=== PATIENT | male | born 1955 | race Caucasian/White ===

== ENCOUNTER 2020-02-15 19:22 | Observation (INO) | payer MEDICARE, SELFPAY ==
--- NOTE | ~2020-02-15 | XR_ITS ---
EXAMINATION: XR hand RT 2V INDICATION: Right hand pain TECHNIQUE: Three views of the right hand are obtained. COMPARISON: None available FINDINGS: There is no acute fracture. There are old fractures of the fifth metacarpal and ulnar stylo id. Ziee-ea-ffbkssbo polyarticular osteoarthritis is present. The soft tissues are unremarkable. IMPRESSION: 1. No acute osseous abnormality. Reviewed, dictated and finalized at location A.
--- NOTE | ~2020-02-15 | CT_ITS ---
EXAMINATION: CT cervical spine wo con DATE: 02/15/2020 20:25 INDICATION: Head injury TECHNIQUE: Computed tomography (CT) of the cervical spine was performed without intravenous contrast. The dose-length product (DLP) was 565.80 mGy-cm. Automated exposure control and iterative reconstruc tion technique were employed. COMPARISON: None FINDINGS: There are 2 mm of anterolisthesis of C2 on C3 and C3 on C4. There is fusion of the C5-C7 ve rtebral bodies. No fracture is identified. There is moderate to severe facet and uncovertebral joint osteoarthritis. The odontoid is intact. The prevertebral soft tissues are normal. IMPRESSION: 1. Severe cervical spondylosis without acute findings. Reviewed, dictated and finalized at location A.
--- NOTE | ~2020-02-15 | XR_ITS ---
EXAMINATION: XR hand LT 2V INDICATION: Left hand pain TECHNIQUE: Three views of the left hand are obtained. COMPARISON: None available FINDINGS: There appear to be prior fractures of the ulnar styloid and lunate. No definite acute osseo us abnormality is identified. There is gahg-pt-orevwnto polyarticular osteoarthritis. The soft tissue s are unremarkable. IMPRESSION: 1. No acute osseous abnormality. Reviewed, dictated and finalized at location A.
--- NOTE | ~2020-02-15 | CT_ITS ---
EXAMINATION: CT brain wo con INDICATION: Head injury COMPARISON: None TECHNIQUE: Standard unenhanced head CT. The dose-length product (DLP) was 605.33 mGy-cm. The mA was a djusted according to patient size. Iterative reconstruction technique was employed. FINDINGS: There is a left frontal scalp hematoma. There is no acute intraparenchymal hemorrhage. No e vidence of mass lesion. No evidence of acute infarction. There is moderate periventricular and subcor tical hypodensity probably related to small vessel ischemic disease. There is moderate prominence of the sulci and ventricles related to cerebral atrophy. Intracranial calcified cerebral atherosclerosis is noted. There are no extra-axial collections. There is no mass effect or midline shift. The orbits are unremarkable. Comminuted bilateral nasal bone fractures are noted. There is mild mucosal thicke nida of the paranasal sinuses. IMPRESSION: 1. Left frontal scalp hematoma without acute intracranial abnormality. 2. Age related findings. 3. Comminuted bilateral nasal bone fractures. Reviewed, dictated and finalized at location A.
--- NOTE | ~2020-02-15 | CT_ITS ---
EXAMINATION: CT facial bones wo con DATE: 02/15/2020 20:26 INDICATION: Head injury, facial pain TECHNIQUE: Computed tomography (CT) of the facial bones and maxillofacial region was performed withou t intravenous contrast. The dose-length product (DLP) was 661.63 mGy-cm. Automated exposure control a nd iterative reconstruction technique were employed. COMPARISON: None. FINDINGS: There are comminuted bilateral nasal bone fractures. A left frontal scalp hematoma is noted . There is partial opacification of the paranasal sinuses. No additional acute abnormality of the fac ial bones is identified. IMPRESSION: 1. Comminuted bilateral nasal bone fractures. Reviewed, dictated and finalized at location A.
[2020-02-15 19:22] VITALS: BP 135/77; PULSE 86; RESP 20; TEMP 36.7; O2SAT 95
[2020-02-15 19:52] LABS: Hematocrit 47.7 % (37.0-46.0); Hemoglobin 16.2 g/dL (12.4-15.3); Mean Corpuscular Hemoglobin 31.4 pg (27.0-31.0); Mean Corpuscular Volume 92.4 fL (78.0-102.0); Mean Platelet Volume 9.4 fl (8.7-11.0); Platelet Count Result 204 K/mm3 (150-420); Red Blood Count 5.16 M/mm3 (4.70-6.10); Red Cell Distribution Width 12.1 % (11.6-14.4); White Blood Count 7.9 K/mm3 (4.8-10.8)
[2020-02-15 20:07] LABS: Alanine Aminotransferase 22 U/L (16-63); Albumin Level 3.8 g/dL (3.4-5.0); Alkaline Phosphatase 95 U/L (46-116); Anion Gap 10 mmol/L (8-16); Aspartate Amino Transferase 16 U/L (15-37); Bilirubin,Total 0.6 mg/dL (0.00-1.00); Blood Urea Nitrogen 14 mg/dL (7-18); Calcium 8.3 mg/dL (8.5-10.1); Carbon Dioxide 26 mmol/L (21-32); Chloride 93 mmol/L (98-108); Estimated Glomerular Filt Rate > 60; Ethanol 129 mg/dL (0-6); Glucose 98 mg/dL (70-99); Osmolality Calculated 268 mOsm/kg (285-295); Partial Thromboplastin Time 27.3 SEC (22.3-31.6); Potassium 4.1 mmol/L (3.5-5.1); Prothrombin Time 10.4 Seconds (9.64-11.0); Sodium 129 mmol/L (136-145); Total Protein 7.2 g/dL (6.4-8.2)
[2020-02-15 20:20] LABS: Creatine Kinase 145 U/L (39-308)
[2020-02-15] MEDS: KETOROLAC 30 MG/ML VIAL (*BKC) IV PUSH (20:22)
[2020-02-15] MEDS: SODIUM CHLORIDE 0.9% IV 1,000 ML 999 ML IV CONT (20:22)
[2020-02-15] MEDS: TETANUS,DIPHTHERIA,AC PERTUSSIS ADULT 0.5 ML (ADACEL) IM (20:23)
[2020-02-15 20:44] LABS: Add Urine Microscopic? YES; Appearance Urine Clear (Clear); Bilirubin Urine Negative (Negative); Blood Urine Negative (Negative); Color Urine Yellow (Yellow); Glucose Urine UA Negative (Negative); Ketones Urine Trace (Negative); Leukocyte Esterase Ur Negative (Negative); Nitrate Urine Negative (Negative); Protein Urine Negative (Negative); Urobilinogen Urine 0.2 mg/dL (0.2-1.0); pH Urine 5.5 (5.0-8.0)
--- NOTE | 2020-02-15 20:48 | PC.NURSE ---
PT SLEEPING, EASILY AROUSED WHEN SPOKEN TO.
[2020-02-15 20:49] LABS: RBC Urine None seen /hpf (0-2)
[2020-02-15 20:50] LABS: Bacteria Urine None seen /hpf; Mucus Urine None seen /lpf; Squamous Epithelial Cell Urine None seen /hpf (Few); WBC Urine None seen /hpf (0-3)
--- NOTE | 2020-02-15 20:57 | PC.NURSE ---
CALL TO [facility] FOR CONSULT WITH ENT/FACIAL. SPOKE WITH
--- NOTE | 2020-02-15 21:30 | ED.FALL ---
HPI - Fall General Chief Complaint: Fall Stated Complaint: ambulance History of Present Illness HPI Narrative: This is a 64-year-old gentleman presents via EMS after he was drinking earlier today and [place] the [address] [place] he was going to [place] he tripped and fell and caused the are nasal epistaxis and of pain nasal bones, was having some neck discomfort unsure of loss of consciousness, and fell on his outstretched hands causing some pain and inflammation. Unsure of loss of consciousness but currently there is no headache no blurry vision no shortness of breath although he did present with epistaxis and deviated septum. There is no chest pain no abdominal pain no fever chills no cough, no nausea or vomiting no abdominal pain. Does have an abrasion to the left frontal scalp above the left eyebrow area small puncture wound to the bridge of his nose. Patient has been drinking alcohol, and took a fall injuring his facial bones with some abrasions and nasal deviation with epistaxis. complaint: fall Onset (ago): hour(s) Fall from: standing Fall witnessed: yes, by bystander Place fall occurred: street Loss of consciousness: unsure Prolonged down time: no Symptoms prior to fall: none Context: tripped/slipped Location of injury: head Related Data Home Medications Medication Instructions Recorded Confirmed albuterol sulfate 2 puff INHALATION PRN 02/15/20 02/15/20 albuterol sulfate [ProAir HFA] 2 puff INHALATION DAILY 02/15/20 02/15/20 amlodipine 5 mg PO DAILY 02/15/20 02/15/20 enalapril maleate 20 mg PO DAILY 02/15/20 02/15/20 gabapentin 600 mg PO DAILY 02/15/20 02/15/20 montelukast 10 mg PO DAILY 02/15/20 02/15/20 sertraline 100 mg PO DAILY 02/15/20 02/15/20 Allergies Allergy/AdvReac Type Severity Reaction Status Date / Time No Known Allergies Allergy Verified 02/15/20 19:56 Review of Systems Review of Systems: All systems reviewed & are unremarkable except as noted in HPI and below PMFSH Past Medical History Medical History COPD (chronic obstructive pulmonary disease) Parkinsons Exam Const: General: no acute distress Orientation/consciousness: patient oriented x3 HENMT: Head: normal to inspection, contusion and hematoma Head images: 1. puncture wound bridge of his nose approximately 0.5cm, and abrasion above his left eyebrow Eyes: Conjunctivae: conjunctivae normal Pupils: Equal, round and reactive pupils present EOM: EOMs intact bilaterally Direct Ophthalmoscopy: no photophobia Neck: Neck: normal visual inspection, no lymphadenopathy and no meningeal signs Chest: Chest palpation & inspection: normal inspection of the chest Resp: Effort & Inspection: normal respiratory effort Auscultation: clear to auscultation bilaterally Cardio: Rate: regular rate Rhythm: regular rhythm GI: Auscultation: normal bowel sounds Urinary Catheter: Urinary Catheter: patent and draining Back/Spine/Pelvis: Back: no CVA tenderness Skin: Wounds: wounds noted Other: avulsion injury to his right hand, puncture wound to the bridge of his nose and abrasion to the left eyebrow area Neuro: General: patient oriented x3, moves all extremities and no meningeal signs Extrem: General: normal to inspection and no pedal edema Psych: Appearance: disheveled Mental Status: mental status grossly normal Affect: normal affect Thought content: Yes Normal thought content present Course Course Emergency Course: reassessment of patient, appears comfortable pain level is adequately controlled after IV Toradol. Informed patient of talking to facial surgeon at [place] in [facility] Dr. Caraballo and informed patient of having a follow-up an 1 to 2 weeks. Vital Signs Vital signs: Vital Signs Temperature 36.7 C 02/15/20 19:22 Pulse Rate 86 02/15/20 19:22 Respiratory Rate 20 02/15/20 19:22 Blood Pressure 135/77 02/15/20 19:22 Puls
[2020-02-15 21:37] VITALS: BP 120/76; PULSE 81; RESP 20; TEMP 37.1; O2SAT 98
[2020-02-15 22:00] VITALS: BP 153/84; PULSE 88; RESP 20; TEMP 37.1; O2SAT 93
--- NOTE | 2020-02-15 22:30 | ADMGEN ---
This patient, Andrez Owens, was admitted to 2nd Floor Room 207-1. Patient oriented to hospital policies and general routines including ID bracelet, bed and alarms, visiting hours, pain management, procedures, bathroom and other care routines, personal items, smoking policy, room service/diet, and visiting hours. Valuables list includes clothing, keys and shoes. Information on how to activate the Rapid Response Team has been discussed. Patient are encouraged to report perceived risks to care and to ask questions if they do not understand what they are told or what they should do.
--- NOTE | 2020-02-15 22:35 | PC.NURSE ---
Patient has steri strips to left hand and has a dressing over bridge of nose with bright red blood on it.
[2020-02-15] MEDS: SODIUM CHLORIDE 0.9% IV 1,000 ML 100 ML IV CONT (22:41)
--- NOTE | 2020-02-15 23:06 | PC.NURSE ---
[facility] pharmacy called questioning patient's albuterol Hfa x2 orders. Spoke with Dr Mina with new orders received and noted.
[2020-02-16] VITALS (9 sets, daily range): BP systolic 93–162; BP diastolic 32–108; PULSE 76–110; RESP 20–24; TEMP 36.7–37.1; O2SAT 93–94; BMI 36.3
[2020-02-16] MEDS: IPRATROPIUM 0.5 MG/ALBUTEROL SULFATE 2.5 MG AMPUL.NEB 3 ML INHALATION ×3 (00:15→12:20)
--- NOTE | 2020-02-16 02:00 | PC.NURSE ---
Dressing to bridge of nose still has same amount of blood as when he was first admitted. Left eyelid beginning to bruise.
--- NOTE | 2020-02-16 06:00 | PC.NURSE ---
Dressing to bridge of nose has more bright blood on it than earlier. Dressing removed and area cleansed with NS. No active bleeding noted. New dressing applied. Left eyelid continues to get more bruised. Patient tolerated well.
[2020-02-16 07:33] LABS: Basophils Absolute Auto 0.02 K/mm3 (0.00-0.10); Basophils Percent Auto 0.4 % (0.0-1.0); Eosinophils Absolute Auto 0.05 K/mm3 (0.02-0.50); Eosinophils Percent Auto 0.9 % (1.0-6.0); Hematocrit 47.5 % (37.0-46.0); Hemoglobin 16.1 g/dL (12.4-15.3); Immature Granulocyte Absolute 0.02 K/mm3 (0.00-0.00); Immature Granulocyte Percent A 0.4 % (0.0-0.0); Lymphocytes Absolute Auto 1.71 K/mm3 (1.10-4.50); Lymphocytes Percent Auto 30.5 % (18.0-42.0); Mean Corpuscular HGB Conc 33.9 g/dL (32.0-36.0); Mean Corpuscular Hemoglobin 30.9 pg (27.0-31.0); Mean Corpuscular Volume 91.2 fL (78.0-102.0); Mean Platelet Volume 9.4 fl (8.7-11.0); Monocytes Absolute Auto 0.55 K/mm3 (0.10-0.90); Monocytes Percent Auto 9.8 % (2.0-11.0); Neutrophils Absolute Auto 3.3 K/mm3 (1.7-7.2); Platelet Count Result 179 K/mm3 (150-420); Red Blood Count 5.21 M/mm3 (4.70-6.10); Red Cell Distribution Width 12.1 % (11.6-14.4); White Blood Count 5.6 K/mm3 (4.8-10.8)
[2020-02-16 08:10] LABS: Alanine Aminotransferase 28 U/L (16-63); Albumin Level 3.4 g/dL (3.4-5.0); Alkaline Phosphatase 88 U/L (46-116); Anion Gap 6 mmol/L (8-16); Aspartate Amino Transferase 15 U/L (15-37); Bilirubin,Total 0.7 mg/dL (0.00-1.00); Blood Urea Nitrogen 10 mg/dL (7-18); Calcium 8.3 mg/dL (8.5-10.1); Carbon Dioxide 29 mmol/L (21-32); Chloride 103 mmol/L (98-108); Estimated CRCL calculation 107 ml/min; Estimated Glomerular Filt Rate > 60; Glucose 116 mg/dL (70-99); Magnesium 2.2 mg/dL (1.8-2.4); Osmolality Calculated 286 mOsm/kg (285-295); Potassium 4.2 mmol/L (3.5-5.1); Sodium 138 mmol/L (136-145); Total Protein 6.7 g/dL (6.4-8.2)
[2020-02-16] MEDS: ALBUTEROL SULFATE (*SP) INHALER 2 PUFF INHALATION (08:23)
[2020-02-16] MEDS: SODIUM CHLORIDE 0.9% IV 1,000 ML 100 ML IV CONT (08:23)
[2020-02-16] MEDS: ACETAMINOPHEN 325 MG TABLET 650 MG PO (08:24)
[2020-02-16] MEDS: ENALAPRIL MALEATE 5 MG TABLET 20 MG PO (08:24)
[2020-02-16] MEDS: GABAPENTIN 300 MG CAPSULE 600 MG PO (08:24)
[2020-02-16] MEDS: MONTELUKAST SODIUM 10 MG TABLET PO (08:24)
[2020-02-16] MEDS: amLODIPine BESYLATE 5 MG TABLET PO (08:25)
[2020-02-16] MEDS: SERTRALINE HCL 50 MG TABLET 100 MG PO (08:25)
--- NOTE | 2020-02-16 14:11 | PM.SD ---
Same Day Admit/Disch: HPI History of Present Illness Chief complaint: ALCOHOL INTOXICATION Narrative: Andrez Owens is a 64 year old male who admits to having a few alcoholic beverages yesterday before walking across the street falling forward injuring his face. Patient states that he only drank 2-3 drinks and he does this only twice a week. EtOH level in the ER was 129. patient does not complain too much about his nasal fracture and did not request any additional pain medication from me. Patient was placed in observation while alcohol levels decreased and to monitor for any mental status changes due to the head injury which there were no changes. [facility] Past Medical History Medical History COPD (chronic obstructive pulmonary disease) Parkinsons Social History Social History Smoking packs per day: 1 Smoking cigarettes per day: 20.0 Years smoked: 47 Smoking pack-years: 47.00 Smoking status: Current every day smoker Tobacco type: cigarettes Second hand tobacco smoke exposure: Yes Alcohol intake: current Drinks per week: 1 Substance use: never Gender identity (if verbalized by the patient): Male Sexual Orientation (if Verbalized by the Patient): Straight or Heterosexual Spiritual care concerns: No Same Day Admit/Disch: Med Pre-admit Medications Home Medications Medication Instructions Recorded Confirmed Type albuterol sulfate 2 puff INHALATION PRN 02/15/20 02/15/20 History albuterol sulfate [ProAir HFA] 2 puff INHALATION DAILY 02/15/20 02/15/20 History amlodipine 5 mg PO DAILY 02/15/20 02/15/20 History enalapril maleate 20 mg PO DAILY 02/15/20 02/15/20 History gabapentin 600 mg PO DAILY 02/15/20 02/15/20 History montelukast 10 mg PO DAILY 02/15/20 02/15/20 History sertraline 100 mg PO DAILY 02/15/20 02/15/20 History Exam Const: General: cooperative and comfortable Nutritional Appearance: obese Orientation/consciousness: oriented to person, oriented to place and oriented to time ( and events) HENMT: Face images: 1. obvious deformity bridge of the nose, swelling, small abrasions Eyes: Alignment and Position: alignment normal Pupils: Equal, round and reactive pupils present Resp: Effort & Inspection: normal respiratory effort Auscultation: clear to auscultation bilaterally Cardio: Rate: regular rate Rhythm: regular rhythm Heart sounds: S1 normal heart sound present and S2 normal heart sound present Neuro: General: oriented to person, oriented to place and oriented to time ( and events) Cranial nerves: Yes CN's II-XII intact bilaterally ( grossly intact) Extrem: Right upper extremity: normal to inspection Left upper extremity: normal to inspection Right lower extremity: no edema Left lower extremity: no edema DS: Data Data Completed and Pending Labs on day of discharge: Labs from last 24 hours 02/16/20 02/16/20 02/15/20 07:27 07:27 20:39 WBC 5.6 RBC 5.21 Hgb 16.1 H Hct 47.5 H MCV 91.2 MCH 30.9 MCHC 33.9 RDW 12.1 Plt Count 179 MPV 9.4 Immature Gran % (Auto) 0.4 H Neut % (Auto) 58.0 Lymph % (Auto) 30.5 Sampson % (Auto) 9.8 Eos % (Auto) 0.9 L Baso % (Auto) 0.4 Lymph # (Auto) 1.71 Sampson # (Auto) 0.55 Eos # (Auto) 0.05 Baso # (Auto) 0.02 Abs Immat Gran (auto) 0.02 H Absolute Neuts (auto) 3.3 Absolute Nucleated RBC 0.00 Nucleated RBC % 0.0 PT INR APTT Sodium 138 Potassium 4.2 Chloride 103 Carbon Dioxide 29 Anion Gap 6 L BUN 10 Creatinine 0.63 L Estim Creat Clear Calc 107 Estimated GFR > 60 Glucose 116 H Calculated Osmolality 286 Calcium 8.3 L Magnesium 2.2 Total Bilirubin 0.7 AST 15 ALT 28 Alkaline Phosphatase 88 Total Creatine Kinase Total Protein 6.7 Albumin 3.4 Urine Color Yellow Urine Appearance
== END 2020-02-16 19:00 | disposition home or self-care (01) ==
LOC: CHSED 21:38 → CHS2ND 02-16 07:52
PROVIDERS: Admitting Provider Emergency Medicine; Emergency Provider Emergency Medicine; Visit Provider Emergency Medicine
DX: S02.2XXA Fracture of nasal bones, initial encounter for closed fracture (principal); S01.23XA Puncture wound without foreign body of nose, initial encounter; W01.0XXA Fall on same level from slipping, tripping and stumbling without subsequent striking against object, initial encounter; E87.1 Hypo-osmolality and hyponatremia; J44.9 Chronic obstructive pulmonary disease, unspecified; G20 Parkinson's disease; R04.0 Epistaxis; F10.920 Alcohol use, unspecified with intoxication, uncomplicated; F17.210 Nicotine dependence, cigarettes, uncomplicated; Z79.899 Other long term (current) drug therapy
CPT/HCPCS: 36415; 70450; 70486; 72125; 73120; 80053; 80307; 81001; 82550; 83735; 85025; 85027; 85610; 85730; 90471; 90715; 94640; 96360; 96361; 96374; 99284; 99285; A9270; G0378; G0379; J1885; J7030

== ENCOUNTER 2020-07-12 12:27 | Emergency (ER) | payer MEDICARE, SELFPAY ==
--- NOTE | ~2020-07-12 | XR_ITS ---
EXAMINATION: XR chest 2V EXAM DATE: 07/12/2020 13:15 INDICATION: Cough and SOB, COPD, . TECHNIQUE: Frontal and lateral projections of the chest obtained and reviewed. Comparison is made to prior examination from 06/12/2006. FINDINGS: Interval development of left lower lobe masslike density measuring about 3 cm. Appearance is suspicious for primary lung cancer. The lungs are otherwise clear. There are no pleural effusions . The cardiomediastinal silhouette is within normal limits. There is no pneumothorax suspected. Mi ld to moderate thoracic spondylosis and mid thoracic compression fractures which appear chronic. IMPRESSION: Left lower lobe masslike opacity suspicious for primary lung cancer. Chest CT with contra st recommended. Reviewed, dictated and finalized at location B. SETTER IMPRESSION: Left lower lobe masslike opacity suspicious for primary lung cancer . Chest CT with contrast recommended.
[2020-07-12 12:54] VITALS: BP 150/88; PULSE 84; RESP 20; TEMP 37.1; O2SAT 95
--- NOTE | 2020-07-12 13:00 | ED.DIZZY ---
HPI - Dizziness General Chief Complaint: Dizziness Stated Complaint: sick /arm and hand pain/ cough Time Seen by Provider: 07/12/20 12:29 Source: patient and RN notes reviewed Mode of arrival: ambulatory Limitations: no limitations History of Present Illness HPI Narrative: patient states that he has had dizziness intermittently for the past 2 months. He was here back in January when he fell while he was inebriated. He spent the night. He says he continues to drink off and on. He says he has been having this dizziness and thinks that his jlspxs-of-lsh is spraying bug spray around the house and through an air-conditioning vent. He also states he has a cough that is worse in the last week. He continues to smoke and says he has a chronic cough from that. He denies any productive sputum. Denies any fever chills. He denies any loss of sense of taste or smell. He does have Parkinson's disease. MD elicited complaint: dizziness Onset (ago): month(s) (about 2 months) Timing: gradual onset and intermittent Severity: moderate Description: lightheadedness and off-balance Exacerbating factors: movement/ambulation Associated symptoms: denies other symptoms Related Data Home Medications Medication Instructions Recorded Confirmed albuterol sulfate 2 puff INHALATION PRN 02/15/20 07/12/20 albuterol sulfate [ProAir HFA] 2 puff INHALATION DAILY 02/15/20 07/12/20 amlodipine 5 mg PO DAILY 02/15/20 07/12/20 enalapril maleate 20 mg PO DAILY 02/15/20 07/12/20 gabapentin 600 mg PO DAILY 02/15/20 07/12/20 montelukast 10 mg PO DAILY 02/15/20 07/12/20 sertraline 100 mg PO DAILY 02/15/20 07/12/20 Allergies Allergy/AdvReac Type Severity Reaction Status Date / Time No Known Allergies Allergy Verified 07/12/20 12:53 Review of Systems Constitutional: Constitutional: Denies chills and Denies fever(s) Cardiovascular: Cardiovascular: Denies chest pain Respiratory: Respiratory: Denies chest congestion and Reports cough ( Not new just seems to be worse in the last few days.) Gastrointestinal: Gastrointestinal: Reports no additional gastrointestinal complaints Genitourinary: Genitourinary: Reports no additional male genitourinary complaints Musculoskeletal: Musculoskeletal: Reports no additional musculoskeletal complaints Neurologic: Reports system reviewed and no additional complaints, except as documented PMFSH Past Medical History Medical History (Updated 07/12/20 @ 14:00 by Singh Neumann MD) COPD (chronic obstructive pulmonary disease) Parkinsons Social History Social History Smoking packs per day: 1 Smoking cigarettes per day: 20.0 Years smoked: 47 Smoking pack-years: 47.00 Smoking status: Current every day smoker Tobacco type: cigarettes Second hand tobacco smoke exposure: Yes Alcohol intake: current Drinks per week: 1 Substance use: never Gender identity (if verbalized by the patient): Male Spiritual care concerns: No Exam Const: General: healthy appearing and no acute distress Nutritional Appearance: well nourished Orientation/consciousness: patient oriented x3 HENMT: Head: normal to inspection Face and sinus: normal facial exam Eyes: Conjunctivae: conjunctivae normal Pupils: Equal, round and reactive pupils present EOM: EOMs intact bilaterally Resp: Effort & Inspection: normal respiratory effort Auscultation: clear to auscultation bilaterally, no rales, no rhonchi and no wheezes Cardio: Rate: regular rate Rhythm: regular rhythm Back/Spine/Pelvis: Cervical Spine: cervical ROM normal Thoracic/Lumbar Spine: thoraco-lumbar ROM normal Skin: General skin exam: normal color Rashes: no rashes Neuro: General: patient oriented x3, moves all extremities and no focal motor deficits Speech: normal speech Other: Has a tremor from his Parkinson's Extrem: General: normal to inspection, no clubbing, cyanosis or edema and no edema Psych:
[2020-07-12 13:30] LABS: Basophils Absolute Auto 0.04 K/mm3 (0.00-0.10); Basophils Percent Auto 0.5 % (0.0-1.0); Eosinophils Absolute Auto 0.12 K/mm3 (0.02-0.50); Eosinophils Percent Auto 1.6 % (1.0-6.0); Hematocrit 47.4 % (37.0-46.0); Hemoglobin 15.9 g/dL (12.4-15.3); Immature Granulocyte Absolute 0.02 K/mm3 (0.00-0.00); Immature Granulocyte Percent A 0.3 % (0.0-0.0); Lymphocytes Absolute Auto 2.31 K/mm3 (1.10-4.50); Lymphocytes Percent Auto 30.7 % (18.0-42.0); Mean Corpuscular HGB Conc 33.5 g/dL (32.0-36.0); Mean Corpuscular Hemoglobin 31.2 pg (27.0-31.0); Mean Corpuscular Volume 93.1 fL (78.0-102.0); Mean Platelet Volume 9.4 fl (8.7-11.0); Monocytes Absolute Auto 0.56 K/mm3 (0.10-0.90); Monocytes Percent Auto 7.4 % (2.0-11.0); Neutrophils Absolute Auto 4.5 K/mm3 (1.7-7.2); Neutrophils Percent Auto 59.5 % (50.0-70.0); Platelet Count Result 193 K/mm3 (150-420); Red Blood Count 5.09 M/mm3 (4.70-6.10); Red Cell Distribution Width 12.3 % (11.6-14.4); White Blood Count 7.5 K/mm3 (4.8-10.8)
[2020-07-12 13:44] LABS: Alanine Aminotransferase 22 U/L (16-63); Albumin Level 3.7 g/dL (3.4-5.0); Alkaline Phosphatase 70 U/L (46-116); Aspartate Amino Transferase 10 U/L (15-37); Bilirubin,Total 0.5 mg/dL (0.00-1.00); Blood Urea Nitrogen 22 mg/dL (7-18); Calcium 9.1 mg/dL (8.5-10.1); Carbon Dioxide 32 mmol/L (21-32); Estimated CRCL calculation 98 ml/min; Estimated Glomerular Filt Rate > 60; Glucose 106 mg/dL (70-99); Magnesium 2.2 mg/dL (1.8-2.4); Total Protein 6.8 g/dL (6.4-8.2)
[2020-07-12 13:45] LABS: Ethanol < 3 mg/dL (0-6)
[2020-07-12 13:46] LABS: CRP 0.2 mg/dL (0.0-0.9)
[2020-07-12 13:53] LABS: Anion Gap 5 mmol/L (8-16); Chloride 102 mmol/L (98-108); Osmolality Calculated 291 mOsm/kg (285-295); Potassium 4.5 mmol/L (3.5-5.1); Sodium 139 mmol/L (136-145)
== END 2020-07-12 13:40 | disposition left against medical advice (07) ==
LOC: CHSED 12:31
PROVIDERS: Emergency Provider Emergency Medicine; PCP Physician Assistant
DX: R42 Dizziness and giddiness (principal); R91.8 Other nonspecific abnormal finding of lung field; J44.9 Chronic obstructive pulmonary disease, unspecified; G20 Parkinson's disease; F17.210 Nicotine dependence, cigarettes, uncomplicated; Z79.899 Other long term (current) drug therapy
CPT/HCPCS: 36415; 71046; 80053; 80307; 83735; 85025; 86140; 99282; 99283

== ENCOUNTER 2020-07-22 12:42 | Outpatient (CLI) | payer MEDICARE, SELFPAY ==
--- NOTE | ~2020-07-22 | CT_ITS ---
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 Abnormal chest x-ray. TECHNIQUE: Spiral CT of the chest following intravenous injection of 75 mL Omnipaque 350. Axial, cor onal and sagittal images were reviewed. Coronal maximum intensity pixel images of chest reviewed. T kaci dose-length product (DLP) for this examination was 503.86 mGy-cm. The exposure was tailored accor ding to patient size (auto mA exposure control), and iterative reconstruction (ASIR) was used as roxi tional dose reduction technique. Correlation is made to chest x-ray 07/12/2019. FINDINGS: There is spiculated right suprahilar nodule measuring 1.4 cm greatest axial dimension, but with soft tissue density filling the right upper lobe apical segmental bronchi. There is lobular left lower lobe nodule measuring 2.4 cm, also likely malignancy. There is a round prevascular lymph node measuring 1.5 cm most likely metastatic. There are no pleural or pericardial effusions. Tracheobro nchial tree is patent. There is no pneumothorax. Heart normal in size. There is moderate roberta nary arterial calcification, arterial sclerosis. Upper abdomen is unremarkable. There is moderate thoracic spondylosis without osteoblastic or osteolytic lesions identified. Sizable bridging endplate osteophytes. IMPRESSION: 1. Right suprahilar and left lower lobe malignancies. Larger left lower lobe nodule would be amenabl e to percutaneous biopsy. 2. Metastatic prevascular lymphadenopathy. 3. Mild emphysema. Reviewed, dictated and finalized at location A. R [employer] SPECIALIST IMPRESSION: 1. Right suprahilar and left lower lobe malignancies. Larger left lower lobe n odule would be amenable to percutaneous biopsy. 2. Metastatic prevascular lymphadenopathy. 3. Mild emphysema.
== END 2020-07-22 12:43 | disposition home or self-care (01) ==
PROVIDERS: PCP Physician Assistant; Visit Provider Physician Assistant
DX: R91.8 Other nonspecific abnormal finding of lung field (principal); C34.32 Malignant neoplasm of lower lobe, left bronchus or lung
CPT/HCPCS: 71260; Q9967

== ENCOUNTER 2020-10-20 12:39 | Outpatient (CLI) | payer MEDICARE, SELFPAY ==
[2020-10-20 13:59] LABS: SARS-CoV-2 Ag Negative (Negative)
== END 2020-10-20 12:40 | disposition home or self-care (01) ==
LOC: CHSLAB 12:41
PROVIDERS: PCP Physician Assistant; Visit Provider Physician Assistant
DX: Z20.822 Contact with and (suspected) exposure to COVID-19 (principal)
CPT/HCPCS: 87426; C9803

== ENCOUNTER 2020-12-09 10:21 | Emergency (ER) | payer MEDICARE, SELFPAY ==
[2020-12-09 11:00] VITALS: BP 120/84; PULSE 80; RESP 22; TEMP 36.5; O2SAT 94
[2020-12-09] MEDS: methylPREDNISolone SOD SUCC 125 MG VIAL IM (12:06)
--- NOTE | 2020-12-09 12:10 | PC.NURSE ---
Pt refusing xrays and lab test because he says he is in a hurry and would like to get out of here. pt agrees to administration of steroid injection. risks and benefits of signing refusal explained to pt by dr sarabia, pt verbalizes understanding.
--- NOTE | 2020-12-09 12:31 | ED.SOB ---
HPI - SOB/Dyspnea General Chief Complaint: Shortness of Breath/Dyspnea Stated Complaint: sick to stomach, just feels ill Time Seen by Provider: 12/09/20 11:02 Source: patient and RN notes reviewed Mode of arrival: ambulatory Limitations: no limitations History of Present Illness MD elicited complaint: shortness of breath Pertinent past history: COPD and asthma Onset (ago): hour(s) (4) Context: smoke/fume exposure (something was sprayed under his apartment door?) Timing: improved Severity: mild Exacerbating factors: nothing Relieving factors: rest Known history of: COPD and asthma Associated symptoms: denies other symptoms Treatment prior to arrival: none Related Data Home Medications Medication Instructions Recorded Confirmed albuterol sulfate 2 puff INHALATION PRN 02/15/20 12/09/20 amlodipine 5 mg PO DAILY 02/15/20 12/09/20 enalapril maleate 20 mg PO DAILY 02/15/20 12/09/20 gabapentin 600 mg PO DAILY 02/15/20 12/09/20 montelukast 10 mg PO DAILY 02/15/20 12/09/20 sertraline 100 mg PO DAILY 02/15/20 12/09/20 Allergies Allergy/AdvReac Type Severity Reaction Status Date / Time No Known Allergies Allergy Verified 12/09/20 10:45 Review of Systems Review of Systems: All systems reviewed & are unremarkable except as noted in HPI and below Constitutional: Constitutional: Reports as per HPI and Reports no additional constitutional complaints Eyes: Eyes: Reports as per HPI and Reports no additional eye complaints ENT: Reports system reviewed and no additional complaints, except as documented and Reports as per HPI Cardiovascular: Cardiovascular: Reports as per HPI and Reports no additional cardiovascular complaints Respiratory: Respiratory: Reports as per HPI, Reports no additional respiratory complaints, Reports dyspnea and Reports wheezing Comments: Pt symptoms were significantly less in the ED. Gastrointestinal: Gastrointestinal: Reports as per HPI and Reports no additional gastrointestinal complaints Genitourinary: Genitourinary: Reports no additional male genitourinary complaints and Reports as per HPI Musculoskeletal: Musculoskeletal: Reports no additional musculoskeletal complaints and Reports as per HPI Integumentary/Breasts: Skin/Breast: Reports system reviewed and no additional complaints, except as docu and Reports as per HPI Neurologic: Reports system reviewed and no additional complaints, except as documented and Reports as per HPI Psychiatric: Psychiatric: Reports no additional psychiatric complaints and Reports as per HPI Endocrine: Endocrine: Reports no additional endocrine complaints and Reports as per HPI Hematologic/Lymphatic: Hematologic/Lymphatic: Reports no additional hematologic/lymphatic complaints and Reports as per HPI Allergic/Immunologic: Allergic/Immunologic: Reports no additional allergic/immunologic complaints and Reports as per HPI PMFSH Past Medical History Medical History COPD (chronic obstructive pulmonary disease) Parkinsons Social History Social History Smoking packs per day: 1 Smoking cigarettes per day: 20.0 Years smoked: 47 Smoking pack-years: 47.00 Smoking status: Current every day smoker Tobacco type: cigarettes Second hand tobacco smoke exposure: Yes Alcohol intake: current Drinks per week: 1 Substance use: never Gender identity (if verbalized by the patient): Male Spiritual care concerns: No Exam Const: General: no acute distress and alert Nutritional Appearance: well nourished Orientation/consciousness: patient oriented x3 HENMT: Head: normal to inspection Ears: external ears normal and TM's normal bilaterally General nose exam: Normal external nose present and Normal nares present Face and sinus: normal facial exam Mouth: Yes moist mucous membranes Throat: posterior oropharynx normal Eyes: Conjunctivae: conjunc
[2020-12-09] MEDS: ALBUTEROL SULFATE (*SP) INHALER 2 PUFF INHALATION (12:32)
[2020-12-09 12:36] VITALS: PULSE 74; RESP 20; O2SAT 94
== END 2020-12-09 12:45 | disposition home or self-care (01) ==
PROVIDERS: Emergency Provider Emergency Medicine; PCP Physician Assistant
DX: J44.9 Chronic obstructive pulmonary disease, unspecified (principal)
CPT/HCPCS: 94640; 96372; 99283; A9270; J2930

== ENCOUNTER 2021-01-19 06:34 | Emergency (ER) | payer MEDICARE, MEDICAID, SELFPAY ==
--- NOTE | ~2021-01-19 | XR_ITS ---
EXAMINATION: XR chest 2V DATE: 01/19/2021 07:00 INDICATION: Shortness of breath, history of lung cancer TECHNIQUE: PA and lateral views of the chest are obtained. COMPARISON: 07/12/[address] dated 07/22/2020 FINDINGS: The lungs are free of acute opacities. A mass of the left lower lobe is not significantly c hanged. There is no pleural effusion or pneumothorax. The heart size is normal. Calcified mediastinal lymph nodes are consistent with old granulomatous disease. There is moderate thoracic spondylosis. IMPRESSION: 1. No acute cardiopulmonary abnormality. 2. Left lower lobe mass without significant change, consistent with primary bronchial carcinoma.. Reviewed, dictated and finalized at location A. IMPRESSION: 1. No acute cardiopulmonary abnormality. 2. Left lower lobe mass without significant change, consistent with primary bro nchial carcinoma..
[2021-01-19 06:34] VITALS: BP 156/104; PULSE 92; PULSE 95; RESP 24; TEMP 36.1; O2SAT 96
[2021-01-19] MEDS: methylPREDNISolone SOD SUCC 125 MG VIAL IV PUSH (06:45)
--- NOTE | 2021-01-19 06:47 | ED.SOB ---
HPI - SOB/Dyspnea General Chief Complaint: Shortness of Breath/Dyspnea Stated Complaint: Ambulance Time Seen by Provider: 01/19/21 07:15 Source: patient and RN notes reviewed Mode of arrival: EMS Limitations: no limitations History of Present Illness HPI Narrative: Patient states that he began getting short of breath yesterday. He has run out of his medicine for his COPD. He denies chest pain, fever chills. He has been vaccinated for the COVID. MD elicited complaint: shortness of breath Pertinent past history: COPD Onset (ago): day(s) (1) Timing: constant and progressively worsening Severity: similar to previous episodes Exacerbating factors: lying flat and exertion Relieving factors: nothing Associated symptoms: denies other symptoms Treatment prior to arrival: oxygen (2L) Related Data Home Medications Medication Instructions Recorded Confirmed albuterol sulfate 2 puff INHALATION PRN 02/15/20 01/19/21 amlodipine 5 mg PO DAILY 02/15/20 01/19/21 enalapril maleate 20 mg PO DAILY 02/15/20 01/19/21 gabapentin 600 mg PO DAILY 02/15/20 01/19/21 montelukast 10 mg PO DAILY 02/15/20 01/19/21 sertraline 100 mg PO DAILY 02/15/20 01/19/21 albuterol sulfate [ProAir HFA] 2 puff INHALATION Q4-5H PRN 01/19/21 01/19/21 budesonide-formoterol [Symbicort] 2 puff INHALATION BID 01/19/21 01/19/21 [id number] 1 ea INHALATION DAILY 01/19/21 01/19/21 [Trelegy Ellipta] Allergies Allergy/AdvReac Type Severity Reaction Status Date / Time No Known Allergies Allergy Verified 12/09/20 10:45 Review of Systems Review of Systems: All systems reviewed & are unremarkable except as noted in HPI and below Constitutional: Constitutional: Denies chills and Denies fever(s) Cardiovascular: Cardiovascular: Denies chest pain and Denies rapid heart rate Gastrointestinal: Gastrointestinal: Denies nausea PMFSH Past Medical History Medical History COPD (chronic obstructive pulmonary disease) Parkinsons Social History Social History Smoking packs per day: 1 Smoking cigarettes per day: 20.0 Years smoked: 47 Smoking pack-years: 47.00 Smoking status: Current every day smoker Tobacco type: cigarettes Second hand tobacco smoke exposure: Yes Alcohol intake: current Drinks per week: 1 Substance use: never Gender identity (if verbalized by the patient): Male Sexual Orientation (if Verbalized by the Patient): Straight or Heterosexual Spiritual care concerns: No Exam Const: General: no acute distress, alert and ill appearing chronically Nutritional Appearance: well nourished Orientation/consciousness: patient oriented x3 HENMT: Head: normal to inspection Ears: external ears normal Face and sinus: normal facial exam Mouth: Yes moist mucous membranes Eyes: Conjunctivae: conjunctivae normal Pupils: Equal, round and reactive pupils present EOM: EOMs intact bilaterally Neck: Neck: normal visual inspection Resp: Effort & Inspection: normal respiratory effort Auscultation: rhonchi throughout and wheezes expiratory wheezes and throughout Cardio: Rate: regular rate Rhythm: regular rhythm GI: GI Palp: Yes Soft to palpation and No Tenderness to palpation present (GI) Auscultation: normal bowel sounds Back/Spine/Pelvis: Cervical Spine: cervical ROM normal Thoracic/Lumbar Spine: thoraco-lumbar ROM normal Skin: General skin exam: normal color Rashes: no rashes Neuro: General: patient oriented x3, moves all extremities, no meningeal signs and no focal motor deficits Speech: normal speech Gait exam (Neuro): Normal gait present Extrem: General: normal to inspection and no pedal edema Psych: Mental Status: mental status grossly normal Affect: normal affect Attitude: cooperative Thought content: Yes Normal thought content present Course Vital Signs Vital signs: Vital Signs Temperature 36.1
[2021-01-19] MEDS: IPRATROPIUM 0.5 MG/ALBUTEROL SULFATE 2.5 MG AMPUL.NEB 3 ML INHALATION ×2 (06:54→11:57)
[2021-01-19 06:58] VITALS: PULSE 76; RESP 24; O2SAT 96
[2021-01-19 07:08] LABS: Basophils Absolute Auto 0.02 K/mm3 (0.00-0.10); Basophils Percent Auto 0.2 % (0.0-1.0); Eosinophils Absolute Auto 0.07 K/mm3 (0.02-0.50); Eosinophils Percent Auto 0.8 % (1.0-6.0); Hematocrit 49.9 % (37.0-46.0); Hemoglobin 17.2 g/dL (12.4-15.3); Immature Granulocyte Absolute 0.03 K/mm3 (0.00-0.00); Immature Granulocyte Percent A 0.4 % (0.0-0.0); Lymphocytes Absolute Auto 1.82 K/mm3 (1.10-4.50); Lymphocytes Percent Auto 21.9 % (18.0-42.0); Mean Corpuscular HGB Conc 34.5 g/dL (32.0-36.0); Mean Corpuscular Hemoglobin 30.8 pg (27.0-31.0); Mean Corpuscular Volume 89.4 fL (78.0-102.0); Mean Platelet Volume 9.1 fl (8.7-11.0); Monocytes Absolute Auto 0.78 K/mm3 (0.10-0.90); Monocytes Percent Auto 9.4 % (2.0-11.0); Neutrophils Absolute Auto 5.6 K/mm3 (1.7-7.2); Neutrophils Percent Auto 67.3 % (50.0-70.0); Platelet Count Result 152 K/mm3 (150-420); Red Blood Count 5.58 M/mm3 (4.70-6.10); Red Cell Distribution Width 12.1 % (11.6-14.4); White Blood Count 8.3 K/mm3 (4.8-10.8)
[2021-01-19 07:10] VITALS: PULSE 86; RESP 22; O2SAT 100
--- NOTE | 2021-01-19 07:15 | ECG_ITS ---
Measurements Intervals [place] Rate: 87 P: 47 AR: 174 QRS: 41 QRSD: 86 T: 44 QT: 360 QTc: 435 Interpretive Statements SINUS RHYTHM BORDERLINE R WAVE PROGRESSION, ANTERIOR LEADS BORDERLINE ST ABNORMALITY- LATERAL LEADS BASELINE ARTIFACT- II, III, AVR, AVL, AVF BORDERLINE ECG Electronically Signed On 01-19-2021 7:29:17 CDT by Cordell Graham D.O.
--- NOTE | 2021-01-19 07:17 | ED.GENADULT ---
HPI - General Adult General Chief complaint: Shortness of Breath/Dyspnea Stated complaint: Ambulance Time Seen by Provider: 01/19/21 07:15 Source: patient and RN notes reviewed Mode of arrival: EMS Limitations: no limitations History of Present Illness HPI narrative: Andrez presented to the ED with shortness of breath. Care was assumed at 0700. Please see Dr. Singh notes for further details. Related Data Home Medications Medication Instructions Recorded Confirmed albuterol sulfate 2 puff INHALATION PRN 02/15/20 01/19/21 amlodipine 5 mg PO DAILY 02/15/20 01/19/21 enalapril maleate 20 mg PO DAILY 02/15/20 01/19/21 gabapentin 600 mg PO DAILY 02/15/20 01/19/21 montelukast 10 mg PO DAILY 02/15/20 01/19/21 sertraline 100 mg PO DAILY 02/15/20 01/19/21 albuterol sulfate [ProAir HFA] 2 puff INHALATION Q4-5H PRN 01/19/21 01/19/21 budesonide-formoterol [Symbicort] 2 puff INHALATION BID 01/19/21 01/19/21 [id number] 1 ea INHALATION DAILY 01/19/21 01/19/21 [Trelegy Ellipta] Allergies Allergy/AdvReac Type Severity Reaction Status Date / Time No Known Allergies Allergy Verified 12/09/20 10:45 Review of Systems Constitutional: Constitutional: Denies chills and Denies fever(s) Eyes: Eyes: Reports no additional eye complaints ENT: Reports system reviewed and no additional complaints, except as documented Cardiovascular: Cardiovascular: Denies chest pain, Denies rapid heart rate and Denies radiating jaw, neck or arm pain Respiratory: Respiratory: Reports as per HPI Gastrointestinal: Gastrointestinal: Reports no additional gastrointestinal complaints Genitourinary: Genitourinary: Reports no additional male genitourinary complaints Musculoskeletal: Musculoskeletal: Reports no additional musculoskeletal complaints Integumentary/Breasts: Skin/Breast: Reports system reviewed and no additional complaints, except as docu Neurologic: Reports system reviewed and no additional complaints, except as documented Psychiatric: Psychiatric: Reports no additional psychiatric complaints Endocrine: Endocrine: Reports no additional endocrine complaints Hematologic/Lymphatic: Hematologic/Lymphatic: Reports no additional hematologic/lymphatic complaints Allergic/Immunologic: Allergic/Immunologic: Reports no additional allergic/immunologic complaints [facility] Past Medical History Medical History (Updated 01/19/21 @ 09:01 by Florian Lino DO) COPD (chronic obstructive pulmonary disease) Parkinsons Social History Social History Smoking packs per day: 1 Smoking cigarettes per day: 20.0 Years smoked: 47 Smoking pack-years: 47.00 Smoking status: Current every day smoker Tobacco type: cigarettes Second hand tobacco smoke exposure: Yes Alcohol intake: current Drinks per week: 1 Substance use: never Gender identity (if verbalized by the patient): Male Sexual Orientation (if Verbalized by the Patient): Straight or Heterosexual Spiritual care concerns: No Exam Const: General: no acute distress and alert Orientation/consciousness: patient oriented x3 Limitations: No altered mental status HENMT: Head: normal to inspection Other: atraumatic Eyes: Pupils: Equal, round and reactive pupils present Chest: Chest palpation & inspection: normal inspection of the chest Resp: Other: Slightly labored respirations. Prolonged expiratory phase. Diffuse wheezing. Productive cough on exam. Can still speak in complete sentences. Cardio: Rate: regular rate Rhythm: regular rhythm GI: Inspection: non-distended GI Palp: Yes Soft to palpation, No Tenderness to palpation present (GI) and No Guarding due to palpation present (GI) Skin: General skin exam: normal color Rashes: no rashes Neuro: General: patient oriented x3, moves all extremities, no focal motor deficits and CN's II-XI intact bilaterally Extrem: General: normal to inspection
--- NOTE | 2021-01-19 07:20 | PC.NURSE ---
report to SCOUT [facility]
[2021-01-19 07:30] LABS: Alanine Aminotransferase 28 U/L (16-63); Albumin Level 3.5 g/dL (3.4-5.0); Alkaline Phosphatase 99 U/L (46-116); Anion Gap 2 mmol/L (8-16); Aspartate Amino Transferase 14 U/L (15-37); Bilirubin,Total 0.5 mg/dL (0.00-1.00); Blood Urea Nitrogen 10 mg/dL (7-18); Calcium 8.8 mg/dL (8.5-10.1); Carbon Dioxide 35 mmol/L (21-32); Chloride 99 mmol/L (98-108); Estimated CRCL calculation 91 ml/min; Estimated Glomerular Filt Rate > 60; Glucose 138 mg/dL (70-99); Magnesium 1.9 mg/dL (1.8-2.4); NT Pro B Type Natriuretic Pept 180 pg/mL (0-125); Osmolality Calculated 283 mOsm/kg (285-295); Potassium 4.5 mmol/L (3.5-5.1); Sodium 136 mmol/L (136-145); Total Protein 6.7 g/dL (6.4-8.2)
[2021-01-19] MEDS: AZITHROMYCIN 250 MG TABLET 500 MG PO (09:05)
[2021-01-19 11:58] VITALS: PULSE 105; RESP 22; O2SAT 95
[2021-01-19 12:08] VITALS: PULSE 85; RESP 22; O2SAT 97
[2021-01-19 12:36] VITALS: BP 154/99; PULSE 92; RESP 20; TEMP 36.8; O2SAT 91
== END 2021-01-19 12:37 | disposition home or self-care (01) ==
PROVIDERS: Emergency Medicine; Emergency Provider Family Medicine; PCP Physician Assistant
DX: J44.1 Chronic obstructive pulmonary disease with (acute) exacerbation (principal); R91.8 Other nonspecific abnormal finding of lung field; F17.200 Nicotine dependence, unspecified, uncomplicated
CPT/HCPCS: 36415; 71046; 80053; 83735; 83880; 85025; 93005; 94640; 96374; 99283; 99284; A9270; J2930

== ENCOUNTER 2021-02-25 19:20 | Emergency (ER) | payer MEDICARE, MEDICAID, SELFPAY ==
--- NOTE | ~2021-02-25 | CT_ITS ---
EXAMINATION:CT diagnostic chest wo con DATE: 02/25/2021 21:53 INDICATION: Left-sided pleurisy. TECHNIQUE: Computed tomography (CT) of the chest was performed without intravenous contrast. Automate d exposure control and iterative reconstruction technique were employed. The dose-length product (DLP ) was 326.41 mGy-cm. COMPARISON: Chest CT 07/22/2020 FINDINGS: There is mild emphysema. A calcified right lung nodule and calcified right hilar and medias tinal lymph nodes are consistent with old granulomatous disease. There is a 1.5 cm nodule in right lo wer lobe. There is a 1.6 cm nodule in right upper lobe. There is a 3.4 x 2.9 cm mass in left lower lo be, worsened from 2.6 x 2.3 cm on 07/22/2020. There is mucous plugging in left lower lobe and lingula. There is mild atelectasis in left lower lobe and lingula. No pleural effusion. There is a 1.9 x 1.6 c m node in the aorticopulmonary window. The heart size is normal. There are coronary artery calcificat ions. No pericardial effusion. There is bilateral gynecomastia. There are old healed bilateral rib fr actures. There is mild chronic height loss of multiple vertebral bodies. There is severe thoracic spo ndylosis. IMPRESSION: 1. Worsened left lung mass, right lung nodules, and mediastinal lymphadenopathy, consistent with meta static lung cancer. 2. Mucous plugging in left lower lobe and lingula with mild atelectasis. 3. Mild emphysema. Reviewed, dictated and finalized at location A. IMPRESSION: 1. Worsened left lung mass, right lung nodules, and mediastinal lymphadenopathy , consistent with metastatic lung cancer. 2. Mucous plugging in left lower lobe and lingula with mild atelectasis. 3. Mild emphysema.
[2021-02-25 19:20] VITALS: BP 138/94; PULSE 58; RESP 16; TEMP 37; O2SAT 94
--- NOTE | 2021-02-25 19:32 | ECG_ITS ---
Measurements Intervals [place] Rate: 81 P: 51 AR: 168 QRS: 20 QRSD: 82 T: 59 QT: 356 QTc: 414 Interpretive Statements SINUS RHYTHM BORDERLINE R WAVE PROGRESSION, ANTERIOR LEADS BASELINE ARTIFACT- I, II, III, AVR, AVL, AVF BORDERLINE ECG Electronically Signed On 02-28-2021 8:16:33 CDT by Cordell Graham D.O.
[2021-02-25 19:48] LABS: Basophils Absolute Auto 0.03 K/mm3 (0.00-0.10); Basophils Percent Auto 0.4 % (0.0-1.0); Eosinophils Absolute Auto 0.06 K/mm3 (0.02-0.50); Eosinophils Percent Auto 0.9 % (1.0-6.0); Hematocrit 45.3 % (37.0-46.0); Hemoglobin 15.7 g/dL (12.4-15.3); Immature Granulocyte Absolute 0.01 K/mm3 (0.00-0.00); Immature Granulocyte Percent A 0.1 % (0.0-0.0); Lymphocytes Percent Auto 30.7 % (18.0-42.0); Mean Corpuscular HGB Conc 34.7 g/dL (32.0-36.0); Mean Corpuscular Hemoglobin 31.3 pg (27.0-31.0); Mean Corpuscular Volume 90.2 fL (78.0-102.0); Mean Platelet Volume 8.8 fl (8.7-11.0); Monocytes Absolute Auto 0.53 K/mm3 (0.10-0.90); Monocytes Percent Auto 7.7 % (2.0-11.0); Neutrophils Absolute Auto 4.1 K/mm3 (1.7-7.2); Neutrophils Percent Auto 60.2 % (50.0-70.0); Platelet Count Result 225 K/mm3 (150-420); Red Blood Count 5.02 M/mm3 (4.70-6.10); Red Cell Distribution Width 12.6 % (11.6-14.4); White Blood Count 6.8 K/mm3 (4.8-10.8)
[2021-02-25] MEDS: KETOROLAC 30 MG/ML VIAL (*BKC) IM (20:03)
[2021-02-25 20:05] VITALS: BP 153/88; PULSE 63; RESP 16; O2SAT 93
[2021-02-25 20:05] LABS: SARS-CoV-2 Ag Negative (Negative)
[2021-02-25 20:10] LABS: Alanine Aminotransferase 25 U/L (16-63); Albumin Level 3.2 g/dL (3.4-5.0); Alkaline Phosphatase 108 U/L (46-116); Anion Gap 9 mmol/L (8-16); Aspartate Amino Transferase 13 U/L (15-37); Bilirubin,Total 0.4 mg/dL (0.00-1.00); Blood Urea Nitrogen 13 mg/dL (7-18); Calcium 8.4 mg/dL (8.5-10.1); Carbon Dioxide 29 mmol/L (21-32); Chloride 97 mmol/L (98-108); Estimated CRCL calculation 93 ml/min; Estimated Glomerular Filt Rate > 60; Glucose 128 mg/dL (70-99); NT Pro B Type Natriuretic Pept 238 pg/mL (0-125); Osmolality Calculated 282 mOsm/kg (285-295); Potassium 4.3 mmol/L (3.5-5.1); Sodium 135 mmol/L (136-145); Total Protein 6.2 g/dL (6.4-8.2); Troponin I 8.7 ng/L (0.00-60.4)
--- NOTE | 2021-02-25 20:16 | ED.CHESTPAIN ---
HPI - Chest Pain General Chief Complaint: Chest Pain Stated Complaint: amb Time Seen by Provider: 02/25/21 19:22 Source: patient, EMS and RN notes reviewed Mode of arrival: EMS Limitations: no limitations History of Present Illness complaint: chest pain (left lower don-lateral chest wall pain x worse this pm. mild chronic SOB ) Pertinent past history: other (lung Ca, COPD on home Tx.) Onset (ago): day(s) (2) Timing of current episode: constant Prior episodes: Yes Onset: during rest Pain location: left chest Pain radiation: none Severity: mild Pain scale (0-10): 4 Quality: aching and tearing Relieving factors: nothing Exacerbating factors: exertion and inspiration Treatment prior to arrival: oxygen Risk Factors Coronary artery disease risk factors: smoking history Related Data Home Medications Medication Instructions Recorded Confirmed albuterol sulfate 2 puff INHALATION PRN 02/15/20 02/25/21 amlodipine 5 mg PO DAILY 02/15/20 02/25/21 enalapril maleate 20 mg PO DAILY 02/15/20 02/25/21 gabapentin 600 mg PO DAILY 02/15/20 02/25/21 montelukast 10 mg PO DAILY 02/15/20 02/25/21 sertraline 100 mg PO DAILY 02/15/20 02/25/21 albuterol sulfate [ProAir HFA] 2 puff INHALATION Q4-5H PRN 01/19/21 02/25/21 budesonide-formoterol [Symbicort] 2 puff INHALATION BID 01/19/21 02/25/21 [id number] 1 ea INHALATION DAILY 01/19/21 02/25/21 [Trelegy Ellipta] Allergies Allergy/AdvReac Type Severity Reaction Status Date / Time No Known Allergies Allergy Verified 12/09/20 10:45 Review of Systems Review of Systems: All systems reviewed & are unremarkable except as noted in HPI and below Respiratory: Respiratory: Reports cough PMFSH Past Medical History Medical History (Updated 02/25/21 @ 21:07 by Shanell Guerrier MD) COPD (chronic obstructive pulmonary disease) Lung cancer Parkinsons Pleurisy without effusion Social History Social History Smoking packs per day: 1 Smoking cigarettes per day: 20.0 Years smoked: 47 Smoking pack-years: 47.00 Smoking status: Current every day smoker Tobacco type: cigarettes Second hand tobacco smoke exposure: Yes Alcohol intake: current Drinks per week: 1 Substance use: never Gender identity (if verbalized by the patient): Male Sexual Orientation (if Verbalized by the Patient): Straight or Heterosexual Spiritual care concerns: No Exam Const: General: no acute distress Nutritional Appearance: well nourished Orientation/consciousness: patient oriented x3 HENMT: Head: normal to inspection Ears: external ears normal and TM's normal bilaterally General nose exam: Normal external nose present and Normal nares present Mouth: Yes moist mucous membranes Eyes: Conjunctivae: conjunctivae normal Pupils: Equal, round and reactive pupils present EOM: EOMs intact bilaterally Neck: Neck: normal visual inspection and no lymphadenopathy Chest: Chest palpation & inspection: normal inspection of the chest Other: tender left don-lateral ribs with no acute redness, swelling or deformity. Resp: Effort & Inspection: normal respiratory effort Auscultation: rhonchi and wheezes Cardio: Rate: regular rate Rhythm: regular rhythm GI: GI Palp: Yes Soft to palpation and No Tenderness to palpation present (GI) Percussion: Yes normal to percussion : General: Yes no CVA tenderness Male General Exam: Yes normal external exam Testes: Testes normal Back/Spine/Pelvis: Back: no CVA tenderness Skin: General skin exam: normal color Rashes: no rashes Neuro: General: patient oriented x3, moves all extremities, no meningeal signs, no focal motor deficits and CN's II-XI intact bilaterally Extrem: General: normal to inspection and no pedal edema Other: Parkinsonism Psych: Appearance: grossly normal and well kempt Mental Status: mental status grossly normal Affect: normal affect Thought content: Yes
[2021-02-25] MEDS: methylPREDNISolone SOD SUCC 125 MG VIAL IV PUSH (20:25)
[2021-02-25] MEDS: ALBUTEROL SULFATE (*SP) INHALER 2 PUFF INHALATION (20:25)
[2021-02-25] MEDS: SODIUM CHLORIDE 0.9% IV 500 ML 999 ML IV CONT (20:25)
[2021-02-25 20:29] LABS: Base Excess ABG -1.5 mmol/L (0-2); HCO3 ABG 22.9 mmol/L (23-29); Oxygen Content ABG 19.7 %vol (16.0-22.0); Oxygen Saturation ABG 93.7 % (95-97); Oxyhemoglobin 87.6 % (94-100); PCO2 ABG 37.8 mmHg (35-45); PO2 ABG 68.6 mmHg (75-85)
[2021-02-25 20:30] LABS: Device ROOM AIR; Modified Allen's Test Pass; Site Drawn LEFT RADIAL
[2021-02-25 22:14] VITALS: BP 140/88; PULSE 81; RESP 18; O2SAT 98
[2021-02-25 23:14] VITALS: BP 138/88; PULSE 80; RESP 18; O2SAT 98
--- NOTE | 2021-02-26 00:40 | PC.NURSE ---
called cab again, still unable to get patient
[2021-02-26 00:41] VITALS: BP 158/70; PULSE 88; RESP 18; O2SAT 95
[2021-02-26 01:00] VITALS: BP 137/78; PULSE 87; RESP 17; TEMP 36.1; O2SAT 97
--- NOTE | 2021-02-26 01:35 | PC.NURSE ---
sitting in lobby waiting for taxi
--- NOTE | 2021-02-26 01:39 | PC.NURSE ---
lila, here patient escorted out
== END 2021-02-26 01:40 | disposition home or self-care (01) ==
PROVIDERS: Emergency Provider Emergency Medicine; PCP Physician Assistant
DX: J44.9 Chronic obstructive pulmonary disease, unspecified (principal); C34.90 Malignant neoplasm of unspecified part of unspecified bronchus or lung; R06.02 Shortness of breath; Z20.822 Contact with and (suspected) exposure to COVID-19
CPT/HCPCS: 36415; 36600; 71250; 80053; 82805; 83880; 84484; 85025; 87426; 93005; 96361; 96372; 96374; 99283; 99284; A9270; C9803; J1885; J2930; J7040

== ENCOUNTER 2021-03-11 14:43 | Observation (INO) | payer MEDICARE, MEDICAID, SELFPAY ==
[2021-03-11] VITALS (7 sets, daily range): BP systolic 142–143; BP diastolic 94–100; PULSE 90–128; RESP 16–20; TEMP 36.8–37; O2SAT 94–97; BMI 26.7
--- NOTE | ~2021-03-11 | CT_ITS ---
EXAMINATION: CT brain wo con DATE: 03/11/2021 16:37 INDICATION: Confusion TECHNIQUE: Computed tomography (CT) of the head was performed without intravenous contrast. The dose- length product was 681.00 mGy-cm. Automated exposure control and iterative reconstruction technique w ere employed. COMPARISON: CT dated 02/15/2020 FINDINGS: Generalized atrophy. There are scattered mild-moderate periventricular and subcortical whit e matter changes, most likely related to small vessel ischemic disease (microangiopathy). No acute in tracranial hemorrhage, infarction, mass or mass effect. No ventriculomegaly or midline shift. Paranas al sinuses and mastoids are pneumatized. No depressed skull fractures. IMPRESSION: 1. No acute intracranial abnormality. 2: Chronic age-related findings. Reviewed, dictated and finalized at location B.
--- NOTE | ~2021-03-11 | MR_ITS ---
EXAMINATION: MR brain/brain stem wo/w con DATE: 03/12/2021 09:12 INDICATION: Confusion, history of lung cancer TECHNIQUE: Magnetic resonance imaging (MRI) of the brain and brainstem was performed without and with intravenous contrast. Sequences included sagittal and axial T1-weighted SE, axial diffusion-weighted FS EPI ASSET, axial T2*-weighted GRE, axial T2-weighted FLAIR Propeller, and axial T2-weighted Prope ller. Postcontrast axial and coronal T1-weighted SE was obtained. Apparent diffusion coefficient (ADC ) maps were created. COMPARISON: None. CONTRAST: Multihance, 15 cc FINDINGS: Motion artifact limits several sequences. There are no areas of restricted diffusion to sug gest acute infarction. There is no acute hemorrhage seen on the T2*, a hemosiderin sensitive sequence . The ventricles are normal in size. There are no extra-axial collections. Flow voids are seen in th e cerebral arteries on the T2-weighted sequences consistent with their expected patency. There are sc attered areas of nonspecific increased T2-weighted signal intensity in the cerebral white matter. Vi sualized orbits and soft tissues are unremarkable. There are no areas of abnormal enhancement on the post contrast images. IMPRESSION: 1. No acute findings. 2. Age related changes. Reviewed, dictated and finalized at location A.
--- NOTE | ~2021-03-11 | CT_ITS ---
EXAMINATION: CTA chest PE protocol DATE: 03/11/2021 16:37 INDICATION: Shortness of breath and elevated d-dimer TECHNIQUE: Computed tomography angiography (CTA) of the chest was performed with 100 mL Omnipaque-350 intravenous contrast timed to evaluate the pulmonary arteries. Coronal maximum intensity projection 3D-reconstructions were created by the technologist. The dose-length product (DLP) was 681.00 mGy-cm. Automated exposure control and iterative reconstruction technique were employed. COMPARISON: 02/25/2021 FINDINGS: The pulmonary arteries are well-opacified. No pulmonary embolism is identified. There is a 3.2 x 3.1 cm mass of the left lower lobe which is not definitely changed since the recent comparison examination. Also seen are stable nodules measuring 1.6 cm in the right upper lobe and 1.5 cm in the right lower lobe. The heart size is normal. Aorticopulmonary window lymphadenopathy is unchanged. Tucker cified pulmonary nodules and calcified right paratracheal lymph nodes are consistent with old granulo matous disease. There is mild emphysema. Calcified coronary artery atherosclerosis is noted. There is bilateral gynecomastia. There is severe thoracic spondylosis with chronic height loss again noted in multiple vertebral bodies. IMPRESSION: 1. No pulmonary embolism. 2. Left lung mass, right lung nodules, and mediastinal lymphadenopathy, consistent with metastatic barb ng cancer. Reviewed, dictated and finalized at location A. IMPRESSION: 1. No pulmonary embolism. 2. Left lung mass, right lung nodules, and mediastinal lymphadenopathy, consist ent with metastatic lung cancer.
--- NOTE | ~2021-03-11 | XR_ITS ---
EXAMINATION: XR chest 1V portable 03/11/2021 15:13 INDICATION: Cough and shortness of breath. PROCEDURE: AP portable chest COMPARISON: Comparison to multiple prior studies sequentially, with oldest reviewed study dated 07/12. FINDINGS: There is a persistent left lower lobe mass measuring approximately 3.6 x 3.2 cm. No focal p neumonia, edema, pleural effusion. The cardiomediastinal silhouette is within normal limits. There are no pleural effusions. There is no pneumothorax suspected. IMPRESSION: 1: Enlarging left lower lobe mass, compatible with bronchogenic carcinoma. Reviewed, dictated and finalized at location B.
--- NOTE | 2021-03-11 15:00 | ECG_ITS ---
Measurements Intervals [place] Rate: 99 P: 56 DE: 165 QRS: 41 QRSD: 90 T: 70 QT: 330 QTc: 423 Interpretive Statements SINUS RHYTHM BORDERLINE R WAVE PROGRESSION, ANTERIOR LEADS BASELINE ARTIFACT- II, III BORDERLINE ECG Electronically Signed On 03-11-2021 15:18:30 CDT by Cordell Graham D.O.
--- NOTE | 2021-03-11 15:09 | ED.GENADULT ---
HPI - General Adult General Chief complaint: Shortness of Breath/Dyspnea Stated complaint: AMB Source: patient and EMS Mode of arrival: ambulatory Limitations: no limitations History of Present Illness HPI narrative: Andrez is a 66M with a PMH of parkinsons, COPD (on 4L at home), and lung cancer that presented to the ED via EMS with SOB and cough. He has had worsening cough and SOB for a few days as well as more sputum production. Per EMS he was 88% on RA but came up to 94% with supplemental O2. He also had an episode where his HR increased to the mid 100's. He denies CP, N/V and lightheadedness. Related Data Home Medications Medication Instructions Recorded Confirmed amlodipine 5 mg PO DAILY 02/15/20 03/11/21 enalapril maleate 20 mg PO DAILY 02/15/20 03/11/21 gabapentin 600 mg PO DAILY 02/15/20 03/11/21 montelukast 10 mg PO DAILY 02/15/20 03/11/21 albuterol sulfate [ProAir HFA] 2 puff INHALATION Q4-5H PRN 01/19/21 03/11/21 budesonide-formoterol [Symbicort] 2 puff INHALATION BID 01/19/21 03/11/21 Allergies Allergy/AdvReac Type Severity Reaction Status Date / Time No Known Allergies Allergy Verified 03/11/21 15:41 Review of Systems Constitutional: Constitutional: Reports no additional constitutional complaints Eyes: Eyes: Reports no additional eye complaints ENT: Reports system reviewed and no additional complaints, except as documented Cardiovascular: Cardiovascular: Reports no additional cardiovascular complaints Respiratory: Respiratory: Reports as per HPI Gastrointestinal: Gastrointestinal: Reports no additional gastrointestinal complaints Genitourinary: Genitourinary: Reports no additional male genitourinary complaints Musculoskeletal: Musculoskeletal: Reports no additional musculoskeletal complaints Integumentary/Breasts: Skin/Breast: Reports system reviewed and no additional complaints, except as docu Neurologic: Reports system reviewed and no additional complaints, except as documented Psychiatric: Psychiatric: Reports no additional psychiatric complaints Endocrine: Endocrine: Reports no additional endocrine complaints Hematologic/Lymphatic: Hematologic/Lymphatic: Reports no additional hematologic/lymphatic complaints Allergic/Immunologic: Allergic/Immunologic: Reports no additional allergic/immunologic complaints [facility] Past Medical History Medical History COPD (chronic obstructive pulmonary disease) Lung cancer Parkinsons Pleurisy without effusion Family History Family History (Updated 03/11/21 @ 18:36 by Charlie Henriquez RN) Mother Chronic obstructive pulmonary disease Father Chronic obstructive pulmonary disease Social History Social History Smoking packs per day: 1 Smoking cigarettes per day: 20.0 Years smoked: 48 Smoking pack-years: 48.00 Smoking status: Current some day smoker Tobacco type: cigarettes Second hand tobacco smoke exposure: Yes Alcohol intake: never Drinks per week: 1 Substance use: never Gender identity (if verbalized by the patient): Male Sexual Orientation (if Verbalized by the Patient): Straight or Heterosexual Spiritual care concerns: No Exam Const: General: no acute distress and alert Orientation/consciousness: patient oriented x3 Limitations: No altered mental status Other: Oriented to person and place. He knew it was February but not what day or part of the month HENMT: Head: normal to inspection Other: normocephalic, atraumatic Eyes: Conjunctivae: conjunctivae normal Pupils: Equal, round and reactive pupils present Neck: Neck: normal visual inspection Chest: Chest palpation & inspection: normal inspection of the chest Resp: Effort & Inspection: normal respiratory effort, not labored and not tachypneic Auscultation: clear to auscultation bilaterally Cardio: Rate: tachycardic Rhythm: regular rhythm GI:
[2021-03-11] MEDS: ALBUTEROL SULFATE (*SP) INHALER 2 PUFF INHALATION ×2 (15:35→18:44)
[2021-03-11 15:40] LABS: HCO3 ABG 24.4 mmol/L (23-29); Oxygen Content ABG 22.2 %vol (16.0-22.0); Oxygen Saturation ABG 94.6 % (95-97); Oxyhemoglobin 90.7 % (94-100); PCO2 ABG 35.6 mmHg (35-45); PO2 ABG 68.2 mmHg (75-85); Total Hemoglobin 17.4 g/dL (12.0-18.0); pH ABG 7.45 (7.35-7.45)
[2021-03-11 15:42] LABS: Basophils Absolute Auto 0.03 K/mm3 (0.00-0.10); Basophils Percent Auto 0.3 % (0.0-1.0); Eosinophils Absolute Auto 0.04 K/mm3 (0.02-0.50); Eosinophils Percent Auto 0.5 % (1.0-6.0); Hematocrit 49.6 % (37.0-46.0); Immature Granulocyte Absolute 0.03 K/mm3 (0.00-0.00); Immature Granulocyte Percent A 0.3 % (0.0-0.0); Lymphocytes Absolute Auto 1.83 K/mm3 (1.10-4.50); Mean Corpuscular HGB Conc 34.3 g/dL (32.0-36.0); Mean Corpuscular Hemoglobin 30.6 pg (27.0-31.0); Mean Corpuscular Volume 89.2 fL (78.0-102.0); Mean Platelet Volume 8.7 fl (8.7-11.0); Monocytes Absolute Auto 0.56 K/mm3 (0.10-0.90); Monocytes Percent Auto 6.4 % (2.0-11.0); Neutrophils Absolute Auto 6.2 K/mm3 (1.7-7.2); Neutrophils Percent Auto 71.5 % (50.0-70.0); Platelet Count Result 233 K/mm3 (150-420); Red Blood Count 5.56 M/mm3 (4.70-6.10); Red Cell Distribution Width 12.4 % (11.6-14.4); White Blood Count 8.7 K/mm3 (4.8-10.8)
[2021-03-11 15:45] LABS: Device ROOM AIR; Modified Allen's Test Pass; Site Drawn RIGHT RADIAL
--- NOTE | 2021-03-11 15:48 | PC.NURSE ---
pt asking for his wallet. [facility] states that the pt informed them that his wallet was in his coat pocket. this staff member gave the pt his coat to check for his wallet. pt did not find a wallet in his coat pockets. pt has a set of keys and cell phone at the bedside. this staff member contacted [facility] and they rechecked the ambulance and did not find a wallet.
--- NOTE | 2021-03-11 15:54 | PC.NURSE ---
pt is alert and oriented to self, month, location. pt did not know the date and is slow to respond to questions. pt is unable to confirmhis past medication history. pt stated, why do i seem to forget things. MD Lino updated.
[2021-03-11 15:58] LABS: Lactic Acid Reflex 1.2 mmol/L (0.4-2.0)
[2021-03-11 16:06] LABS: Alanine Aminotransferase 20 U/L (16-63); Albumin Level 3.5 g/dL (3.4-5.0); Alkaline Phosphatase 105 U/L (46-116); Anion Gap 9 mmol/L (8-16); Aspartate Amino Transferase < 10 U/L (15-37); Bilirubin,Total 0.7 mg/dL (0.00-1.00); Blood Urea Nitrogen 9 mg/dL (7-18); Calcium 8.9 mg/dL (8.5-10.1); Carbon Dioxide 28 mmol/L (21-32); Chloride 96 mmol/L (98-108); Estimated CRCL calculation 81 ml/min; Estimated Glomerular Filt Rate > 60; Glucose 103 mg/dL (70-99); Osmolality Calculated 274 mOsm/kg (285-295); Potassium 4.4 mmol/L (3.5-5.1); Sodium 133 mmol/L (136-145); Total Protein 6.8 g/dL (6.4-8.2)
[2021-03-11 16:07] LABS: Ethanol < 3 mg/dL (0-6)
[2021-03-11 16:08] LABS: Troponin I 24.1 ng/L (0.00-60.4)
[2021-03-11 16:12] LABS: Prothrombin Time 10.3 Seconds (9.64-11.0)
[2021-03-11 16:19] LABS: Influenza A QL RT-PCR Negative (Negative); Influenza B QL RT-PCR Negative (Negative)
[2021-03-11 16:20] LABS: Appearance Urine Clear (Clear); Bilirubin Urine Negative (Negative); Blood Urine Negative (Negative); Color Urine Yellow (Yellow); Glucose Urine UA Negative (Negative); Ketones Urine 1+ (Negative); Leukocyte Esterase Ur Negative (Negative); Nitrate Urine Negative (Negative); Protein Urine Negative (Negative); pH Urine 6.5 (5.0-8.0)
[2021-03-11 16:21] LABS: Add Urine Microscopic? YES
[2021-03-11 16:25] LABS: NT Pro B Type Natriuretic Pept 439 pg/mL (0-125); SARS-CoV-2 RNA PCR Negative (Negative)
[2021-03-11 16:26] LABS: RBC Urine None seen /hpf (0-2); Squamous Epithelial Cell Urine Rare /hpf (Few); WBC Urine None seen /hpf (0-3)
[2021-03-11 16:27] LABS: Bacteria Urine None seen /hpf; Mucus Urine Moderate /lpf
[2021-03-11 16:29] LABS: Amphetamine Screen Urine Negative (Negative); Barbiturate Screen Urine Negative (Negative); Benzodiazepines Screen Urine Negative (Negative); Cannabinoid Screen Urine Negative (Negative); Cocaine Screen Urine Negative (Negative); Methadone Screen Urine Negative (Negative); Opiate Screen Urine Negative (Negative); Phencyclidine Screen Urine Negative (Negative)
[2021-03-11] MEDS: AZITHROMYCIN 250 MG TABLET 500 MG PO (17:23)
[2021-03-11] MEDS: predniSONE 40 MG, predniSONE 10 MG 50 MG PO (17:26)
--- NOTE | 2021-03-11 17:43 | PC.NURSE ---
called charge nurse for 23 hour observation bed for the pt.
--- NOTE | 2021-03-11 17:54 | PC.NURSE ---
reported called to SCOUT [facility], pt going to room 207
[2021-03-12 01:41] VITALS: BP 129/85; PULSE 96; RESP 18; TEMP 36.8; O2SAT 96
[2021-03-12 04:00] VITALS: BP 137/93; PULSE 78; RESP 16; TEMP 36.4; O2SAT 96
[2021-03-12 08:00] VITALS: BP 144/91; PULSE 100; RESP 24; TEMP 36.2; O2SAT 96
[2021-03-12] MEDS: ENOXAPARIN 40 MG/0.4 ML SYRINGE SUB-Q (09:10)
[2021-03-12] MEDS: GABAPENTIN 300 MG CAPSULE 600 MG PO (09:10)
[2021-03-12] MEDS: MONTELUKAST SODIUM 10 MG TABLET PO (09:10)
[2021-03-12] MEDS: ENALAPRIL MALEATE 5 MG TABLET 20 MG PO (09:10)
[2021-03-12] MEDS: AZITHROMYCIN 250 MG TABLET 500 MG PO (09:11)
[2021-03-12] MEDS: amLODIPine BESYLATE 5 MG TABLET PO (09:12)
[2021-03-12] MEDS: BUDESONIDE/FORMOTEROL (*SP) 160-4.5 MCG 6 GM INH 2 PUFF INHALATION (09:13)
--- NOTE | 2021-03-12 10:19 | PM.SD2 ---
Same Day Admit/Disch: HPI History of Present Illness Chief complaint: AMB Narrative: Andrez Owens is a 66 year old male that presented to emergency department with complaints of shortness of breath. Patient has past medical history of COPD, lung cancer, and Parkinson's. According to patient this is not the first time that he has had a COPD exacerbation. According to patient for the last couple of days his shortness of breath has increased, he does use inhalers but did not increase the use of his inhalers nor did he increase the use of his supplementary oxygen. Patient also notes that he has had a COPD exacerbation before he also notes that he has a chronic productive cough with clear sputum .vital signs 144/91, 100, 24, 97.2, 96% on room air, WBCs 8.7, hemoglobin 17, hematocrit 49.6, platelets 233, D-dimer 10.50, sodium 133, potassium 4.4, BUN 9, creatinine 0.73, glucose 103, lactic acid 1.2, troponin 24.1, BNP 439, chest x-ray indicates left lower lobe mass CT of the head with without abnormalities CTA does not indicate pulmonary embolism. Patient condition has improved and he agrees that he is ready for discharge. The patient denies SOB, CP, palpitation, extremity numbness, lightheadedness, dizziness, constipation, diarrhea, chills, or fever. [facility] Past Medical History Medical History COPD (chronic obstructive pulmonary disease) Lung cancer Parkinsons Pleurisy without effusion Family History Family History (Updated 03/11/21 @ 18:36 by Charlei Henriquez RN) Mother Chronic obstructive pulmonary disease Father Chronic obstructive pulmonary disease Social History Social History Smoking packs per day: 1 Smoking cigarettes per day: 20.0 Years smoked: 48 Smoking pack-years: 48.00 Smoking status: Current some day smoker Tobacco type: cigarettes Second hand tobacco smoke exposure: Yes Alcohol intake: never Drinks per week: 1 Substance use: never Gender identity (if verbalized by the patient): Male Sexual Orientation (if Verbalized by the Patient): Straight or Heterosexual Spiritual care concerns: No Same Day Admit/Disch: Med Pre-admit Medications Home Medications Medication Instructions Recorded Confirmed Type amlodipine 5 mg PO DAILY 02/15/20 03/11/21 History enalapril maleate 20 mg PO DAILY 02/15/20 03/11/21 History gabapentin 600 mg PO DAILY 02/15/20 03/11/21 History montelukast 10 mg PO DAILY 02/15/20 03/11/21 History Spiriva with HandiHaler 1 cap INHALATION DAILY #10 inh 01/19/21 03/11/21 Rx albuterol sulfate [ProAir HFA] 2 puff INHALATION Q4-5H PRN 01/19/21 03/11/21 History budesonide-formoterol [Symbicort] 2 puff INHALATION BID 01/19/21 03/11/21 History ibuprofen 800 mg PO TID PRN #20 tablet 02/25/21 03/11/21 Rx omeprazole magnesium [Prilosec OTC] 20 mg PO BID #20 tablet 02/25/21 03/11/21 Rx azithromycin [Zithromax] 500 mg PO DAILY 7 Days #14 tablet 03/12/21 Rx benzonatate [Tessalon Perles] 100 mg PO BID 10 Days #20 cap 03/12/21 Rx guaifenesin 400 mg PO QID 10 Days #40 tablet 03/12/21 Rx prednisone 40 mg PO DAILY@0800 #21 tablet 03/12/21 Rx Exam Narrative: GENERAL: This is a well-nourished, well-developed patient, in no apparent distress. HEAD: normocephalic, atraumatic. EYES: PERRL. Sclera clear/white. Vision is grossly intact. EARS: External ears normal, auditory canals clear and without drainage, TMs normal without perforation. Hearing grossly intact. NOSE: External nose normal with no obvious nasal discharge, nares without redness, no rhinorrhea. THROAT: Mucous membranes moist, posterior pharynx clear. NECK: Neck supple, non-tender without lymphadenopathy, masses or thyromegaly. CARDIOVASCULAR: Regular rate and rhythm without murmurs, gallops, or rubs. RESPIRATORY: Diminished GASTROINTESTINAL: Abdomen soft, non-tender, nondistended. Bowel sounds are active. No hepato-splenomega
[2021-03-12 12:00] VITALS: BP 150/90; PULSE 100; RESP 20; TEMP 36.6; O2SAT 97
--- NOTE | 2021-03-12 13:39 | PC.NURSE ---
Pt given discharge instructions. Medication instructions , follow up appointment instruction. Pt verbalized understanding of instructions. RN transported pt to family car via and assisted him into the car.
--- NOTE | 2021-03-15 11:58 | PC.NURSE ---
Unable to contact for discharge call back.
--- NOTE | 2021-03-15 12:55 | PC.NURSE ---
Pt returned discharge call back phone call. States he received and understood his discharge instructions. Has no other comments.
== END 2021-03-12 13:00 | disposition home or self-care (01) ==
LOC: CHSED 14:49 → CHS2ND 17:48
PROVIDERS: Admitting Provider Family Medicine; Emergency Provider Family Medicine; PCP Physician Assistant; Visit Provider Family Medicine
DX: J44.1 Chronic obstructive pulmonary disease with (acute) exacerbation (principal); J96.01 Acute respiratory failure with hypoxia; C34.32 Malignant neoplasm of lower lobe, left bronchus or lung; E87.1 Hypo-osmolality and hyponatremia; G20 Parkinson's disease; R79.89 Other specified abnormal findings of blood chemistry; F17.210 Nicotine dependence, cigarettes, uncomplicated; Z20.822 Contact with and (suspected) exposure to COVID-19; Z79.899 Other long term (current) drug therapy
CPT/HCPCS: 36415; 36600; 70450; 70553; 71045; 71275; 80053; 80307; 81001; 82805; 83605; 83880; 84484; 85025; 85380; 85610; 87502; 93005; 96372; 99283; 99285; A9270; A9577; C9803; G0378; J1650; J7512; Q9967; U0003; U0005

== ENCOUNTER 2021-04-23 20:42 | Observation (INO) | payer MEDICARE, MEDICAID, SELFPAY ==
--- NOTE | ~2021-04-23 | XR_ITS ---
EXAMINATION: XR chest 2V DATE: 04/23/2021 21:15 INDICATION: Dyspnea. TECHNIQUE: Frontal and lateral views of the chest were obtained. COMPARISON: Chest single view 03/11/2021, chest CT 03/11/2021 FINDINGS: There is a mass in left lung lower lobe. There is a nodule in right lower lobe. No pleural effusion or pneumothorax. The heart size is normal. Calcified mediastinal lymph nodes are consistent with old granulomatous disease. There is chronic height loss of multiple vertebral bodies. IMPRESSION: 1. Mass in left lung lower lobe and nodule in right lung lower lobe, consistent with primary bronchog enic carcinoma and metastatic disease. Reviewed, dictated and finalized at location A. IT UNION MANAGER IMPRESSION: 1. Mass in left lung lower lobe and nodule in right lung lower lobe, consistent with primary bronchogenic carcinoma and metastatic disease.
--- NOTE | 2021-04-23 20:58 | ECG_ITS ---
Measurements Intervals [place] Rate: 81 P: 40 ME: 176 QRS: 9 QRSD: 82 T: 56 QT: 365 QTc: 424 Interpretive Statements SINUS RHYTHM BORDERLINE R WAVE PROGRESSION, ANTERIOR LEADS BASELINE ARTIFACT- I, II, III, AVR, AVL, AVF, V1-V2 BORDERLINE ECG Electronically Signed On 04-24-2021 7:13:58 BAND SAW OPERATOR by Cordell Graham D.O.
[2021-04-23 21:00] VITALS: PULSE 82; O2SAT 98
[2021-04-23 21:02] VITALS: BP 148/96; PULSE 85; RESP 24; TEMP 37.1; O2SAT 98
[2021-04-23 21:35] VITALS: PULSE 88; RESP 22; O2SAT 97
[2021-04-23] MEDS: IPRATROPIUM 0.5 MG/ALBUTEROL SULFATE 2.5 MG AMPUL.NEB 3 ML INHALATION (21:35)
[2021-04-23] MEDS: methylPREDNISolone SOD SUCC 125 MG VIAL IV PUSH (21:35)
[2021-04-23 22:00] VITALS: PULSE 78; RESP 22; O2SAT 99
--- NOTE | 2021-04-23 22:24 | ED.SOB ---
HPI - SOB/Dyspnea General Chief Complaint: Shortness of Breath/Dyspnea Stated Complaint: amb Source: patient and EMS Mode of arrival: EMS Limitations: no limitations History of Present Illness HPI Narrative: this is a 66-year-old gentleman with history of COPD with a history of lung cancer with metastases, presents via EMS with increased shortness of breath nonproductive cough with no chest pain no abdominal pain no fever chills no diarrhea constipation no nausea vomiting. MD elicited complaint: shortness of breath Pertinent past history: COPD Onset (ago): month(s) Severity: moderate Exacerbating factors: nothing Relieving factors: nothing Related Data Home Medications Medication Instructions Recorded Confirmed amlodipine 5 mg PO DAILY 02/15/20 04/23/21 enalapril maleate 20 mg PO DAILY 02/15/20 04/23/21 montelukast 10 mg PO DAILY 02/15/20 04/23/21 albuterol sulfate [ProAir HFA] 2 puff INHALATION Q4-5H PRN 01/19/21 04/23/21 budesonide-formoterol [Symbicort] 2 puff INHALATION BID 01/19/21 04/23/21 gabapentin 800 mg PO TID 04/23/21 04/23/21 Allergies Allergy/AdvReac Type Severity Reaction Status Date / Time No Known Allergies Allergy Verified 03/11/21 15:41 Review of Systems Review of Systems: All systems reviewed & are unremarkable except as noted in HPI and below PMFSH Past Medical History Medical History COPD (chronic obstructive pulmonary disease) Lung cancer Parkinsons Pleurisy without effusion Family History Family History Mother Chronic obstructive pulmonary disease Father Chronic obstructive pulmonary disease Social History Social History Smoking packs per day: 1 Smoking cigarettes per day: 20.0 Years smoked: 48 Smoking pack-years: 48.00 Smoking status: Current some day smoker Tobacco type: cigarettes Second hand tobacco smoke exposure: Yes Alcohol intake: never Drinks per week: 1 Substance use: never Gender identity (if verbalized by the patient): Male Sexual Orientation (if Verbalized by the Patient): Straight or Heterosexual Spiritual care concerns: No Exam Const: General: no acute distress Orientation/consciousness: patient oriented x3 HENMT: Head: normal to inspection Eyes: Conjunctivae: conjunctivae normal Pupils: Equal, round and reactive pupils present Neck: Neck: normal visual inspection, no lymphadenopathy and no meningeal signs Chest: Chest palpation & inspection: normal inspection of the chest Resp: Effort & Inspection: normal respiratory effort Auscultation: diminished lung sounds Cardio: Rate: regular rate Rhythm: regular rhythm GI: GI Palp: Yes Soft to palpation Percussion: Yes normal to percussion Urinary Catheter: Urinary Catheter: patent and draining Back/Spine/Pelvis: Back: no CVA tenderness Skin: General skin exam: normal color Rashes: no rashes Neuro: General: patient oriented x3, moves all extremities, no meningeal signs and no focal motor deficits Extrem: General: normal to inspection and no pedal edema Psych: Mental Status: mental status grossly normal Affect: normal affect Course Course Emergency Course: X-rays and labs were reviewed with patient Vital Signs Vital signs: Vital Signs Pulse Rate 82 04/23/21 21:00 Temperature 37.1 C 04/23/21 21:02 Pulse Rate 85 04/23/21 21:02 Respiratory Rate 24 H 04/23/21 21:02 Blood Pressure 148/96 H 04/23/21 21:02 Pulse Oximetry 98 04/23/21 21:02 Critical Care Time Critical Care Time Critical Care Time: No Discharge Plan Discharge Clinical Impression: COPD (chronic obstructive pulmonary disease) Patient Disposition: Acute Care Hospital Condition: Guarded Prognosis Additional Instructions: Impression COPD exacerbation disposition admission to acute hospital Condi
[2021-04-23 22:26] LABS: Base Excess ABG -0.6 mmol/L (0-2); HCO3 ABG 23.7 mmol/L (23-29); Oxygen Content ABG 20.4 %vol (16.0-22.0); Oxygen Saturation ABG 97.5 % (95-97); Oxyhemoglobin 93.7 % (94-100); PO2 ABG 102.1 mmHg (75-85); Total Hemoglobin 15.4 g/dL (12.0-18.0); pH ABG 7.41 (7.35-7.45)
[2021-04-23 22:29] LABS: Device NASAL CANNULA; Modified Allen's Test Pass; Site Drawn RIGHT RADIAL
[2021-04-23 22:39] LABS: Basophils Absolute Auto 0.03 K/mm3 (0.00-0.10); Basophils Percent Auto 0.4 % (0.0-1.0); Eosinophils Absolute Auto 0.09 K/mm3 (0.02-0.50); Eosinophils Percent Auto 1.1 % (1.0-6.0); Hematocrit 44.1 % (37.0-46.0); Hemoglobin 15.2 g/dL (12.4-15.3); Immature Granulocyte Absolute 0.02 K/mm3 (0.00-0.00); Immature Granulocyte Percent A 0.2 % (0.0-0.0); Lymphocytes Absolute Auto 2.62 K/mm3 (1.10-4.50); Lymphocytes Percent Auto 32.6 % (18.0-42.0); Mean Corpuscular HGB Conc 34.5 g/dL (32.0-36.0); Mean Corpuscular Hemoglobin 31.2 pg (27.0-31.0); Mean Corpuscular Volume 90.6 fL (78.0-102.0); Mean Platelet Volume 9.1 fl (8.7-11.0); Monocytes Percent Auto 7.5 % (2.0-11.0); Neutrophils Absolute Auto 4.7 K/mm3 (1.7-7.2); Neutrophils Percent Auto 58.2 % (50.0-70.0); Platelet Count Result 194 K/mm3 (150-420); Red Blood Count 4.87 M/mm3 (4.70-6.10); Red Cell Distribution Width 12.4 % (11.6-14.4)
[2021-04-23 22:49] LABS: Partial Thromboplastin Time 27.2 SEC (23.90-30.70); Prothrombin Time 10.5 Seconds (9.50-12.10)
[2021-04-23 23:09] LABS: Alanine Aminotransferase 16 U/L (16-63); Albumin Level 3.5 g/dL (3.4-5.0); Alkaline Phosphatase 82 U/L (46-116); Anion Gap 9 mmol/L (8-16); Aspartate Amino Transferase 12 U/L (15-37); Bilirubin,Total 0.7 mg/dL (0.00-1.00); Blood Urea Nitrogen 8 mg/dL (7-18); Calcium 8.6 mg/dL (8.5-10.1); Carbon Dioxide 27 mmol/L (21-32); Chloride 94 mmol/L (98-108); Estimated CRCL calculation 92 ml/min; Estimated Glomerular Filt Rate > 60; Glucose 104 mg/dL (70-99); Osmolality Calculated 268 mOsm/kg (285-295); Potassium 4.2 mmol/L (3.5-5.1); Sodium 130 mmol/L (136-145); Total Protein 6.4 g/dL (6.4-8.2)
[2021-04-23 23:11] LABS: NT Pro B Type Natriuretic Pept 187 pg/mL (0-125); Troponin I 7.9 ng/L (0.00-60.4)
[2021-04-23 23:31] LABS: SARS-CoV-2 RNA PCR Negative (Negative)
--- NOTE | 2021-04-23 23:50 | PC.NURSE ---
POC for 23 hr obs discussed c pt. Pt agreeable to plan. Monitor shows NSR, VSS. Call placed to [facility], 2nd floor for bed assignment, pt to go to Rm [id number].
[2021-04-24] VITALS (14 sets, daily range): BP systolic 123–152; BP diastolic 81–96; PULSE 82–103; RESP 18–22; TEMP 36.2–36.6; O2SAT 90–98; BMI 26.3
[2021-04-24] MEDS: SODIUM CHLORIDE 0.9% IV 1,000 ML 100 ML IV CONT (00:54)
--- NOTE | 2021-04-24 01:15 | ADMGEN ---
This patient, Andrez Owens, was admitted to 2nd Floor Room 226-1. Patient oriented to hospital policies and general routines including ID bracelet, bed and alarms, visiting hours, pain management, procedures, bathroom and other care routines, personal items, smoking policy, room service/diet, and visiting hours. Information on how to activate the Rapid Response Team has been discussed. Patient/Family are encouraged to report perceived risks to care and to ask questions if they do not understand what they are told or what they should do.
[2021-04-24] MEDS: IPRATROPIUM 0.5 MG/ALBUTEROL SULFATE 2.5 MG AMPUL.NEB 3 ML INHALATION ×3 (01:22→13:27)
--- NOTE | 2021-04-24 03:10 | PC.NURSE ---
increase SOB with exertion and getting up frequently to pee, ortiz placed for accurate I/O and improvement of breathing
[2021-04-24] MEDS: methylPREDNISolone SOD SUCC 40 MG VIAL IV PUSH ×2 (05:58→13:26)
--- NOTE | 2021-04-24 06:03 | PC.NURSE ---
Occassional wheezing noted, no acute distress, fluids infusing, ortiz patent and draining
[2021-04-24 06:18] LABS: Hematocrit 45.4 % (37.0-46.0); Hemoglobin 15.6 g/dL (12.4-15.3); Mean Corpuscular HGB Conc 34.4 g/dL (32.0-36.0); Mean Corpuscular Hemoglobin 30.9 pg (27.0-31.0); Mean Corpuscular Volume 89.9 fL (78.0-102.0); Mean Platelet Volume 9.1 fl (8.7-11.0); Platelet Count Result 190 K/mm3 (150-420); Red Blood Count 5.05 M/mm3 (4.70-6.10); Red Cell Distribution Width 12.3 % (11.6-14.4); White Blood Count 2.2 K/mm3 (4.8-10.8)
[2021-04-24 06:49] LABS: Alanine Aminotransferase 15 U/L (16-63); Albumin Level 3.3 g/dL (3.4-5.0); Alkaline Phosphatase 85 U/L (46-116); Anion Gap 9 mmol/L (8-16); Aspartate Amino Transferase < 10 U/L (15-37); Bilirubin,Total 0.7 mg/dL (0.00-1.00); Blood Urea Nitrogen 7 mg/dL (7-18); Calcium 8.7 mg/dL (8.5-10.1); Carbon Dioxide 26 mmol/L (21-32); Chloride 98 mmol/L (98-108); Estimated CRCL calculation 86 ml/min; Estimated Glomerular Filt Rate > 60; Glucose 195 mg/dL (70-99); Osmolality Calculated 279 mOsm/kg (285-295); Potassium 4.8 mmol/L (3.5-5.1); Sodium 133 mmol/L (136-145); Total Protein 6.5 g/dL (6.4-8.2)
[2021-04-24 07:21] LABS: Band Neutrophils Percent 0 % (0-6); Basophils Percent Manual 0 % (0-1); Eosinophils Percent Manual 0 % (1-6); Lymphocytes Absolute Manual 0.41 K/mm3 (1.1-4.5); Lymphocytes Percent Manual 19 % (18-44); Monocytes Absolute Manual 0.11 K/mm3 (0.1-0.90); Monocytes Percent Manual 5 % (3-9); Neutrophils Absolute Manual 1.67 K/mm3 (1.3-6.7); Neutrophils Percent Manual 76 % (46-73); Platelet Estimate Adequate (Adequate)
[2021-04-24] MEDS: BUDESONIDE/FORMOTEROL (*SP) 160-4.5 MCG 6 GM INH 2 PUFF INHALATION (10:12)
[2021-04-24] MEDS: ENOXAPARIN 40 MG/0.4 ML SYRINGE SUB-Q (10:13)
[2021-04-24] MEDS: amLODIPine BESYLATE 5 MG TABLET PO (10:13)
[2021-04-24] MEDS: ENALAPRIL MALEATE 5 MG TABLET 20 MG PO (10:14)
[2021-04-24] MEDS: MONTELUKAST SODIUM 10 MG TABLET PO (10:14)
[2021-04-24] MEDS: GABAPENTIN 400 MG CAPSULE 800 MG PO ×2 (10:14→13:27)
--- NOTE | 2021-04-24 11:48 | PM.SD2 ---
Same Day Admit/Disch: HPI History of Present Illness Chief complaint: COPD/chronic obstruct <PUSHPA Bowers - Last Filed: 04/24/21 15:44> Narrative: Andrez Owens is a 66 year old male that presented to emergency department with complaints of shortness of breath. Patient has a past medical history of COPD, lung cancer, and Parkinson's according to patient approximately 1 month he has been feeling more short of breath than usual. Patient does use continuous oxygen that he has not been using he did note that he had increased use of his nebulizer at home . Patient notes that he has not been using his inhalers because he does not have a prescription for them and have ran out. Patient notes that he has not made an appointment with oncology in a year because they never called him back he will be given a number to our oncologist here at [facility] so that he can make an appointment in discuss his lung cancer with our oncologist. Vital signs 97.3, 90, 20,94% on 2 L nasal cannula, WBCs 2.2, hemoglobin 15.6, hematocrit 45.4, platelets 190, pH 141, 238, O2 102.1 bicarb 23.7, sodium 130, potassium 4.2, BUN 8, creatinine 0.72, glucose 104, magnesium 2.0, liver function test within normal limit, BUN 187, chest x-ray indicates left and right lower lobe mass, EKG sinus rhythm with a heart rate of 81. The patient denies , CP, palpitation, extremity numbness, lightheadedness, dizziness, constipation, diarrhea, chills, or fever. Patient has no complaints this day of discharge notes that his situation has improved he still continues to experience shortness of breath but this is chronic for him. Observation 60 minutes <PUSHPA Bowers - Last Filed: 04/24/21 15:44> [facility] Past Medical History Medical History: Medical History COPD (chronic obstructive pulmonary disease) Lung cancer Parkinsons Pleurisy without effusion <PUSHPA Bowers - Last Filed: 04/24/21 15:44> Family History Family History: Family History Mother Chronic obstructive pulmonary disease Father Chronic obstructive pulmonary disease <PUSHPA Bowers - Last Filed: 04/24/21 15:44> Social History Social History: Social History Smoking packs per day: 1 Smoking cigarettes per day: 20.0 Years smoked: 48 Smoking pack-years: 48.00 Smoking status: Current every day smoker Tobacco type: cigarettes Second hand tobacco smoke exposure: Yes Alcohol intake: former Drinks per week: 1 Substance use: never Gender identity (if verbalized by the patient): Male Sexual Orientation (if Verbalized by the Patient): Straight or Heterosexual Spiritual care concerns: No <PUSHPA Bowers - Last Filed: 04/24/21 15:44> Same Day Admit/Disch: Med Pre-admit Medications Home Medications: Home Medications Medication Instructions Recorded Confirmed Type amlodipine 5 mg PO DAILY 02/15/20 04/23/21 History enalapril maleate 20 mg PO DAILY 02/15/20 04/23/21 History gabapentin 800 mg PO TID 04/23/21 04/23/21 History Spiriva with HandiHaler 1 cap INHALATION DAILY #10 inh 04/24/21 Rx albuterol sulfate [ProAir HFA] 2 puff INHALATION Q4-5H PRN #1 g 04/24/21 Rx azithromycin 500 mg PO DAILY 10 Days #10 tablet 04/24/21 Rx benzonatate 200 mg PO TID PRN #60 cap 04/24/21 Rx budesonide-formoterol [Symbicort] 2 puff INHALATION BID #10.2 g 04/24/21 Rx guaifenesin 400 mg PO QID #30 tablet 04/24/21 Rx montelukast 10 mg PO DAILY #60 tablet 04/24/21 Rx prednisone See Taper PO DAILY 12 Days #42 04/24/21 Rx tablet <PUSHPA Bowers - Last Filed: 04/24/21 15:44> Exam Narrative: GENERAL: This is a well-nourished, well-developed patient, in no apparent distress. HEAD: normocephalic, atraumatic. EYES: PERRL. Sclera clear/white. Vision is grossly
--- NOTE | 2021-04-24 13:45 | PC.NURSE ---
[facility] cab contacted to transport patient home, patient agreed to parks of transport. Cab will be here to pick patient up around 1430.
--- NOTE | 2021-04-24 14:20 | PC.NURSE ---
Addendum entered by Sejal Sharp RN 04/24/21 20:14: Home medications returned to patient, patient had wallet at discharge. Original Note: All discharge instructions and education reviewed with patient. Patient states understanding. All belongings gathered and sent home with patient. IV site removed, tip intact. Dressing applied to site. Patient accompanied to front door, patient ambulatory. Patient left via taxi cab. Denies any questions at discharge.
--- NOTE | 2021-04-25 13:57 | PC.NURSE ---
Invalid phone number.
== END 2021-04-24 14:20 | disposition home or self-care (01) ==
LOC: CHSED 23:47 → CHS2ND 04-24 11:46
PROVIDERS: Admitting Provider Emergency Medicine; Emergency Provider Emergency Medicine; PCP Physician Assistant; Visit Provider Emergency Medicine
DX: J44.9 Chronic obstructive pulmonary disease, unspecified (principal); E87.1 Hypo-osmolality and hyponatremia; C34.90 Malignant neoplasm of unspecified part of unspecified bronchus or lung; C79.9 Secondary malignant neoplasm of unspecified site; R09.1 Pleurisy; G20 Parkinson's disease; F17.210 Nicotine dependence, cigarettes, uncomplicated; Z20.822 Contact with and (suspected) exposure to COVID-19; Z99.81 Dependence on supplemental oxygen
CPT/HCPCS: 36415; 36600; 71046; 80053; 82805; 83735; 83880; 84484; 85025; 85610; 85730; 93005; 94640; 96361; 96372; 96374; 96376; 99285; A9270; C9803; G0378; J1650; J2920; J2930; J7030; U0003; U0005

== ENCOUNTER 2021-06-03 17:33 | Emergency (ER) | payer MEDICARE, MEDICAID, SELFPAY ==
--- NOTE | ~2021-06-03 | CT_ITS ---
EXAMINATION: CT diagnostic chest wo con DATE: 06/03/2021 20:12 INDICATION: Shortness of breath and wheezing TECHNIQUE: Computed tomography (CT) of the chest was performed without intravenous contrast. The dose -length product (DLP) was 378.34 mGy-cm. Automated exposure control and iterative reconstruction tech [employer] were employed. COMPARISON: 03/11/2021 FINDINGS: The previously described left lower lobe nodule is similar in size measuring 3.3 x 3.3 cm. A nodule down demonstrates central cavitation with an irregular thick wall. Again seen are stable nod ules measuring 1.6 and 1.5 cm in the right upper lobe and right lower lobe, respectively. There is no pleural effusion or pneumothorax. The lungs are free of acute opacities. Aorticopulmonary window lym phadenopathy is stable. Calcified pulmonary nodules and calcified right paratracheal lymph nodes are consistent with old granulomatous disease. The heart size is normal. Gynecomastia is noted. There is calcified coronary artery atherosclerosis. There is severe thoracic spondylosis. Chronic vertebral lam dy height loss is again noted at multiple levels. IMPRESSION: 1. Left lower lobe mass, similar in size but now with central cavitation, consistent with lung cancer and possible treatment response. 2. Stable right lung nodules and mediastinal lymphadenopathy, consistent with metastatic disease. Reviewed, dictated and finalized at location F. TEGIC ACCOUNT EXECUTIVE IMPRESSION: 1. Left lower lobe mass, similar in size but now with central cavitation, consi stent with lung cancer and possible treatment response. 2. Stable right lung nodules and mediastinal lymphadenopathy, consistent with m etastatic disease.
--- NOTE | 2021-06-03 17:50 | ECG_ITS ---
Measurements Intervals [place] Rate: 90 P: 45 CA: 167 QRS: 30 QRSD: 93 T: 71 QT: 354 QTc: 435 Interpretive Statements SINUS RHYTHM BORDERLINE R WAVE PROGRESSION, ANTERIOR LEADS BASELINE ARTIFACT- I, III, AVL, AVF BORDERLINE ECG Electronically Signed On 06-03-2021 20:28:06 CEO AND PRESIDENT by Cordell Graham D.O.
[2021-06-03 17:54] VITALS: BP 145/103; PULSE 97; RESP 20; TEMP 36.2; O2SAT 95
[2021-06-03] MEDS: methylPREDNISolone SOD SUCC 125 MG VIAL IV PUSH (18:16)
[2021-06-03 18:27] VITALS: O2SAT 96
[2021-06-03 18:42] LABS: Basophils Absolute Auto 0.01 K/mm3 (0.00-0.10); Basophils Percent Auto 0.1 % (0.0-1.0); Eosinophils Absolute Auto 0.01 K/mm3 (0.02-0.50); Eosinophils Percent Auto 0.1 % (1.0-6.0); Hematocrit 44.5 % (37.0-46.0); Hemoglobin 14.6 g/dL (12.4-15.3); Immature Granulocyte Absolute 0.02 K/mm3 (0.00-0.00); Immature Granulocyte Percent A 0.3 % (0.0-0.0); Lymphocytes Absolute Auto 0.91 K/mm3 (1.10-4.50); Lymphocytes Percent Auto 12.8 % (18.0-42.0); Mean Corpuscular HGB Conc 32.8 g/dL (32.0-36.0); Mean Corpuscular Hemoglobin 30.3 pg (27.0-31.0); Mean Corpuscular Volume 92.3 fL (78.0-102.0); Mean Platelet Volume 9.1 fl (8.7-11.0); Monocytes Absolute Auto 0.19 K/mm3 (0.10-0.90); Monocytes Percent Auto 2.7 % (2.0-11.0); Platelet Count Result 214 K/mm3 (150-420); Red Blood Count 4.82 M/mm3 (4.70-6.10); White Blood Count 7.1 K/mm3 (4.8-10.8)
[2021-06-03 19:07] LABS: Alanine Aminotransferase 16 U/L (16-63); Albumin Level 3.4 g/dL (3.4-5.0); Alkaline Phosphatase 81 U/L (46-116); Anion Gap 8 mmol/L (8-16); Aspartate Amino Transferase 12 U/L (15-37); Bilirubin,Total 0.3 mg/dL (0.00-1.00); Blood Urea Nitrogen 8 mg/dL (7-18); Calcium 8.7 mg/dL (8.5-10.1); Carbon Dioxide 29 mmol/L (21-32); Chloride 99 mmol/L (98-108); Estimated CRCL calculation 76 ml/min; Estimated Glomerular Filt Rate > 60; Glucose 146 mg/dL (70-99); Osmolality Calculated 283 mOsm/kg (285-295); Potassium 4.6 mmol/L (3.5-5.1); Sodium 136 mmol/L (136-145); Total Protein 6.7 g/dL (6.4-8.2)
[2021-06-03 19:32] LABS: NT Pro B Type Natriuretic Pept 252 pg/mL (0-125); Troponin I 9.4 ng/L (0.00-60.4)
[2021-06-03 19:37] VITALS: PULSE 90; RESP 20; O2SAT 97
[2021-06-03] MEDS: ALBUTEROL SULFATE (*SP) INHALER 4 PUFF INHALATION (19:37)
[2021-06-03 19:39] VITALS: PULSE 96; RESP 20; O2SAT 96
[2021-06-03 19:42] LABS: Add Urine Microscopic? NO; Appearance Urine Clear (Clear); Bilirubin Urine Negative (Negative); Blood Urine Negative (Negative); Color Urine Light Yellow (Yellow); Glucose Urine UA Negative (Negative); Ketones Urine Negative (Negative); Leukocyte Esterase Ur Negative (Negative); Nitrate Urine Negative (Negative); Protein Urine Negative (Negative); Specific Grav Ur 1.015 (1.010-1.020); Urobilinogen Urine 0.2 mg/dL (0.2-1.0)
[2021-06-03 19:52] LABS: SARS-CoV-2 Ag Negative (Negative)
--- NOTE | 2021-06-03 20:44 | ED.SOB ---
HPI - SOB/Dyspnea General Chief Complaint: Shortness of Breath/Dyspnea Stated Complaint: AMB Time Seen by Provider: 06/03/21 17:36 Source: patient and RN notes reviewed Mode of arrival: ambulatory Limitations: no limitations History of Present Illness MD elicited complaint: shortness of breath and cough Pertinent past history: COPD and other (lung Ca) Onset (ago): day(s) (1) Context: medication noncompliance Timing: constant Severity: mild Exacerbating factors: nothing Relieving factors: nothing Known history of: COPD Associated symptoms: cough Treatment prior to arrival: none Related Data Home Medications Medication Instructions Recorded Confirmed amlodipine 5 mg PO DAILY 02/15/20 06/03/21 enalapril maleate 20 mg PO DAILY 02/15/20 06/03/21 gabapentin 800 mg PO TID 04/23/21 06/03/21 Allergies Allergy/AdvReac Type Severity Reaction Status Date / Time No Known Allergies Allergy Verified 03/11/21 15:41 Review of Systems Review of Systems: All systems reviewed & are unremarkable except as noted in HPI and below Respiratory: Respiratory: Reports cough, Reports dyspnea and Reports wheezing PMFSH Past Medical History Medical History COPD (chronic obstructive pulmonary disease) Lung cancer Parkinsons Pleurisy without effusion Family History Family History Mother Chronic obstructive pulmonary disease Father Chronic obstructive pulmonary disease Social History Social History Smoking packs per day: 1 Smoking cigarettes per day: 20.0 Years smoked: 48 Smoking pack-years: 48.00 Smoking status: Current every day smoker Tobacco type: cigarettes Second hand tobacco smoke exposure: Yes Alcohol intake: former Drinks per week: 1 Substance use: never Gender identity (if verbalized by the patient): Male Sexual Orientation (if Verbalized by the Patient): Straight or Heterosexual Spiritual care concerns: No Exam Const: General: no acute distress Nutritional Appearance: well nourished Orientation/consciousness: patient oriented x3 Limitations: no limitations HENMT: Head: normal to inspection Ears: external ears normal and TM's normal bilaterally General nose exam: Normal external nose present and Normal nares present Mouth: Yes moist mucous membranes Neck: Neck: normal visual inspection and no lymphadenopathy Chest: Chest palpation & inspection: normal inspection of the chest Resp: Effort & Inspection: labored and uses accessory muscles Auscultation: rhonchi and wheezes Cardio: Rate: regular rate Rhythm: regular rhythm GI: GI Palp: Yes Soft to palpation and No Tenderness to palpation present (GI) Auscultation: normal bowel sounds : Male General Exam: Yes normal external exam Back/Spine/Pelvis: Back: no CVA tenderness Skin: General skin exam: normal color Rashes: no rashes Neuro: General: patient oriented x3, moves all extremities, no meningeal signs, no focal motor deficits and CN's II-XI intact bilaterally Extrem: General: normal to inspection Psych: Mental Status: mental status grossly normal Affect: normal affect Attitude: cooperative Thought content: Yes Normal thought content present Course Course Emergency Course: Pt was less SOB in the ED. Reevaluation(s) Reevaluation #1: VSS. pt was slightly more comfortable. Date: 06/03/21 Time: 18:34 Vital Signs Vital signs: Vital Signs Temperature 36.2 C L 06/03/21 17:54 Pulse Rate 97 06/03/21 17:54 Respiratory Rate 20 06/03/21 17:54 Blood Pressure 145/103 H 06/03/21 17:54 Pulse Oximetry 95 06/03/21 17:54 Temperature 36.8 C 06/03/21 21:03 Pulse Rate 97 06/03/21 21:03 Respiratory Rate 16 06/03/21 21:03 Blood Pressure 145/94 H 06/03/21 21:03 Pulse Oximetry 96 06/03/21 21:03 MDM - SOB/Dyspnea Differential D
[2021-06-03 21:03] VITALS: BP 145/94; PULSE 97; RESP 16; TEMP 36.8; O2SAT 96
== END 2021-06-03 21:25 | disposition home or self-care (01) ==
PROVIDERS: Emergency Provider Emergency Medicine; PCP Physician Assistant
DX: G20 Parkinson's disease (principal); C34.32 Malignant neoplasm of lower lobe, left bronchus or lung; J44.1 Chronic obstructive pulmonary disease with (acute) exacerbation; Z20.822 Contact with and (suspected) exposure to COVID-19; J44.9 Chronic obstructive pulmonary disease, unspecified; F17.200 Nicotine dependence, unspecified, uncomplicated
CPT/HCPCS: 36415; 71250; 80053; 81003; 83880; 84484; 85025; 87426; 93005; 94640; 96374; 99283; 99284; A9270; C9803; J2930

== ENCOUNTER 2021-06-19 17:57 | Emergency (ER) | payer MEDICARE, MEDICAID, SELFPAY ==
--- NOTE | ~2021-06-19 | CT_ITS ---
EXAMINATION: CT diagnostic chest wo con DATE: 06/19/2021 19:55 INDICATION: Shortness of breath, dyspnea for 3 days, worse today. History of asthma, COPD. Smoker. TECHNIQUE: Computed tomography (CT) of the chest was performed without intravenous contrast. Automate d exposure control and iterative reconstruction technique were employed. Exam dose: 233.68 mGy-cm to gurpreet exam DLP. COMPARISON: 06/03/2021 CTA chest 04/23/2021 2 view chest FINDINGS: There is a stable cavitating irregular thick-walled 3.2 cm left lower lobe mass. There is irregular narrowing of the proximal left lower lobe bronchus. There is a stable 1.5 cm solid right lower lobe pulmonary mass. There is a stable 1.6 cm right suprahilar mass or adenopathy. Mildly enlarged 13 x 17 mm aortopulmonary window lymph node, which measured approximately 11.8 x 14.4 mm on 06/03/2021. No pulmonary infiltrate or consolidation. Emphysematous changes are noted. Normal heart size. There is coronary artery calcification. No thoracic aortic aneurysm. No pericardial or pleural effusion. The adrenal glands are unremarkable. Multiple subacute or old bilateral rib fractures. Diffuse idiopathic skeletal hyperostosis of the tho racic spine. Moderate anterior wedge compression fracture deformity of T6 and T12. Severe degenerative disease of the included upper lumbar spine. IMPRESSION: Little interval change since 04/2021/ Reviewed, dictated and finalized at [facility]. Reviewed, dictated and finalized at [facility]. S INCENTIVE ANALYST
[2021-06-19 18:00] VITALS: BP 120/97; PULSE 110; RESP 20; TEMP 36.8; O2SAT 90
--- NOTE | 2021-06-19 18:39 | ECG_ITS ---
Measurements Intervals [place] Rate: 94 P: CT: 0 QRS: 62 QRSD: 82 T: 66 QT: 340 QTc: 426 Interpretive Statements SINUS RHYTHM INCOMPLETE RIGHT BUNDLE BRANCH BLOCK BASELINE ARTIFACT- I, II, AVR, AVL, AVF, V1-V2, V4-V6 BORDERLINE ECG Electronically Signed On 06-19-2021 20:32:28 SCHOOL OPERATIONS MANAGER by Cordell Graham D.O.
[2021-06-19 19:09] LABS: SARS-CoV-2 RNA PCR Negative (Negative)
[2021-06-19 19:15] LABS: Base Excess ABG 0.8 mmol/L (0-2); Oxygen Saturation ABG 93.2 % (95-97); Oxyhemoglobin 90.7 % (94-100); PCO2 ABG 43.2 mmHg (35-45); Total Hemoglobin 15.7 g/dL (12.0-18.0)
[2021-06-19 19:16] LABS: Device NASAL CANNULA; Modified Allen's Test Pass; Site Drawn LEFT RADIAL
[2021-06-19 19:17] LABS: Influenza Control Valid (Valid)
[2021-06-19 19:21] LABS: Basophils Absolute Auto 0.01 K/mm3 (0.00-0.10); Basophils Percent Auto 0.2 % (0.0-1.0); Eosinophils Absolute Auto 0.02 K/mm3 (0.02-0.50); Eosinophils Percent Auto 0.3 % (1.0-6.0); Hematocrit 46.8 % (37.0-46.0); Hemoglobin 15.6 g/dL (12.4-15.3); Immature Granulocyte Absolute 0.02 K/mm3 (0.00-0.00); Immature Granulocyte Percent A 0.3 % (0.0-0.0); Lymphocytes Absolute Auto 1.56 K/mm3 (1.10-4.50); Lymphocytes Percent Auto 26.3 % (18.0-42.0); Mean Corpuscular HGB Conc 33.3 g/dL (32.0-36.0); Mean Corpuscular Hemoglobin 30.5 pg (27.0-31.0); Mean Corpuscular Volume 91.6 fL (78.0-102.0); Monocytes Absolute Auto 0.57 K/mm3 (0.10-0.90); Monocytes Percent Auto 9.6 % (2.0-11.0); Neutrophils Absolute Auto 3.8 K/mm3 (1.7-7.2); Neutrophils Percent Auto 63.3 % (50.0-70.0); Platelet Count Result 163 K/mm3 (150-420); Red Blood Count 5.11 M/mm3 (4.70-6.10); White Blood Count 5.9 K/mm3 (4.8-10.8)
[2021-06-19 19:41] LABS: Alanine Aminotransferase 19 U/L (16-63); Albumin Level 3.3 g/dL (3.4-5.0); Alkaline Phosphatase 81 U/L (46-116); Anion Gap 8 mmol/L (8-16); Aspartate Amino Transferase 13 U/L (15-37); Bilirubin,Total 0.5 mg/dL (0.00-1.00); Blood Urea Nitrogen 14 mg/dL (7-18); Calcium 8.1 mg/dL (8.5-10.1); Carbon Dioxide 29 mmol/L (21-32); Chloride 94 mmol/L (98-108); Estimated CRCL calculation 95 ml/min; Estimated Glomerular Filt Rate > 60; Glucose 105 mg/dL (70-99); Osmolality Calculated 272 mOsm/kg (285-295); Potassium 4.2 mmol/L (3.5-5.1); Sodium 131 mmol/L (136-145); Total Protein 6.5 g/dL (6.4-8.2); Troponin I 16.2 ng/L (0.00-60.4)
[2021-06-19] MEDS: ALBUTEROL SULFATE (*SP) INHALER 4 PUFF INHALATION ×2 (19:44→21:25)
[2021-06-19] MEDS: UMECLIDINIUM BROMIDE 62.5 MCG ELLIPTA 1 PUFF INHALATION (19:44)
[2021-06-19] MEDS: methylPREDNISolone SOD SUCC 125 MG VIAL IV PUSH (19:44)
--- NOTE | 2021-06-19 19:47 | PC.NURSE ---
report to clare bermeo
[2021-06-19 20:07] VITALS: BP 143/94; PULSE 96; RESP 22; TEMP 36.8; O2SAT 90
[2021-06-19 20:18] LABS: Add Urine Microscopic? NO; Appearance Urine Clear (Clear); Bilirubin Urine Negative (Negative); Blood Urine Negative (Negative); Color Urine Light Yellow (Yellow); Glucose Urine UA Negative (Negative); Ketones Urine Negative (Negative); Leukocyte Esterase Ur Negative (Negative); Nitrate Urine Negative (Negative); Protein Urine Negative (Negative); Urobilinogen Urine 0.2 mg/dL (0.2-1.0)
--- NOTE | 2021-06-19 21:11 | ED.SOB ---
HPI - SOB/Dyspnea General Chief Complaint: Shortness of Breath/Dyspnea Stated Complaint: SOB Time Seen by Provider: 06/19/21 17:59 Source: patient, EMS, RN notes reviewed and old records reviewed Mode of arrival: EMS Limitations: no limitations History of Present Illness MD elicited complaint: shortness of breath Pertinent past history: COPD Onset (ago): day(s) (1) Context: recent illness and medication noncompliance Timing: constant Severity: moderate Exacerbating factors: nothing Relieving factors: bronchodilators Known history of: COPD and other (lung Ca) Associated symptoms: denies other symptoms Treatment prior to arrival: oxygen and bronchodilator Related Data Home Medications Medication Instructions Recorded Confirmed amlodipine 5 mg PO DAILY 02/15/20 06/19/21 enalapril maleate 20 mg PO DAILY 02/15/20 06/19/21 gabapentin 800 mg PO TID 04/23/21 06/19/21 Allergies Allergy/AdvReac Type Severity Reaction Status Date / Time No Known Allergies Allergy Verified 03/11/21 15:41 Review of Systems Review of Systems: All systems reviewed & are unremarkable except as noted in HPI and below Respiratory: Respiratory: Reports cough, Reports dyspnea and Reports wheezing PMFSH Past Medical History Medical History COPD (chronic obstructive pulmonary disease) Lung cancer Parkinsons Pleurisy without effusion Family History Family History Mother Chronic obstructive pulmonary disease Father Chronic obstructive pulmonary disease Social History Social History Smoking packs per day: 1 Smoking cigarettes per day: 20.0 Years smoked: 48 Smoking pack-years: 48.00 Smoking status: Current every day smoker Tobacco type: cigarettes Second hand tobacco smoke exposure: Yes Alcohol intake: former Drinks per week: 1 Substance use: never Gender identity (if verbalized by the patient): Male Sexual Orientation (if Verbalized by the Patient): Straight or Heterosexual Spiritual care concerns: No Exam Const: General: no acute distress and alert Orientation/consciousness: patient oriented x3 Limitations: no limitations HENMT: Head: normal to inspection Ears: external ears normal and TM's normal bilaterally General nose exam: Normal external nose present and Normal nares present Mouth: Yes lip normal and Yes moist mucous membranes Teeth and gingiva: dentition normal Throat: posterior oropharynx normal Eyes: Conjunctivae: conjunctivae normal Pupils: Equal, round and reactive pupils present Neck: Neck: normal visual inspection Chest: Chest palpation & inspection: normal inspection of the chest Resp: Effort & Inspection: labored and uses accessory muscles Auscultation: crackles, rhonchi and wheezes Cardio: Rate: regular rate Rhythm: regular rhythm GI: GI Palp: Yes Soft to palpation and No Tenderness to palpation present (GI) Auscultation: normal bowel sounds : General: Yes bladder normal to palpation and Yes no CVA tenderness Male General Exam: Yes normal external exam Testes: Testes normal Back/Spine/Pelvis: Back: no CVA tenderness Skin: General skin exam: normal color Rashes: no rashes Neuro: General: patient oriented x3, moves all extremities, no meningeal signs, no focal motor deficits and CN's II-XI intact bilaterally Extrem: General: normal to inspection and no pedal edema Psych: Mental Status: mental status grossly normal Affect: normal affect Attitude: cooperative Thought content: Yes Normal thought content present Course Course Emergency Course: Pt was significantly improved and ambulated in the ED. Reevaluation(s) Date: 06/19/21 Time: 18:56 Vital Signs Vital signs: Vital Signs Temperature 36.8 C 06/19/21 18:00 Pulse Rate 110 H 06/19/21 18:00 Respiratory Rate 20 06/19/21 18:00 Blood Press
[2021-06-19 21:37] VITALS: BP 118/96; PULSE 98; RESP 22; TEMP 37.1; O2SAT 90
--- NOTE | 2021-06-19 21:50 | PC.NURSE ---
[facility] EMS service called for transfer back to home residence because patient is requiring oxygen
== END 2021-06-19 22:01 | disposition home or self-care (01) ==
PROVIDERS: Emergency Provider Emergency Medicine; PCP Physician Assistant
DX: J44.9 Chronic obstructive pulmonary disease, unspecified (principal); C34.80 Malignant neoplasm of overlapping sites of unspecified bronchus and lung; Z20.822 Contact with and (suspected) exposure to COVID-19; F17.200 Nicotine dependence, unspecified, uncomplicated
CPT/HCPCS: 36415; 36600; 71250; 80053; 81003; 82805; 84484; 85025; 87804; 93005; 96374; 99283; 99284; A9270; C9803; J2930; U0003; U0005

== ENCOUNTER 2021-06-25 11:28 | Observation (INO) | payer MEDICARE, MEDICAID, SELFPAY ==
[2021-06-25] VITALS (16 sets, daily range): BP systolic 147–167; BP diastolic 82–105; PULSE 83–104; RESP 20–22; TEMP 36.2–36.7; O2SAT 91–98; BMI 25.0
--- NOTE | ~2021-06-25 | CT_ITS ---
EXAMINATION: CTA chest PE protocol DATE: 06/25/2021 13:28 COUNTER SALES REPRESENTATIVE INDICATION: Shortness of breath. Elevated d-dimer. TECHNIQUE: Computed tomographic angiography (CTA) of the chest was performed with 100 mL Omnipaque-35 0 intravenous contrast. The dose-length product was 339.66 mGy-cm. Maximum intensity projection 3D-re constructions of the aorta and other arteries were constructed by the technologist on a separate work station. Automated exposure control and iterative reconstruction technique were employed. COMPARISON: CT dated 06/19/2021. FINDINGS: There is gynecomastia. Heart size is normal. No significant pleural or pericardial effusion . Study is technically limited for evaluation of pulmonary embolism due to timing of contrast bolus. Cannot exclude pulmonary embolism. There is mediastinal lymphadenopathy. In the prevascular space the re is a 1.5 cm lymph node. There is a right upper lobe nodule measuring 1.7 x 1.3 cm, image 44. There is a 1.5 cm right lower lobe nodule, image 95. There is a 3.8 x 3.4 cm cavitary mass of the left low er lobe, image 81. The upper abdomen is grossly unremarkable. There is severe thoracic spondylosis. N o focal lytic or blastic lesions. IMPRESSION: 1. Study technically limited for evaluation of pulmonary embolism. 2: Multiple bilateral pulmonary nodules/masses, largest in the left lower lobe measuring up to 3.8 c m. These nodules/masses are slightly enlarged from prior examination. 3: Mediastinal lymphadenopathy, consistent with metastatic disease. Reviewed, dictated and finalized at location [facility]. TER SALES REPRESENTATIVE IMPRESSION: 1. Study technically limited for evaluation of pulmonary embolism. 2: Multiple bilateral pulmonary nodules/masses, largest in the left lower lobe measuring up to 3.8 cm. These nodules/masses are slightly enlarged from prior examination. 3: Mediastinal lymphadenopathy, consistent with metastatic disease.
--- NOTE | 2021-06-25 11:50 | ECG_ITS ---
Measurements Intervals [place] Rate: 83 P: 99 NC: 161 QRS: 18 QRSD: 78 T: 64 QT: 350 QTc: 413 Interpretive Statements SINUS RHYTHM CANNOT RULE OUT SEPTAL INFARCT, AGE INDETERMINATE BASELINE ARTIFACT- I, II, III, AVR, AVL, AVF, V1-V6 ABNORMAL ECG Electronically Signed On 06-25-2021 18:16:24 [employer] by Cordell Graham D.O.
--- NOTE | 2021-06-25 11:52 | ED.SOB ---
HPI - SOB/Dyspnea General Chief Complaint: Shortness of Breath/Dyspnea Stated Complaint: ambulance Time Seen by Provider: 06/25/21 11:52 Source: patient and EMS Mode of arrival: EMS Limitations: no limitations History of Present Illness HPI Narrative: this is 66-year-old gentleman with a known history of COPD/ asthma history of lung cancer has been out of his albuterol inhaler, and has been short of breath since yesterday increasing short of breath and called EMS. Currently the patient has been vaccinated for COVID and has had his booster. Patient denies any chest pain no fever chills does have a nonproductive cough with audible wheezing with no abdominal pain no flank pain no dysuria. MD elicited complaint: shortness of breath and cough Pertinent past history: COPD, asthma and other ( history of lung cancer) Onset (ago): day(s) Context: other ( out of his medication) Timing: constant Severity: moderate Exacerbating factors: exertion Relieving factors: oxygen and bronchodilators Known history of: COPD and asthma Associated symptoms: cough and wheezing Treatment prior to arrival: oxygen and bronchodilator Related Data Home Medications Medication Instructions Recorded Confirmed enalapril maleate 20 mg PO DAILY 02/15/20 06/25/21 gabapentin 800 mg PO TID 04/23/21 06/25/21 Allergies Allergy/AdvReac Type Severity Reaction Status Date / Time No Known Allergies Allergy Verified 06/25/21 12:20 Review of Systems Review of Systems: All systems reviewed & are unremarkable except as noted in HPI and below PMFSH Past Medical History Medical History COPD (chronic obstructive pulmonary disease) Lung cancer Parkinsons Pleurisy without effusion Family History Family History Mother Chronic obstructive pulmonary disease Father Chronic obstructive pulmonary disease Social History Social History Smoking packs per day: 1 Smoking cigarettes per day: 20.0 Years smoked: 48 Smoking pack-years: 48.00 Smoking status: Current every day smoker Tobacco type: cigarettes Second hand tobacco smoke exposure: Yes Alcohol intake: former Drinks per week: 1 Substance use: never Gender identity (if verbalized by the patient): Male Sexual Orientation (if Verbalized by the Patient): Straight or Heterosexual Spiritual care concerns: No Exam Const: General: no acute distress and alert Orientation/consciousness: patient oriented x3 HENMT: Head: normal to inspection Eyes: Conjunctivae: conjunctivae normal Pupils: Equal, round and reactive pupils present Neck: Neck: normal visual inspection, no lymphadenopathy and no meningeal signs Chest: Chest palpation & inspection: normal inspection of the chest Resp: Effort & Inspection: normal respiratory effort Auscultation: wheezes and diminished lung sounds Cardio: Rate: regular rate Rhythm: regular rhythm GI: GI Palp: Yes Soft to palpation Percussion: Yes normal to percussion : Testes: Testes normal Urinary Catheter: Urinary Catheter: patent and draining, urine clear and urine cloudy Back/Spine/Pelvis: Back: no CVA tenderness and CVA tenderness Skin: General skin exam: normal color Rashes: no rashes Neuro: General: patient oriented x3, moves all extremities, no meningeal signs and no focal motor deficits Extrem: General: normal to inspection and no pedal edema Psych: Mental Status: mental status grossly normal Affect: normal affect and Anxious affect present Attitude: cooperative Course Course Emergency Course: Labs reviewed with patient initially upon presentation his O2 saturations were 87 % patient does have history of COPD and/asthma, has known history of lung cancer, patient received DuoNebs and a dose of IV Solu-Medrol, patient had an elevated D-dimer, and CTA was performed
[2021-06-25] MEDS: IPRATROPIUM 0.5 MG/ALBUTEROL SULFATE 2.5 MG AMPUL.NEB 3 ML INHALATION ×2 (12:10→19:01)
[2021-06-25 12:20] LABS: Base Excess ABG 5.4 mmol/L (0-2); Basophils Absolute Auto 0.02 K/mm3 (0.00-0.10); Basophils Percent Auto 0.3 % (0.0-1.0); Eosinophils Absolute Auto 0.02 K/mm3 (0.02-0.50); Eosinophils Percent Auto 0.3 % (1.0-6.0); HCO3 ABG 31.9 mmol/L (23-29); Hemoglobin 15.9 g/dL (12.4-15.3); Immature Granulocyte Absolute 0.03 K/mm3 (0.00-0.00); Immature Granulocyte Percent A 0.4 % (0.0-0.0); Lymphocytes Percent Auto 20.3 % (18.0-42.0); Mean Corpuscular HGB Conc 33.8 g/dL (32.0-36.0); Mean Corpuscular Hemoglobin 30.9 pg (27.0-31.0); Mean Corpuscular Volume 91.4 fL (78.0-102.0); Mean Platelet Volume 9.1 fl (8.7-11.0); Modified Allen's Test Pass; Monocytes Absolute Auto 0.45 K/mm3 (0.10-0.90); Monocytes Percent Auto 6.5 % (2.0-11.0); Neutrophils Percent Auto 72.2 % (50.0-70.0); Oxygen Saturation ABG 99.1 % (95-97); Oxyhemoglobin 96.7 % (94-100); PCO2 ABG 53.7 mmHg (35-45); PO2 ABG 233.6 mmHg (75-85); Platelet Count Result 180 K/mm3 (150-420); Red Blood Count 5.14 M/mm3 (4.70-6.10); Red Cell Distribution Width 12.8 % (11.6-14.4); Site Drawn RIGHT RADIAL; Total Hemoglobin 15.8 g/dL (12.0-18.0); White Blood Count 6.9 K/mm3 (4.8-10.8); pH ABG 7.39 (7.35-7.45)
[2021-06-25 12:21] LABS: Device NASAL CANNULA
[2021-06-25 12:35] LABS: Partial Thromboplastin Time 24.5 SEC (23.90-30.70); Prothrombin Time 10.3 Seconds (9.50-12.10)
[2021-06-25 12:37] LABS: D Dimer 0.66 mg/L (0.19-0.50)
[2021-06-25 12:40] LABS: Alanine Aminotransferase 22 U/L (16-63); Albumin Level 3.4 g/dL (3.4-5.0); Alkaline Phosphatase 82 U/L (46-116); Anion Gap 5 mmol/L (8-16); Aspartate Amino Transferase 12 U/L (15-37); Bilirubin,Total 1.5 mg/dL (0.00-1.00); Blood Urea Nitrogen 11 mg/dL (7-18); Calcium 8.8 mg/dL (8.5-10.1); Carbon Dioxide 33 mmol/L (21-32); Chloride 98 mmol/L (98-108); Estimated CRCL calculation 94 ml/min; Estimated Glomerular Filt Rate > 60; Glucose 136 mg/dL (70-99); Magnesium 2.1 mg/dL (1.8-2.4); NT Pro B Type Natriuretic Pept 408 pg/mL (0-125); Osmolality Calculated 283 mOsm/kg (285-295); Potassium 4.6 mmol/L (3.5-5.1); Sodium 136 mmol/L (136-145); Total Protein 6.7 g/dL (6.4-8.2); Troponin I 12.6 ng/L (0.00-60.4)
[2021-06-25 13:30] LABS: Add Urine Microscopic? NO; Appearance Urine Clear (Clear); Bilirubin Urine Negative (Negative); Blood Urine Negative (Negative); Color Urine Light Yellow (Yellow); Glucose Urine UA Negative (Negative); Ketones Urine Negative (Negative); Leukocyte Esterase Ur Negative (Negative); Nitrate Urine Negative (Negative); Protein Urine Negative (Negative); pH Urine 7.5 (5.0-8.0)
--- NOTE | 2021-06-25 15:47 | PC.NURSE ---
pt up in doorway of room asking for help, pt reminded he needs to use the call light when getting out of bed and that he needs to keep his oxygen on, pt walks back to bed without assist, 02 put back on, call light in reach
--- NOTE | 2021-06-25 15:48 | ADMGEN ---
This patient, Andrez Owens, was admitted to 2nd Floor Room 202-2. Patient/family oriented to hospital policies and general routines including ID bracelet, bed and alarms, visiting hours, pain management, procedures, bathroom and other care routines, personal items, smoking policy, room service/diet, and visiting hours. Pt asks same question repeatedly. Reoriented. Belongings in bag on chair, wallet in pocket of his jacket Information on how to activate the Rapid Response Team has been discussed. Patient/Family are encouraged to report perceived risks to care and to ask questions if they do not understand what they are told or what they should do.
--- NOTE | 2021-06-25 16:19 | PC.NURSE ---
pt has called multiple times coronary clinical specialist light, pt does not want to stay sitting in bed, will not leave oxygen on, pt reoriented, call light on lap, rails up, alarm on
--- NOTE | 2021-06-25 17:29 | PC.NURSE ---
pt found attempting to pee into trash can at bedside, moved to room 206 for safety, pt resting in bed, pt has extreme hand tremors due to parkinsons, dietary is going to bring him some utensils to assist, given ensure in cup with lid, call light in reach
--- NOTE | 2021-06-25 18:43 | PC.NURSE ---
pt has had multiple anxious complaints, is fixated on when the fnp will be in to see him and if she is going to kick him out tomorrow , he is also worried about how he is going to get home as he has no car and no family who could pick him up, reassured they will help him figure it all out in the morning, call light in reach, rails up x3
--- NOTE | 2021-06-25 18:57 | PC.NURSE ---
RT is in with pt now
[2021-06-25] MEDS: GABAPENTIN 400 MG CAPSULE 800 MG PO (20:20)
[2021-06-25] MEDS: methylPREDNISolone SOD SUCC 40 MG VIAL IV PUSH (20:21)
[2021-06-25] MEDS: ENOXAPARIN 40 MG/0.4 ML SYRINGE SUB-Q (20:21)
--- NOTE | 2021-06-25 20:43 | PC.NURSE ---
pt has multiple anxious complaints, pt repeatedly ask i just need someone to sit in here with me , pt reminded of lack of staff, alarms on, call light in reach
[2021-06-25] MEDS: ENALAPRIL MALEATE 5 MG TABLET 20 MG PO (21:09)
[2021-06-25] MEDS: traZODone HCL 50 MG TABLET PO (21:10)
--- NOTE | 2021-06-25 21:16 | PC.NURSE ---
pt given bp med per cath lab technologist order, pt expresses he is not leaving tomorrow, when asked why pt replies because i dont like it there, i'm not going , rails up, call light in reach, alarm on
--- NOTE | 2021-06-25 22:39 | PC.NURSE ---
pt has developed a more persistent non productive cough, pt has repeatedly taken off oxygen, reoriented as to why he needs it, pt walked to restroom and back to bed, rails up, call light in reach, alarms on
[2021-06-26] MEDS: IPRATROPIUM 0.5 MG/ALBUTEROL SULFATE 2.5 MG AMPUL.NEB 3 ML INHALATION ×2 (00:23→06:16)
[2021-06-26 00:24] VITALS: PULSE 94; RESP 20; O2SAT 92
[2021-06-26 00:31] VITALS: PULSE 95; RESP 20; O2SAT 94
--- NOTE | 2021-06-26 00:51 | PC.NURSE ---
Patient not cooperative with care. Refuses VS. Refuses to use call light. Becomes belligerent when asked to allow staff to assist walking to toilet
--- NOTE | 2021-06-26 00:54 | PC.NURSE ---
Patient refuses to wear oxygen
[2021-06-26] MEDS: methylPREDNISolone SOD SUCC 40 MG VIAL IV PUSH ×2 (04:59→10:02)
[2021-06-26 05:15] LABS: Hematocrit 44.1 % (37.0-46.0); Immature Granulocyte Absolute 0.01 K/mm3 (0.00-0.00); Immature Granulocyte Percent A 0.2 % (0.0-0.0); Lymphocytes Percent Auto 24.9 % (18.0-42.0); Mean Corpuscular Hemoglobin 30.6 pg (27.0-31.0); Mean Platelet Volume 9.3 fl (8.7-11.0); Monocytes Absolute Auto 0.37 K/mm3 (0.10-0.90); Monocytes Percent Auto 8.4 % (2.0-11.0); Neutrophils Absolute Auto 2.9 K/mm3 (1.7-7.2); Neutrophils Percent Auto 66.5 % (50.0-70.0); Platelet Count Result 187 K/mm3 (150-420); Red Cell Distribution Width 12.6 % (11.6-14.4); White Blood Count 4.4 K/mm3 (4.8-10.8)
[2021-06-26 05:26] LABS: Anion Gap 6 mmol/L (8-16); Blood Urea Nitrogen 15 mg/dL (7-18); Calcium 8.7 mg/dL (8.5-10.1); Carbon Dioxide 31 mmol/L (21-32); Chloride 99 mmol/L (98-108); Estimated CRCL calculation 103 ml/min; Estimated Glomerular Filt Rate > 60; Glucose 154 mg/dL (70-99); Osmolality Calculated 285 mOsm/kg (285-295); Potassium 4.4 mmol/L (3.5-5.1); Sodium 136 mmol/L (136-145)
[2021-06-26 08:00] VITALS: BP 154/90; PULSE 84; RESP 20; TEMP 36.6; O2SAT 94
[2021-06-26] MEDS: GABAPENTIN 400 MG CAPSULE 800 MG PO ×2 (10:01→13:34)
[2021-06-26] MEDS: ENALAPRIL MALEATE 5 MG TABLET 20 MG PO (10:01)
[2021-06-26] MEDS: MONTELUKAST SODIUM 10 MG TABLET PO (10:02)
--- NOTE | 2021-06-26 10:58 | PC.NURSE ---
0740 up in room. setting off bed alarm. gait is not steady. up to br and into chair for breakfast. chair alarm in place. no o2 on since nurse came in. spo2 92-93%.
--- NOTE | 2021-06-26 12:11 | PM.SD2 ---
Same Day Admit/Disch: HPI History of Present Illness Chief complaint: ambulance Narrative: Andrez Owens is a 66 year old male that presented to the emergency room with increased shortness of breath Mr. Owens has oxygen at home his saturations have remained 94% on room air he drops down to 93% with ambulation and goes back up once he rest Patient is eating and drinking without any difficulties no shortness of breath noted. Patient states that he has been without his inhalers for a few days he has not had a ride to the pharmacy. [facility] Past Medical History Medical History COPD (chronic obstructive pulmonary disease) Lung cancer Parkinsons Pleurisy without effusion Family History Family History Mother Chronic obstructive pulmonary disease Father Chronic obstructive pulmonary disease Social History Social History Smoking packs per day: 1 Smoking cigarettes per day: 20.0 Years smoked: 48 Smoking pack-years: 48.00 Smoking status: Current every day smoker Tobacco type: cigarettes Second hand tobacco smoke exposure: Yes Alcohol intake: never Drinks per week: 1 Substance use: never Gender identity (if verbalized by the patient): Male Sexual Orientation (if Verbalized by the Patient): Straight or Heterosexual Spiritual care concerns: No Same Day Admit/Disch: Med Pre-admit Medications Home Medications Medication Instructions Recorded Confirmed Type enalapril maleate 20 mg PO DAILY 02/15/20 06/25/21 History gabapentin 800 mg PO TID 04/23/21 06/25/21 History montelukast 10 mg PO DAILY #60 tablet 04/24/21 06/25/21 Rx Mucinex DM 1 tablet PO Q12H #20 tablet 06/03/21 06/25/21 Rx Spiriva with HandiHaler 1 cap INHALATION DAILY #10 inh 06/26/21 Rx albuterol sulfate 2 puff INHALATION QID #8.5 g 06/26/21 Rx budesonide-formoterol [Symbicort] 2 puff INHALATION BID #10.2 g 06/26/21 Rx methylprednisolone [Medrol (Sergio)] See Rx Instructions .ROUTE 06/26/21 Rx .COMPLEX #21 ea methylprednisolone [Medrol (Sergio)] See Rx Instructions .ROUTE 06/26/21 Rx .COMPLEX #21 ea Exam Narrative: GENERAL:Well-appearing, well-nourished, and in no acute distress. HEAD:Normocephalic EYES: PERRLA ENT: Nares clear, CHEST: Clear to scattered wheezes throughout auscultation. No respiratory distress. HEART: Regular rate and rhythm. Normal peripheral pulses. ABDOMEN: Soft, nontender, nondistended, normal active bowel sounds. EXTREMITIES: Decreased range of motion. Trace edema. SKIN: Warm, dry, no rash. NEURO: No focal deficits. Alert and oriented x3. Very anxious DS: Data Data Completed and Pending Labs on day of discharge: Labs from last 24 hours 06/26/21 06/26/21 06/25/21 04:56 04:56 13:24 WBC 4.4 L RBC 4.90 Hgb 15.0 Hct 44.1 MCV 90.0 MCH 30.6 MCHC 34.0 RDW 12.6 Plt Count 187 MPV 9.3 Immature Gran % (Auto) 0.2 H Neut % (Auto) 66.5 Lymph % (Auto) 24.9 [place] % (Auto) 8.4 Eos % (Auto) 0.0 L Baso % (Auto) 0.0 Lymph # (Auto) 1.10 [place] # (Auto) 0.37 Eos # (Auto) 0.00 L Baso # (Auto) 0.00 Abs Immat Gran (auto) 0.01 H Absolute Neuts (auto) 2.9 Absolute Nucleated RBC 0.00 Nucleated RBC % 0.0 PT INR APTT D-Dimer Puncture Site ABG pH ABG pCO2 ABG pO2 ABG PO2/FiO2 Ratio ABG HCO3 ABG O2 Saturation ABG O2 Content ABG Base Excess A-a Gradient Oxyhemoglobin Total Hemoglobin O2 Delivery Device O2 Liters/Min Sodium 136 Potassium 4.4 Chloride 99 Carbon Dioxide 31 Anion Gap 6 L BUN 15 Creatinine 0.56 L Estim Creat Clear Calc 103 Estimated GFR > 60 Glucose 154 H Calculated Osmolality 285 Calcium 8.7 Magnesium Total Bilirubin AST ALT Alkaline Phosphatase
--- NOTE | 2021-06-26 12:23 | PCPTNOTE ---
No Care Plan initiated due to patient being discharged today.
--- NOTE | 2021-06-26 16:15 | PC.NURSE ---
Addendum entered by Audrey Huff RN 06/26/21 17:07: 1235 patient claims he does not need home help because he already has help in house. they come 3 or more times a week to help him. claims he already has home o2 and uses it off and most days. Original Note: 1230 patient aware of discharge. claims he has no way to get. knows no numbers and agrees to pay cab fare. [employer] aware of need for ride home to [facility]. claims they will burr picker somewhere between 1430 and 1500. patient very demanding most of morning. hollers out refuses to use call light. sets off alarms either bed or chair. gait is not steady. uses furniture to walk. no c/o sob. remains 92-94% room air. 1330 still very anxious off and on. showed how to use inhaler. voices understanding. took 2 puffs as ordered. packed inhaler in personal belongings to take home. as I left room and look through glass patient has dug inhaler out and is repeatedly pushing the inhaler. claims he had not taken any doses today. 1450 cab services has not showed at this time. patient very out angry yelling at staff will not sit down. keeps setting alarms off. up and back from br. gait is unsteady. [employer] now claims they will not come til 4. spo2 on ra 93-94%. 1620 [employer] company claims they are on their way. patient and belongings loaded. taken down stairs. hollering and upset that cab is not here. 1650 cab here patient and personal items loaded.
--- NOTE | 2021-07-01 13:29 | PC.NURSE ---
Unable to contact for discharge call back.
== END 2021-06-26 16:50 | disposition home or self-care (01) ==
LOC: CHSED 14:08 → CHS2ND 14:28
PROVIDERS: Nurse Practitioner Family; Admitting Provider Emergency Medicine; Emergency Provider Emergency Medicine; PCP Physician Assistant; Visit Provider Emergency Medicine
DX: J44.1 Chronic obstructive pulmonary disease with (acute) exacerbation (principal); C34.90 Malignant neoplasm of unspecified part of unspecified bronchus or lung; G20 Parkinson's disease; F17.210 Nicotine dependence, cigarettes, uncomplicated; Z99.81 Dependence on supplemental oxygen
CPT/HCPCS: 36415; 36600; 71275; 80048; 80053; 81003; 82805; 83735; 83880; 84484; 85025; 85380; 85610; 85730; 93005; 94640; 96365; 96372; 96375; 96376; 97161; 99285; A9270; G0378; J0696; J1650; J2920; Q9967

== ENCOUNTER 2021-07-03 11:18 | Emergency (ER) | payer MEDICARE, MEDICAID, SELFPAY ==
--- NOTE | ~2021-07-03 | XR_ITS ---
EXAMINATION: XR chest 2V DATE: 07/03/2021 12:55 INDICATION: Midsternal chest pain. Dyspnea. TECHNIQUE: Frontal and lateral views of the chest were obtained. COMPARISON: Chest 2 views 04/23/2021, chest CT 06/25/2021 FINDINGS: There is a cavitary mass in left lower lobe. No pleural effusion or pneumothorax. The heart size is normal. Calcified mediastinal lymph nodes are consistent with old granulomatous disease. The re are old healed right rib fractures. There is chronic height loss of multiple vertebral bodies. The re is severe thoracic and lumbar spondylosis. IMPRESSION: 1. Cavitary mass in left lung lower lobe, consistent with primary bronchogenic carcinoma. Reviewed, dictated and finalized at location A. REL STOCK CHECKER
--- NOTE | 2021-07-03 11:22 | ED.CHESTPAIN ---
HPI - Chest Pain General Chief Complaint: Shortness of Breath/Dyspnea Stated Complaint: ambulance Time Seen by Provider: 07/03/21 11:22 Source: patient, family, EMS and RN notes reviewed Mode of arrival: EMS Limitations: no limitations History of Present Illness complaint: chest pain Onset (ago): hour(s) (2) Timing of current episode: episodic Prior episodes: Yes Onset: during rest and during exertion Pain location: substernal Pain radiation: none Pain scale (0-10): 10 Quality: aching and dull Relieving factors: nothing Exacerbating factors: nothing Associated symptoms: dyspnea Treatment prior to arrival: none Risk Factors Coronary artery disease risk factors: smoking history and hypertension Thoracic aortic dissection risk factors: none Related Data Home Medications Medication Instructions Recorded Confirmed enalapril maleate 20 mg PO DAILY 02/15/20 06/25/21 gabapentin 800 mg PO TID 04/23/21 06/25/21 Allergies Allergy/AdvReac Type Severity Reaction Status Date / Time No Known Allergies Allergy Verified 06/25/21 12:20 Review of Systems Review of Systems: All systems reviewed & are unremarkable except as noted in HPI and below Constitutional: Constitutional: Denies chills and Denies fever(s) PMFSH Past Medical History Medical History COPD (chronic obstructive pulmonary disease) Lung cancer Parkinsons Pleurisy without effusion Family History Family History Mother Chronic obstructive pulmonary disease Father Chronic obstructive pulmonary disease Social History Social History Smoking packs per day: 1 Smoking cigarettes per day: 20.0 Years smoked: 48 Smoking pack-years: 48.00 Smoking status: Current every day smoker Tobacco type: cigarettes Second hand tobacco smoke exposure: Yes Alcohol intake: never Drinks per week: 1 Substance use: never Gender identity (if verbalized by the patient): Male Sexual Orientation (if Verbalized by the Patient): Straight or Heterosexual Spiritual care concerns: No Exam Const: General: no acute distress, alert and ill appearing chronically Nutritional Appearance: well nourished Orientation/consciousness: patient oriented x3 HENMT: Head: normal to inspection Ears: external ears normal Face and sinus: normal facial exam Mouth: Yes moist mucous membranes Eyes: Conjunctivae: conjunctivae normal Pupils: Equal, round and reactive pupils present EOM: EOMs intact bilaterally Neck: Neck: normal visual inspection Resp: Effort & Inspection: not labored, tachypneic and no use of accessory muscles Auscultation: diminished lung sounds diffuse Cardio: Rate: tachycardic Rhythm: regular rhythm GI: GI Palp: Yes Soft to palpation, No Tenderness to palpation present (GI) and No Guarding due to palpation present (GI) Auscultation: normal bowel sounds Back/Spine/Pelvis: Cervical Spine: cervical ROM normal Thoracic/Lumbar Spine: thoraco-lumbar ROM normal Skin: General skin exam: normal color Neuro: General: patient oriented x3, moves all extremities, no meningeal signs, no focal motor deficits and CN's II-XI intact bilaterally Speech: normal speech Gait exam (Neuro): Normal gait present Psych: Appearance: grossly normal and well kempt Mental Status: mental status grossly normal Affect: normal affect Attitude: cooperative Thought content: Yes Normal thought content present Course Course Emergency Course: Patient declined admission to the hospital. He says he wants to go home and he will take medications there. Vital Signs Vital signs: Vital Signs Temperature 36.6 C 07/03/21 11:25 Pulse Rate 110 H 07/03/21 11:25 Respiratory Rate 24 H 07/03/21 11:25 Blood Pressure 138/93 H 07/03/21 11:25 Pulse Oximetry 99 07/03/21 11:25 Temperature 36.7 C 07/03/21 14:40 Pu
--- NOTE | 2021-07-03 11:24 | ECG_ITS ---
Measurements Intervals [place] Rate: 107 P: 49 [place]: 155 QRS: 33 QRSD: 89 T: 73 QT: 333 QTc: 444 Interpretive Statements SINUS TACHYCARDIA VENTRICULAR PREMATURE COMPLEX INCOMPLETE RIGHT BUNDLE BRANCH BLOCK DELAYED PRECORDIAL R/S TRANSITION BORDERLINE ST-T WAVE ABNORMALITY- LAT/HIGH LAT LEADS BASELINE ARTIFACT- I, II, III, AVR, AVL, AVF, V1-V6 ABNORMAL ECG Electronically Signed On 07-03-2021 15:26:09 TRANSFERRER by Cordell Graham D.O.
[2021-07-03 11:25] VITALS: BP 138/93; PULSE 110; RESP 24; TEMP 36.6; O2SAT 99
[2021-07-03 11:52] LABS: Basophils Absolute Auto 0.03 K/mm3 (0.00-0.10); Basophils Percent Auto 0.3 % (0.0-1.0); Eosinophils Absolute Auto 0.01 K/mm3 (0.02-0.50); Eosinophils Percent Auto 0.1 % (1.0-6.0); Hematocrit 50.5 % (37.0-46.0); Hemoglobin 17.3 g/dL (12.4-15.3); Immature Granulocyte Absolute 0.04 K/mm3 (0.00-0.00); Immature Granulocyte Percent A 0.4 % (0.0-0.0); Lymphocytes Absolute Auto 1.63 K/mm3 (1.10-4.50); Lymphocytes Percent Auto 16.6 % (18.0-42.0); Mean Corpuscular HGB Conc 34.3 g/dL (32.0-36.0); Mean Corpuscular Hemoglobin 30.9 pg (27.0-31.0); Mean Corpuscular Volume 90.2 fL (78.0-102.0); Mean Platelet Volume 9.1 fl (8.7-11.0); Monocytes Absolute Auto 0.78 K/mm3 (0.10-0.90); Neutrophils Absolute Auto 7.3 K/mm3 (1.7-7.2); Neutrophils Percent Auto 74.6 % (50.0-70.0); Platelet Count Result 234 K/mm3 (150-420); Red Cell Distribution Width 12.4 % (11.6-14.4); White Blood Count 9.8 K/mm3 (4.8-10.8)
[2021-07-03 12:00] VITALS: BP 119/82; PULSE 100; RESP 22; O2SAT 95
[2021-07-03 12:18] LABS: Alanine Aminotransferase 22 U/L (16-63); Albumin Level 3.4 g/dL (3.4-5.0); Alkaline Phosphatase 86 U/L (46-116); Anion Gap 10 mmol/L (8-16); Aspartate Amino Transferase < 10 U/L (15-37); Blood Urea Nitrogen 12 mg/dL (7-18); CRP < 0.5 mg/dL (0.0-0.9); Calcium 8.8 mg/dL (8.5-10.1); Carbon Dioxide 29 mmol/L (21-32); Chloride 96 mmol/L (98-108); Estimated CRCL calculation 65 ml/min; Estimated Glomerular Filt Rate > 60; Glucose 142 mg/dL (70-99); NT Pro B Type Natriuretic Pept 852 pg/mL (0-125); Osmolality Calculated 281 mOsm/kg (285-295); Potassium 4.1 mmol/L (3.5-5.1); Sodium 135 mmol/L (136-145); Total Protein 6.8 g/dL (6.4-8.2); Troponin I 11.8 ng/L (0.00-60.4)
[2021-07-03 12:26] LABS: Influenza A QL RT-PCR Negative (Negative); Influenza B QL RT-PCR Negative (Negative); SARS-CoV-2 RNA PCR Negative (Negative)
[2021-07-03] MEDS: methylPREDNISolone SOD SUCC 125 MG VIAL IV PUSH (13:01)
[2021-07-03] MEDS: IPRATROPIUM 0.5 MG/ALBUTEROL SULFATE 2.5 MG AMPUL.NEB 3 ML INHALATION (13:01)
--- NOTE | 2021-07-03 13:03 | PC.NURSE ---
[facility] states they will be here around 2:30 or 3 to given pt a ride home.
[2021-07-03] MEDS: DOXYCYCLINE HYCLATE 100 MG TABLET PO (13:10)
[2021-07-03 13:13] VITALS: BP 129/94; PULSE 100; RESP 20; O2SAT 97
[2021-07-03 14:40] VITALS: BP 166/88; PULSE 89; RESP 18; TEMP 36.7; O2SAT 96
== END 2021-07-03 14:45 | disposition home or self-care (01) ==
PROVIDERS: Emergency Provider Emergency Medicine; PCP Physician Assistant
DX: J44.1 Chronic obstructive pulmonary disease with (acute) exacerbation (principal); F17.200 Nicotine dependence, unspecified, uncomplicated; Z85.118 Personal history of other malignant neoplasm of bronchus and lung
CPT/HCPCS: 36415; 71046; 80053; 83880; 84484; 85025; 86140; 87502; 93005; 94640; 96374; 99284; A9270; C9803; J2930; U0003; U0005

== ENCOUNTER 2021-07-10 21:06 | Observation (INO) | payer MEDICARE, MEDICAID, SELFPAY ==
--- NOTE | ~2021-07-10 | CT_ITS ---
EXAMINATION: CT brain wo con EXAM DATE: 07/10/2021 21:51 INDICATION: altered mental status TECHNIQUE: Spiral CT of the head was performed without contrast. Axial, coronal and sagittal images were reviewed. The dose-length product (DLP) for this examination was 605.33 mGy-cm. The exposure w as tailored according to patient size, and iterative reconstruction (ASIR) was used as additional dos e reduction technique. Comparison is made to prior examination from 03/11/2021. FINDINGS: There is no acute intraparenchymal hemorrhage. No evidence of intraparenchymal brain mass lesion. No evidence of acute infarction. Please note that initial head CT has limited sensitivity f or small or acute infarctions. There is moderate periventricular and subcortical hypodensity, nonspec ific but probably related to small vessel ischemic disease. There is prominence of the sulci and ve ntricles related to cerebral atrophy. There is intracranial carotid arteriosclerosis. There are no extra-axial collections. There is no mass effect or midline shift. Patient has had bilateral ocula r lens surgery. Soft tissue is unremarkable. Moderate amount of bilateral maxillary sinus mucoperio steal thickening. IMPRESSION: 1. No acute intracranial findings. 2. Chronic age related findings. Reviewed, dictated and finalized at location A. ENTARY ESL TEACHER
--- NOTE | ~2021-07-10 | XR_ITS ---
EXAMINATION: XR chest 1V portable EXAM DATE: 07/10/2021 21:51 INDICATION: Shortness of breath. TECHNIQUE: Portable AP frontal chest x-ray was obtained. Comparison is made to prior examination from 07/03/2021. FINDINGS: There is left infrahilar cavitary mass measuring about 4 cm with air-fluid level, appearanc e unchanged compared to most recent prior study. Smaller right lower lobe pulmonary nodule seen on re cent CT scan is less well visualized. No pneumothorax or pleural effusion. Cardiomediastinal silhouet te is normal. Old right rib fractures. IMPRESSION: Left infrahilar cavitary mass, right lower lobe smaller nodule less well visualized. Reviewed, dictated and finalized at location A. ADER
--- NOTE | 2021-07-10 21:13 | ED.SOB ---
HPI - SOB/Dyspnea General Chief Complaint: Shortness of Breath/Dyspnea Stated Complaint: amb Time Seen by Provider: 07/10/21 21:13 Source: patient and EMS Mode of arrival: ambulatory History of Present Illness HPI Narrative: 66-year-old male, smoker 1 pack a day for 48 years, parkinsonism, lung cancer ( type of treatment received is not known), pulmonary nodules, chronic left lower lobe cavity, COPD on home oxygen 3 liters/minute, pleurisy, hyponatremia, hypertension, has had multiple ER visits in the past 1 month for COPD exacerbation. Last time he was here was on 07/03/2021 when he received prednisone and doxycycline for COPD exacerbation. The patient was admitted on 07/05 for COPD exacerbation. The patient presents today with -- worsening shortness of breath for the past 2 days. He was noted to have a pulse ox of 90% on room air following which she was placed on supplemental oxygen. -- Cough with mucoid sputum. -- Altered mental status according to EMS. The patient is confused but does not have any focal neuro deficits. -- He complained of chest pain to the nurse but denied chest pain when I asked him. The patient denied any chest pain. No fever. No leg swelling. he has had multiple negative COVID tests and claims that he received COVID vaccination. MD elicited complaint: shortness of breath and cough Pertinent past history: COPD Onset (ago): day(s) ( Two days) Severity: moderate Exacerbating factors: exertion Relieving factors: oxygen and rest Known history of: COPD Associated symptoms: chest pain Treatment prior to arrival: oxygen and other ( DuoNeb inhalation) Related Data Home oxygen amount: 3 liters Home Medications Medication Instructions Recorded Confirmed enalapril maleate 20 mg PO DAILY 02/15/20 06/25/21 gabapentin 800 mg PO TID 04/23/21 06/25/21 Allergies Allergy/AdvReac Type Severity Reaction Status Date / Time No Known Allergies Allergy Verified 06/25/21 12:20 Review of Systems Review of Systems: All systems reviewed & are unremarkable except as noted in HPI and below Constitutional: Constitutional: Reports as per HPI and Reports no additional constitutional complaints Eyes: Eyes: Reports as per HPI and Reports no additional eye complaints ENT: Reports system reviewed and no additional complaints, except as documented Cardiovascular: Cardiovascular: Reports as per HPI and Reports no additional cardiovascular complaints Respiratory: Respiratory: Reports as per HPI, Reports no additional respiratory complaints, Reports chest congestion, Reports cough, Reports dyspnea and Reports wheezing Gastrointestinal: Gastrointestinal: Reports as per HPI and Reports no additional gastrointestinal complaints Genitourinary: Genitourinary: Reports no additional male genitourinary complaints Musculoskeletal: Musculoskeletal: Reports no additional musculoskeletal complaints Integumentary/Breasts: Skin/Breast: Reports system reviewed and no additional complaints, except as docu Neurologic: Reports system reviewed and no additional complaints, except as documented and Reports confusion Psychiatric: Psychiatric: Reports no additional psychiatric complaints Endocrine: Endocrine: Reports no additional endocrine complaints Hematologic/Lymphatic: Hematologic/Lymphatic: Reports no additional hematologic/lymphatic complaints Allergic/Immunologic: Allergic/Immunologic: Reports no additional allergic/immunologic complaints PMFSH Past Medical History Medical History COPD (chronic obstructive pulmonary disease) Lung cancer Parkinsons Pleurisy without effusion Family History Family History Mother Chronic obstructive pulmonary disease Father Chronic obstructive pulmonary disease Social History Social History Smoking packs per day: 1 Smok
--- NOTE | 2021-07-10 21:18 | ECG_ITS ---
Measurements Intervals [place] Rate: 76 P: 40 CO: 173 QRS: 0 QRSD: 101 T: 73 QT: 368 QTc: 416 Interpretive Statements SINUS RHYTHM INCOMPLETE RIGHT BUNDLE BRANCH BLOCK BORDERLINE ST-T WAVE ABNORMALITY- HIGH LATERAL LEADS BASELINE ARTIFACT- II, III, AVF, V1-V3 BORDERLINE ECG Electronically Signed On 07-11-2021 8:04:24 NAIL GALVANIZER by Cordell Graham D.O.
[2021-07-10 21:33] VITALS: BP 140/112; PULSE 92; RESP 20; TEMP 36.6; O2SAT 100
[2021-07-10 21:41] VITALS: O2SAT 100
[2021-07-10] MEDS: IPRATROPIUM 0.5 MG/ALBUTEROL SULFATE 2.5 MG AMPUL.NEB 3 ML INHALATION (22:00)
[2021-07-10 22:02] VITALS: PULSE 99; RESP 20; O2SAT 95
[2021-07-10 22:02] LABS: Basophils Absolute Auto 0.02 K/mm3 (0.00-0.10); Basophils Percent Auto 0.2 % (0.0-1.0); Eosinophils Absolute Auto 0.02 K/mm3 (0.02-0.50); Eosinophils Percent Auto 0.2 % (1.0-6.0); Hemoglobin 14.9 g/dL (12.4-15.3); Immature Granulocyte Absolute 0.07 K/mm3 (0.00-0.00); Immature Granulocyte Percent A 0.6 % (0.0-0.0); Lymphocytes Absolute Auto 2.12 K/mm3 (1.10-4.50); Lymphocytes Percent Auto 18.7 % (18.0-42.0); Mean Corpuscular HGB Conc 33.9 g/dL (32.0-36.0); Mean Corpuscular Hemoglobin 30.7 pg (27.0-31.0); Mean Corpuscular Volume 90.5 fL (78.0-102.0); Mean Platelet Volume 8.6 fl (8.7-11.0); Monocytes Absolute Auto 0.81 K/mm3 (0.10-0.90); Monocytes Percent Auto 7.1 % (2.0-11.0); Neutrophils Absolute Auto 8.3 K/mm3 (1.7-7.2); Neutrophils Percent Auto 73.2 % (50.0-70.0); Platelet Count Result 218 K/mm3 (150-420); Red Blood Count 4.86 M/mm3 (4.70-6.10); Red Cell Distribution Width 13.2 % (11.6-14.4); White Blood Count 11.3 K/mm3 (4.8-10.8)
[2021-07-10 22:03] VITALS: PULSE 99; RESP 20; O2SAT 95
[2021-07-10] MEDS: methylPREDNISolone SOD SUCC 125 MG VIAL IV PUSH (22:14)
[2021-07-10 22:23] LABS: Partial Thromboplastin Time 25.9 SEC (23.90-30.70); Prothrombin Time 10.3 Seconds (9.50-12.10)
[2021-07-10 22:25] LABS: D Dimer 1.11 mg/L (0.19-0.50)
[2021-07-10 22:27] LABS: Alanine Aminotransferase 18 U/L (16-63); Albumin Level 3.4 g/dL (3.4-5.0); Alkaline Phosphatase 88 U/L (46-116); Anion Gap 8 mmol/L (8-16); Aspartate Amino Transferase 13 U/L (15-37); Bilirubin,Total 0.9 mg/dL (0.00-1.00); Blood Urea Nitrogen 18 mg/dL (7-18); Calcium 8.9 mg/dL (8.5-10.1); Carbon Dioxide 27 mmol/L (21-32); Chloride 93 mmol/L (98-108); Estimated CRCL calculation 76 ml/min; Estimated Glomerular Filt Rate > 60; Glucose 124 mg/dL (70-99); NT Pro B Type Natriuretic Pept 706 pg/mL (0-125); Osmolality Calculated 268 mOsm/kg (285-295); Sodium 128 mmol/L (136-145); Total Protein 6.7 g/dL (6.4-8.2)
[2021-07-10 22:30] LABS: Lipase 65 U/L (73-393); SARS-CoV-2 Ag Negative (Negative)
[2021-07-10 22:43] LABS: Base Excess ABG 0.8 mmol/L (0-2); HCO3 ABG 24.5 mmol/L (23-29); Oxygen Content ABG 20.2 %vol (16.0-22.0); Oxygen Saturation ABG 96.3 % (95-97); Oxyhemoglobin 94.3 % (94-100); PCO2 ABG 36.5 mmHg (35-45); PO2 ABG 86.9 mmHg (75-85); Total Hemoglobin 15.2 g/dL (12.0-18.0); pH ABG 7.44 (7.35-7.45)
[2021-07-10 22:49] LABS: Device NASAL CANNULA; Modified Allen's Test Pass; Site Drawn RIGHT RADIAL
[2021-07-10] MEDS: SODIUM CHLORIDE 0.9% IV 500 ML IV CONT (23:23)
[2021-07-11] VITALS: BP 139/105; PULSE 87; PULSE 90; RESP 18; TEMP 36.4; O2SAT 98
[2021-07-11 00:02] VITALS: PULSE 90; RESP 18; O2SAT 98
--- NOTE | 2021-07-11 00:15 | PC.NURSE ---
pt initially stated that he was SOB and having chest pain. pt denied chest pain when he spoke to MD Bowen. pt currently denies chest pain.
[2021-07-11 00:26] VITALS: BP 134/107; PULSE 98; RESP 17; TEMP 36.6; O2SAT 98
--- NOTE | 2021-07-11 00:30 | PC.NURSE ---
Per Celia FURNACE PROCESS SUPERVISOR asked ER if any medications were being prescribed for elevated BP. Only med ordered is AM BP medicine
[2021-07-11 00:51] VITALS: BMI 24.9
--- NOTE | 2021-07-11 02:07 | ADMGEN ---
This patient, Andrez Owens, was admitted to 2nd Floor Room 207-1. Patient/family oriented to hospital policies and general routines including ID bracelet, bed and alarms, pain management, procedures, bathroom and other care routines, personal items, smoking policy, room service/diet, and visiting hours. Information on how to activate the Rapid Response Team has been discussed. Patient/Family are encouraged to report perceived risks to care and to ask questions if they do not understand what they are told or what they should do.
[2021-07-11 04:00] VITALS: BP 136/96; PULSE 78; PULSE 85; RESP 20; TEMP 37.2; O2SAT 95
[2021-07-11] MEDS: BUDESONIDE/FORMOTEROL (*SP) 160-4.5 MCG 6 GM INH 2 PUFF INHALATION (06:35)
[2021-07-11] MEDS: methylPREDNISolone SOD SUCC 40 MG VIAL IV PUSH (06:36)
[2021-07-11 08:00] VITALS: BP 123/91; PULSE 80; PULSE 86; PULSE 88; RESP 18; TEMP 35.8; O2SAT 96
--- NOTE | 2021-07-11 09:05 | PM.SD2 ---
Same Day Admit/Disch: HPI History of Present Illness Chief complaint: AMS HYPONATREMIA COPD EXACERBATION Narrative: Per Emergency room noted Andrez Owens is a 66 year old male smoker 1 pack a day for 48 years, parkinsonism, lung cancer ( type of treatment received is not known), pulmonary nodules, chronic left lower lobe cavity, COPD on home oxygen 3 liters/minute, pleurisy, hyponatremia, hypertension, has had multiple ER visits in the past 1 month for COPD exacerbation. Last time he was here was on 07/03/2021 when he received prednisone and doxycycline for COPD exacerbation. The patient was admitted on 07/05 for COPD exacerbation. The patient presents today with -- worsening shortness of breath for the past 2 days. He was noted to have a pulse ox of 90% on room air following which she was placed on supplemental oxygen. Patient has oxygen of 3 L at home per nasal cannula. [facility] Past Medical History Medical History COPD (chronic obstructive pulmonary disease) Lung cancer Parkinsons Pleurisy without effusion Family History Family History Mother Chronic obstructive pulmonary disease Father Chronic obstructive pulmonary disease Social History Social History Smoking packs per day: 0.5 Smoking cigarettes per day: 10.0 Years smoked: 49 Smoking pack-years: 24.50 Smoking status: Current every day smoker Tobacco type: cigarettes Second hand tobacco smoke exposure: Yes Alcohol intake: former Drinks per week: 1 Substance use: never Substance use type: does not use Gender identity (if verbalized by the patient): Male Sexual Orientation (if Verbalized by the Patient): Straight or Heterosexual Spiritual care concerns: No Same Day Admit/Disch: Med Pre-admit Medications Home Medications Medication Instructions Recorded Confirmed Type enalapril maleate 20 mg PO DAILY 02/15/20 07/10/21 History gabapentin 800 mg PO TID 04/23/21 07/10/21 History montelukast 10 mg PO DAILY #60 tablet 04/24/21 07/10/21 Rx Spiriva with HandiHaler 1 cap INHALATION DAILY #10 inh 06/26/21 07/10/21 Rx albuterol sulfate 2 puff INHALATION QID #8.5 g 06/26/21 07/10/21 Rx budesonide-formoterol [Symbicort] 2 puff INHALATION BID #10.2 g 06/26/21 07/10/21 Rx methylprednisolone [Medrol (Sergio)] See Rx Instructions .ROUTE 07/11/21 Rx .COMPLEX #21 ea Exam Narrative: GENERAL:Well-appearing, disheveled and in no acute distress. HEAD:Normocephalic, atraumatic. EYES: PERRLA and EOMI. ENT: Nares clear, no rhinorrhea or epistaxis. Mucous membranes moist. NECK: Supple. CHEST:Auscultation course with some wheezing noted scattered diminished in lower lobes . No respiratory distress. HEART: Regular rate and rhythm. decreased peripheral pulses. ABDOMEN: Soft, nontender, nondistended, normal active bowel sounds. EXTREMITIES: Normal range of motion. trace edema. SKIN: Warm, dry, no rash. NEURO: No focal deficits. Alert and oriented x3. DS: Data Data Completed and Pending Labs on day of discharge: Labs from last 24 hours 07/10/21 07/10/21 07/10/21 21:56 21:56 21:56 WBC RBC Hgb Hct MCV MCH MCHC RDW Plt Count MPV Immature Gran % (Auto) Neut % (Auto) Lymph % (Auto) Murray % (Auto) Eos % (Auto) Baso % (Auto) Lymph # (Auto) Murray # (Auto) Eos # (Auto) Baso # (Auto) Abs Immat Gran (auto) Absolute Neuts (auto) Absolute Nucleated RBC Nucleated RBC % PT 10.3 INR 1.0 APTT 25.9 D-Dimer 1.11 H* Puncture Site ABG pH ABG pCO2 ABG pO2 ABG PO2/FiO2 Ratio ABG HCO3 ABG O2 Saturation ABG O2 Content ABG Base Excess A-a Gradient Oxyhemoglobin Total Hemoglobin O2 Delivery Device O2 Liters/Min Sodium Potassium Chloride Car
[2021-07-11] MEDS: GABAPENTIN 400 MG CAPSULE 800 MG PO (09:09)
[2021-07-11] MEDS: ALBUTEROL SULFATE (*SP) INHALER 2 PUFF INHALATION (09:12)
[2021-07-11] MEDS: lisinopriL 20 MG TABLET PO (09:15)
[2021-07-11] MEDS: MONTELUKAST SODIUM 10 MG TABLET PO (09:15)
[2021-07-11 09:21] LABS: Hemoglobin 15.1 g/dL (12.4-15.3); Mean Corpuscular HGB Conc 34.3 g/dL (32.0-36.0); Mean Corpuscular Hemoglobin 30.9 pg (27.0-31.0); Mean Platelet Volume 8.6 fl (8.7-11.0); Platelet Count Result 203 K/mm3 (150-420); Red Blood Count 4.89 M/mm3 (4.70-6.10); Red Cell Distribution Width 13.1 % (11.6-14.4); White Blood Count 2.4 K/mm3 (4.8-10.8)
[2021-07-11] MEDS: UMECLIDINIUM BROMIDE 62.5 MCG ELLIPTA 1 PUFF INHALATION (09:21)
[2021-07-11 09:39] LABS: Anion Gap 7 mmol/L (8-16); Blood Urea Nitrogen 16 mg/dL (7-18); Calcium 8.5 mg/dL (8.5-10.1); Carbon Dioxide 28 mmol/L (21-32); Chloride 96 mmol/L (98-108); Estimated CRCL calculation 71 ml/min; Estimated Glomerular Filt Rate > 60; Glucose 277 mg/dL (70-99); Osmolality Calculated 283 mOsm/kg (285-295); Potassium 4.6 mmol/L (3.5-5.1); Sodium 131 mmol/L (136-145)
--- NOTE | 2021-07-11 10:53 | PC.NURSE ---
Pt discharged to home with VSS. Pt discharge instructions reviewed. RN did instruct pt regarding current medications and additional medication, Medrol dose pac, doseage , time, and SE. Pt verbalized understanding. Pt discharged on 3L/NC of O2. He has oxygen at home. all discharge instructions sent with pt.
[2021-07-11 11:00] VITALS: O2SAT 98
--- NOTE | 2021-07-13 11:49 | PC.NURSE ---
Unable to contact for discharge call back.
== END 2021-07-11 10:45 | disposition home or self-care (01) ==
LOC: CHSED 23:58 → CHS2ND 07-11 07:11
PROVIDERS: Nurse Practitioner Family; Admitting Provider Internal Medicine; Emergency Provider Internal Medicine Critical Care Medicine; PCP Physician Assistant; Visit Provider Internal Medicine
DX: E87.1 Hypo-osmolality and hyponatremia (principal); J44.1 Chronic obstructive pulmonary disease with (acute) exacerbation; R41.82 Altered mental status, unspecified; R79.1 Abnormal coagulation profile; C34.90 Malignant neoplasm of unspecified part of unspecified bronchus or lung; G20 Parkinson's disease; F17.210 Nicotine dependence, cigarettes, uncomplicated; Z20.822 Contact with and (suspected) exposure to COVID-19; Z99.81 Dependence on supplemental oxygen
CPT/HCPCS: 36415; 36600; 70450; 71045; 80048; 80053; 82805; 83690; 83880; 84484; 85025; 85027; 85380; 85610; 85730; 87426; 93005; 94640; 96361; 96374; 96376; 99285; A9270; C9803; G0378; J2920; J2930; J7040

== ENCOUNTER 2021-07-18 17:51 | Observation (INO) | payer MEDICARE, MEDICAID, SELFPAY ==
[2021-07-18] VITALS (9 sets, daily range): BP systolic 136–153; BP diastolic 98–109; PULSE 85–106; RESP 16–20; TEMP 36.4–37; O2SAT 95–98; BMI 25.4
--- NOTE | ~2021-07-18 | XR_ITS ---
XR chest 1V portable DATE: 07/18/2021 18:27 INDICATION: Shortness of breath, Central chest pain for 2 to 3 days TECHNIQUE: Portable AP chest on July 18, 2021 1827 hours COMPARISON: June 25, 2021 CT pulmonary scan FINDINGS: There is an approximately 3.4 x 3.9 cm left lower lobe mass density corresponding to a thic k-walled cavitary lesion at this location on June 25, 2021 CT examination of the chest. Approximately 1.4 cm right basilar lower lobe mass. Mild right hilar prominence consistent with right hilar mass and/or adenopathy No pulmonary infiltrate or consolidation, pleural effusion, pulmonary vascular congestion or pneumoth orax. Normal heart size. Diffuse osteopenia. IMPRESSION: Bilateral lung masses, the largest a cavitary 3.4 x 3.9 cm left lower lobe mass Right hilar mass and/or lymphadenopathy Reviewed, dictated and finalized at location A. MACHINE SUPERVISOR IMPRESSION: Bilateral lung masses, the largest a cavitary 3.4 x 3.9 cm left low er lobe mass Right hilar mass and/or lymphadenopathy
--- NOTE | 2021-07-18 18:19 | ED.SOB ---
HPI - SOB/Dyspnea General Source: patient <Josh Mina MD - Last Filed: 07/18/21 19:54> Mode of arrival: ambulatory <Josh Mina MD - Last Filed: 07/18/21 19:54> Limitations: no limitations <Josh Mina MD - Last Filed: 07/18/21 19:54> History of Present Illness HPI Narrative: this is a 66-year-old gentleman with history of COPD recently discharged from our facility approximately 1 week ago presents with a 1 day history of increased shortness of breath of breath with cough is nonproductive with no chest pain no fever chills no nausea vomiting no abdominal pain no flank pain no dysuria. Patient continues to smoke has a history of COPD. Patient has a nebulizer at home but was not successful in using it he said that he used a bit of weight but not much. <Josh Mina MD - Last Filed: 07/18/21 19:54> MD elicited complaint: shortness of breath and cough <Josh Mina MD - Last Filed: 07/18/21 19:54> Pertinent past history: COPD <Josh Mina MD - Last Filed: 07/18/21 19:54> Onset (ago): hour(s) <Josh Mina MD - Last Filed: 07/18/21 19:54> Context: medication noncompliance and anxiety <Josh Mina MD - Last Filed: 07/18/21 19:54> Timing: constant <Josh Mina MD - Last Filed: 07/18/21 19:54> Severity: moderate <Josh Mina MD - Last Filed: 07/18/21 19:54> Exacerbating factors: movement and coughing <Josh Mina MD - Last Filed: 07/18/21 19:54> Relieving factors: oxygen <Josh Mina MD - Last Filed: 07/18/21 19:54> Known history of: COPD <Josh Mina MD - Last Filed: 07/18/21 19:54> Related Data Home Medications: Home Medications Medication Instructions Recorded Confirmed enalapril maleate 20 mg PO DAILY 02/15/20 07/18/21 gabapentin 800 mg PO TID 04/23/21 07/18/21 <Josh Mina MD - Last Filed: 07/18/21 19:54> Allergies/Adverse Reactions: Allergies Allergy/AdvReac Type Severity Reaction Status Date / Time No Known Allergies Allergy Verified 07/18/21 18:40 <Josh Mina MD - Last Filed: 07/18/21 19:54> Review of Systems Review of Systems: All systems reviewed & are unremarkable except as noted in HPI and below <Josh Mina MD - Last Filed: 07/18/21 19:54> [facility] Past Medical History Medical History: Medical History COPD (chronic obstructive pulmonary disease) Lung cancer Parkinsons Pleurisy without effusion <Josh Mina MD - Last Filed: 07/18/21 19:54> Family History Family History: Family History Mother Chronic obstructive pulmonary disease Father Chronic obstructive pulmonary disease <Josh Mina MD - Last Filed: 07/18/21 19:54> Social History Social History: Social History Smoking packs per day: 1.5 Smoking cigarettes per day: 30.0 Years smoked: 40 Smoking pack-years: 60.00 Smoking status: Current every day smoker Tobacco type: cigarettes Second hand tobacco smoke exposure: Yes Alcohol intake: former Drinks per week: 1 Substance use: unknown Substance use type: does not use Gender identity (if verbalized by the patient): Male Sexual Orientation (if Verbalized by the Patient): Straight or Heterosexual Spiritual care concerns: No <Josh Mina MD - Last Filed: 07/18/21 19:54> Exam Const: General: no acute distress <Josh Mina MD - Last Filed: 07/18/21 19:54> Orientation/consciousness: patient oriented x3 <Josh Mina MD - Last Filed: 07/18/21 19:54> HENMT: Head: normal to inspection and contusion <Josh Mina MD - Last Filed: 07/18/21 19:54> Eyes: Conjunctivae: conjunctivae normal <Josh Mina MD - Last Filed: 07/18/21 19:54> Alicia
[2021-07-18] MEDS: IPRATROPIUM 0.5 MG/ALBUTEROL SULFATE 2.5 MG AMPUL.NEB 3 ML INHALATION ×2 (18:26→23:36)
[2021-07-18] MEDS: methylPREDNISolone SOD SUCC 125 MG VIAL IV PUSH (18:40)
[2021-07-18 19:01] LABS: Base Excess ABG 0.2 mmol/L (0-2); HCO3 ABG 23.3 mmol/L (23-29); Oxygen Content ABG 19.9 %vol (16.0-22.0); Oxygen Saturation ABG 96.5 % (95-97); PCO2 ABG 33.6 mmHg (35-45); PO2 ABG 84.6 mmHg (75-85); pH ABG 7.46 (7.35-7.45)
[2021-07-18 19:02] LABS: Basophils Absolute Auto 0.02 K/mm3 (0.00-0.10); Basophils Percent Auto 0.2 % (0.0-1.0); Device ROOM AIR; Eosinophils Absolute Auto 0.02 K/mm3 (0.02-0.50); Eosinophils Percent Auto 0.2 % (1.0-6.0); Hematocrit 42.4 % (37.0-46.0); Hemoglobin 14.6 g/dL (12.4-15.3); Immature Granulocyte Absolute 0.05 K/mm3 (0.00-0.00); Immature Granulocyte Percent A 0.4 % (0.0-0.0); Lymphocytes Absolute Auto 2.59 K/mm3 (1.10-4.50); Lymphocytes Percent Auto 21.6 % (18.0-42.0); Mean Corpuscular HGB Conc 34.4 g/dL (32.0-36.0); Mean Platelet Volume 8.7 fl (8.7-11.0); Modified Allen's Test Pass; Monocytes Absolute Auto 0.88 K/mm3 (0.10-0.90); Monocytes Percent Auto 7.3 % (2.0-11.0); Neutrophils Absolute Auto 8.5 K/mm3 (1.7-7.2); Neutrophils Percent Auto 70.3 % (50.0-70.0); Platelet Count Result 223 K/mm3 (150-420); Red Blood Count 4.71 M/mm3 (4.70-6.10); Red Cell Distribution Width 13.2 % (11.6-14.4); Site Drawn LEFT RADIAL
[2021-07-18 19:16] LABS: Partial Thromboplastin Time 26.2 SEC (23.90-30.70)
[2021-07-18 19:23] LABS: Alanine Aminotransferase 24 U/L (16-63); Albumin Level 3.4 g/dL (3.4-5.0); Alkaline Phosphatase 105 U/L (46-116); Anion Gap 11 mmol/L (8-16); Aspartate Amino Transferase 12 U/L (15-37); Bilirubin,Total 1.1 mg/dL (0.00-1.00); Blood Urea Nitrogen 12 mg/dL (7-18); Calcium 8.7 mg/dL (8.5-10.1); Carbon Dioxide 27 mmol/L (21-32); Chloride 92 mmol/L (98-108); Estimated CRCL calculation 77 ml/min; Estimated Glomerular Filt Rate > 60; Glucose 102 mg/dL (70-99); Magnesium 2.1 mg/dL (1.8-2.4); NT Pro B Type Natriuretic Pept 291 pg/mL (0-125); Osmolality Calculated 269 mOsm/kg (285-295); Potassium 4.2 mmol/L (3.5-5.1); Sodium 130 mmol/L (136-145); Total Protein 6.2 g/dL (6.4-8.2)
--- NOTE | 2021-07-18 20:43 | PC.NURSE ---
patient to be admitted as observation into room 207
[2021-07-18] MEDS: SODIUM CHLORIDE 0.9% IV 1,000 ML 75 ML IV CONT (21:36)
[2021-07-18] MEDS: methylPREDNISolone SOD SUCC 40 MG VIAL 80 MG IV PUSH (21:55)
--- NOTE | 2021-07-18 22:13 | ADMGEN ---
This patient, Andrez Owens, was admitted to 2nd Floor Room 207-2. Patient/family oriented to hospital policies and general routines including ID bracelet, bed and alarms, visiting hours, pain management, procedures, bathroom and other care routines, personal items, smoking policy, room service/diet, and visiting hours. Information on how to activate the Rapid Response Team has been discussed. Patient/Family are encouraged to report perceived risks to care and to ask questions if they do not understand what they are told or what they should do.
[2021-07-19] VITALS: BP 150/92; PULSE 74; RESP 14; TEMP 36.4; O2SAT 97
[2021-07-19] MEDS: methylPREDNISolone SOD SUCC 40 MG VIAL 80 MG IV PUSH ×2 (01:53→08:51)
[2021-07-19 05:34] VITALS: PULSE 87; RESP 16; O2SAT 96
[2021-07-19] MEDS: IPRATROPIUM 0.5 MG/ALBUTEROL SULFATE 2.5 MG AMPUL.NEB 3 ML INHALATION ×2 (05:34→12:41)
[2021-07-19 08:00] VITALS: BP 138/7; PULSE 68; RESP 20; TEMP 36.8; O2SAT 99
[2021-07-19 08:23] LABS: Hematocrit 43.6 % (37.0-46.0); Mean Corpuscular HGB Conc 34.4 g/dL (32.0-36.0); Mean Corpuscular Hemoglobin 30.9 pg (27.0-31.0); Mean Corpuscular Volume 89.7 fL (78.0-102.0); Mean Platelet Volume 8.9 fl (8.7-11.0); Platelet Count Result 229 K/mm3 (150-420); Red Blood Count 4.86 M/mm3 (4.70-6.10); Red Cell Distribution Width 13.2 % (11.6-14.4)
[2021-07-19 08:36] LABS: Alanine Aminotransferase 24 U/L (16-63); Albumin Level 3.2 g/dL (3.4-5.0); Alkaline Phosphatase 109 U/L (46-116); Anion Gap 7 mmol/L (8-16); Aspartate Amino Transferase < 10 U/L (15-37); Bilirubin,Total 0.6 mg/dL (0.00-1.00); Blood Urea Nitrogen 12 mg/dL (7-18); Calcium 8.8 mg/dL (8.5-10.1); Carbon Dioxide 30 mmol/L (21-32); Chloride 99 mmol/L (98-108); Estimated CRCL calculation 74 ml/min; Estimated Glomerular Filt Rate > 60; Glucose 196 mg/dL (70-99); Osmolality Calculated 286 mOsm/kg (285-295); Potassium 4.8 mmol/L (3.5-5.1); Sodium 136 mmol/L (136-145); Total Protein 6.4 g/dL (6.4-8.2)
[2021-07-19] MEDS: ENOXAPARIN 40 MG/0.4 ML SYRINGE SUB-Q (08:51)
[2021-07-19] MEDS: ENALAPRIL MALEATE 5 MG TABLET 20 MG PO (08:51)
[2021-07-19] MEDS: GABAPENTIN 400 MG CAPSULE 800 MG PO ×2 (08:51→12:51)
--- NOTE | 2021-07-19 09:56 | PM.SD2 ---
Same Day Admit/Disch: HPI History of Present Illness Chief complaint: COPD exacerbation Narrative: Andrez Owens is a 66 year old male that presented to our emergency department with shortness of breath due to his COPD. Patient has a past medical of COPD, lung cancer, Parkinson's and pleurisy without effusion. Patient notes that his chiropractor who is also his friend was visiting in noticed that the patient had difficulty breathing and brought him to our emergency department. Patient does have a nebulizer at home but was unable to use it at that time the reason being is unclear. Patient does have Parkinson's and it appears that he is unable to even hold his cup due to his tremors. I did have a discussion with patient concerning his living situation. I informed patient that it is obvious that he may possibly need to be placed in a senior care which he refuses and declines or an assisted living. Patient did agree to assisted living I informed him that he would have to get a family member or friend to arrange for him to live in assisted living. Patient was admitted to our facility on 02/25/2021, 03/11/2021, 04/23/2021, 06/03/2021, 06/25/2021, 07/03/2021, and 07/10/2021. Once again our director of casework services spoke with patient concerning placement and he has refused physical therapy notes he is at baseline if placement is recommended but once again patient declines. Vital signs 97.6, 74, 14, 97% on 1.5 L, 150/92, WBCs 2.0, hemoglobin 15, hematocrit 43.6, platelets 229, ABG pH 7.46, CO2 33.6, O2 84.6, bicarb 23.3, sodium 130, potassium 4.2, BUN 12, creatinine 0.66, glucose 102, magnesium 2.1, chest x-ray indicates lung mass which is not new. The patient denies SOB, CP, palpitation, extremity numbness, lightheadedness, dizziness, constipation, diarrhea, chills, or fever. Patient will discharge home. [facility] Past Medical History Medical History COPD (chronic obstructive pulmonary disease) Lung cancer Parkinsons Pleurisy without effusion Family History Family History Mother Chronic obstructive pulmonary disease Father Chronic obstructive pulmonary disease Social History Social History Smoking packs per day: 1.5 Smoking cigarettes per day: 30.0 Years smoked: 40 Smoking pack-years: 60.00 Smoking status: Current every day smoker Tobacco type: cigarettes Second hand tobacco smoke exposure: Yes Alcohol intake: former Drinks per week: 1 Substance use: unknown Substance use type: does not use Gender identity (if verbalized by the patient): Male Sexual Orientation (if Verbalized by the Patient): Straight or Heterosexual Spiritual care concerns: No Same Day Admit/Disch: Med Pre-admit Medications Home Medications Medication Instructions Recorded Confirmed Type enalapril maleate 20 mg PO DAILY 02/15/20 07/18/21 History gabapentin 800 mg PO TID 04/23/21 07/18/21 History montelukast 10 mg PO DAILY #60 tablet 04/24/21 07/18/21 Rx Spiriva with HandiHaler 1 cap INHALATION DAILY #10 inh 06/26/21 07/18/21 Rx albuterol sulfate 2 puff INHALATION QID #8.5 g 06/26/21 07/18/21 Rx budesonide-formoterol [Symbicort] 2 puff INHALATION BID #10.2 g 06/26/21 07/18/21 Rx prednisone 20 mg PO DAILY #60 tablet 07/19/21 Rx Exam Narrative: GENERAL: This is a well-nourished, well-developed patient, in no apparent distress. HEAD: normocephalic, atraumatic. EYES: PERRL. Sclera clear/white. Vision is grossly intact. EARS: External ears normal, auditory canals clear and without drainage, TMs normal without perforation. Hearing grossly intact. NOSE: External nose normal with no obvious nasal discharge, nares without redness, no rhinorrhea. THROAT: Mucous membranes moist, posterior pharynx clear. NECK: Neck supple, non-tender without lymphadenopathy, masses or thyromegaly. CARDIOVASCULAR:
[2021-07-19 12:43] VITALS: PULSE 102; RESP 20; O2SAT 96
[2021-07-19 12:55] VITALS: PULSE 78; RESP 20; O2SAT 99
--- NOTE | 2021-07-19 13:05 | PCPTNOTE ---
No Care Plan initiated due to patient being discharged today.
[2021-07-19 14:13] VITALS: O2SAT 97
--- NOTE | 2021-07-20 12:52 | PC.NURSE ---
Discharge call back completed, patient states instructions reviewed, no questions or concerns regarding care, will return for items left in room.
== END 2021-07-19 13:05 | disposition home or self-care (01) ==
LOC: CHSED 19:54 → CHS2ND 20:05
PROVIDERS: Nurse Practitioner; Admitting Provider Internal Medicine; Emergency Provider Emergency Medicine; PCP Physician Assistant; Visit Provider Internal Medicine
DX: J44.1 Chronic obstructive pulmonary disease with (acute) exacerbation (principal); C34.90 Malignant neoplasm of unspecified part of unspecified bronchus or lung; F17.210 Nicotine dependence, cigarettes, uncomplicated; E87.1 Hypo-osmolality and hyponatremia
CPT/HCPCS: 36415; 36600; 71045; 80053; 82805; 83735; 83880; 85025; 85027; 85730; 94640; 96365; 96366; 96367; 96372; 96375; 96376; 97161; 97165; 99285; A9270; G0378; J0456; J0696; J1650; J2920; J2930; J7030

== ENCOUNTER 2021-07-25 14:36 | Emergency (ER) | payer MEDICARE, MEDICAID, SELFPAY ==
--- NOTE | ~2021-07-25 | XR_ITS ---
EXAMINATION: XR chest 1V portable INDICATION: Shortness of breath, lung cancer TECHNIQUE: Portable AP chest at 1504 hours COMPARISON: 07/18/2021 FINDINGS: The lungs are free of acute opacities. There is no pleural effusion or pneumothorax. A stab le mass is seen in the left lower lobe. The heart size is normal. There is moderate osteoarthritis of the shoulders. IMPRESSION: 1. Left lower lobe mass, consistent with primary bronchogenic carcinoma. Reviewed, dictated and finalized at location B. OYEE COMMUNICATIONS INTERN
--- NOTE | 2021-07-25 14:43 | ED.SOB ---
HPI - SOB/Dyspnea General Chief Complaint: Shortness of Breath/Dyspnea Stated Complaint: AMB Time Seen by Provider: 07/25/21 14:45 Source: patient, EMS and RN notes reviewed Mode of arrival: EMS Limitations: no limitations History of Present Illness HPI Narrative: Patient comes from home states that he has been getting more short of breath the last 4-6 hours. He says that he sometimes can not turn his oxygen on so he may have been without oxygen this morning. He frequently comes here with COPD exacerbation and was just here 6 days ago discharged 5 days ago. He says nothing is really different from the last time other than he just feels short of breath. He was given nebulizer treatment and the ambulance EN route. He has not been around anyone else he has a operational intelligence officer that comes during the day to help but has nobody else the rest the time. MD elicited complaint: shortness of breath Pertinent past history: COPD and other (Lung CA) Onset (ago): hour(s) (6) Context: recent illness Timing: constant Severity: moderate Exacerbating factors: exertion Relieving factors: oxygen and bronchodilators Known history of: COPD Related Data Home oxygen amount: 2 liters Home Medications Medication Instructions Recorded Confirmed enalapril maleate 20 mg PO DAILY 02/15/20 07/18/21 gabapentin 800 mg PO TID 04/23/21 07/18/21 Allergies Allergy/AdvReac Type Severity Reaction Status Date / Time No Known Allergies Allergy Verified 07/18/21 18:40 Review of Systems Review of Systems: All systems reviewed & are unremarkable except as noted in HPI and below PMFSH Past Medical History Medical History COPD (chronic obstructive pulmonary disease) Lung cancer Parkinsons Pleurisy without effusion Family History Family History Mother Chronic obstructive pulmonary disease Father Chronic obstructive pulmonary disease Social History Social History Smoking packs per day: 1.5 Smoking cigarettes per day: 30.0 Years smoked: 40 Smoking pack-years: 60.00 Smoking status: Current every day smoker Tobacco type: cigarettes Second hand tobacco smoke exposure: Yes Alcohol intake: former Drinks per week: 1 Substance use: unknown Substance use type: does not use Gender identity (if verbalized by the patient): Male Sexual Orientation (if Verbalized by the Patient): Straight or Heterosexual Spiritual care concerns: No Exam Const: General: no acute distress and ill appearing chronically Nutritional Appearance: well nourished Orientation/consciousness: patient oriented x3 HENMT: Head: normal to inspection Ears: external ears normal Eyes: Conjunctivae: conjunctivae normal Pupils: Equal, round and reactive pupils present EOM: EOMs intact bilaterally Neck: Neck: normal visual inspection Resp: Effort & Inspection: normal respiratory effort Auscultation: clear to auscultation bilaterally Cardio: Rate: regular rate Rhythm: regular rhythm GI: GI Palp: Yes Soft to palpation and No Tenderness to palpation present (GI) Auscultation: normal bowel sounds Back/Spine/Pelvis: Cervical Spine: cervical ROM normal Thoracic/Lumbar Spine: thoraco-lumbar ROM normal Skin: General skin exam: normal color Rashes: no rashes Neuro: General: patient oriented x3, moves all extremities, no focal motor deficits and CN's II-XI intact bilaterally Speech: normal speech Extrem: General: normal to inspection and no clubbing, cyanosis or edema Psych: Mental Status: mental status grossly normal Affect: normal affect Attitude: cooperative Thought content: Yes Normal thought content present Course Course Emergency Course: Patient's workup here shows no significant abnormalities from previous evaluations in the emergency room. He often does not wear his oxygen at home and then get
--- NOTE | 2021-07-25 14:46 | ECG_ITS ---
Measurements Intervals [place] Rate: 101 P: 47 [place]: 159 QRS: 19 QRSD: 88 T: 48 QT: 326 QTc: 424 Interpretive Statements SINUS TACHYCARDIA COMPARED TO ECG 07/10/2021 21:57:05 SINUS TACHYCARDIA NOW PRESENT Electronically Signed On 07-26-2021 12:15:01 CISTERN ROOM OPERATOR by Thomas Buckner M.D.
[2021-07-25 14:54] VITALS: BP 116/84; PULSE 72; RESP 24; TEMP 35.9; O2SAT 100
[2021-07-25 15:04] LABS: Basophils Absolute Auto 0.02 K/mm3 (0.00-0.10); Basophils Percent Auto 0.1 % (0.0-1.0); Eosinophils Absolute Auto 0.01 K/mm3 (0.02-0.50); Eosinophils Percent Auto 0.1 % (1.0-6.0); Hematocrit 47.1 % (37.0-46.0); Hemoglobin 15.7 g/dL (12.4-15.3); Immature Granulocyte Percent A 0.7 % (0.0-0.0); Lymphocytes Absolute Auto 0.91 K/mm3 (1.10-4.50); Lymphocytes Percent Auto 6.8 % (18.0-42.0); Mean Corpuscular HGB Conc 33.3 g/dL (32.0-36.0); Mean Corpuscular Hemoglobin 30.5 pg (27.0-31.0); Mean Corpuscular Volume 91.5 fL (78.0-102.0); Mean Platelet Volume 8.3 fl (8.7-11.0); Monocytes Absolute Auto 0.31 K/mm3 (0.10-0.90); Monocytes Percent Auto 2.3 % (2.0-11.0); Neutrophils Absolute Auto 12.1 K/mm3 (1.7-7.2); Platelet Count Result 240 K/mm3 (150-420); Red Blood Count 5.15 M/mm3 (4.70-6.10); Red Cell Distribution Width 13.5 % (11.6-14.4); White Blood Count 13.4 K/mm3 (4.8-10.8)
[2021-07-25 15:25] LABS: Lactic Acid Reflex 1.5 mmol/L (0.4-2.0)
[2021-07-25 15:26] LABS: Alanine Aminotransferase 24 U/L (16-63); Albumin Level 3.3 g/dL (3.4-5.0); Alkaline Phosphatase 105 U/L (46-116); Anion Gap 7 mmol/L (8-16); Aspartate Amino Transferase 10 U/L (15-37); Bilirubin,Total 0.5 mg/dL (0.00-1.00); Blood Urea Nitrogen 13 mg/dL (7-18); Calcium 8.8 mg/dL (8.5-10.1); Carbon Dioxide 31 mmol/L (21-32); Chloride 97 mmol/L (98-108); Estimated CRCL calculation 83 ml/min; Estimated Glomerular Filt Rate > 60; Glucose 133 mg/dL (70-99); Osmolality Calculated 282 mOsm/kg (285-295); Potassium 4.9 mmol/L (3.5-5.1); Sodium 135 mmol/L (136-145); Total Protein 6.3 g/dL (6.4-8.2); Troponin I 12.4 ng/L (0.00-60.4)
[2021-07-25 15:27] LABS: CRP < 0.5 mg/dL (0.0-0.9)
[2021-07-25 15:48] LABS: SARS-CoV-2 RNA PCR Negative (Negative)
[2021-07-25 16:20] VITALS: PULSE 78; RESP 20; O2SAT 98
[2021-07-25] MEDS: IPRATROPIUM 0.5 MG/ALBUTEROL SULFATE 2.5 MG AMPUL.NEB 3 ML INHALATION (16:22)
[2021-07-25] MEDS: SODIUM CHLORIDE 0.9% 3 ML NEB FOR INHALATION (16:23)
[2021-07-25 16:24] VITALS: BP 132/90; PULSE 78; RESP 20; O2SAT 95
[2021-07-25 17:00] VITALS: PULSE 80; RESP 19; O2SAT 100
[2021-07-25 17:33] VITALS: BP 118/66; PULSE 88; RESP 18; TEMP 36.6; O2SAT 98
[2021-07-25 17:50] VITALS: BP 120/66; PULSE 83; RESP 18; TEMP 37; O2SAT 99
== END 2021-07-25 17:51 | disposition home or self-care (01) ==
PROVIDERS: Emergency Provider Emergency Medicine; PCP Physician Assistant
DX: J41.0 Simple chronic bronchitis (principal); Z20.822 Contact with and (suspected) exposure to COVID-19
CPT/HCPCS: 36415; 71045; 80053; 83605; 83735; 84484; 85025; 86140; 93005; 99284; A9270; C9803; U0003; U0005

== ENCOUNTER 2021-07-26 14:13 | Emergency (ER) | payer MEDICARE, MEDICAID, SELFPAY ==
--- NOTE | ~2021-07-26 | XR_ITS ---
EXAMINATION: XR chest 1V portable EXAM DATE: 07/26/2021 14:57 INDICATION: SOB,Back Pain. Pulmonary nodules. TECHNIQUE: Portable AP frontal chest x-ray was obtained. Comparison is made to prior examination from 07/25/2021. Correlation was made with report from chest CT 06/25/2021. FINDINGS: Left lower lobe cavitary mass reidentified. The smaller pulmonary nodules seen on CT not we ll identified. No evidence of acute airspace disease, pneumothorax, pleural effusion or significant i nterval change. Cardiomediastinal silhouette is normal. There are bony degenerative changes. IMPRESSION: Left lower lobe cavitary mass unchanged. Reviewed, dictated and finalized at location A. WIRE INSULATOR
[2021-07-26 14:23] VITALS: BP 114/85; PULSE 104; RESP 16; TEMP 36.2; O2SAT 99
--- NOTE | 2021-07-26 14:27 | ECG_ITS ---
Measurements Intervals [place] Rate: 98 P: 45 PA: 154 QRS: 31 QRSD: 89 T: 70 QT: 343 QTc: 439 Interpretive Statements SINUS RHYTHM BASELINE ARTIFACT BORDERLINE ECG COMPARED TO ECG 07/25/2021 15:05:14 HEART RATE HAS IMPROVED Electronically Signed On 07-26-2021 14:43:30 FUR SCRAPER by Celso Yen M.D.
[2021-07-26 14:54] VITALS: O2SAT 99
[2021-07-26 14:57] LABS: Basophils Absolute Auto 0.01 K/mm3 (0.00-0.10); Basophils Percent Auto 0.1 % (0.0-1.0); Eosinophils Absolute Auto 0.01 K/mm3 (0.02-0.50); Eosinophils Percent Auto 0.1 % (1.0-6.0); Hematocrit 43.9 % (37.0-46.0); Hemoglobin 14.6 g/dL (12.4-15.3); Immature Granulocyte Absolute 0.07 K/mm3 (0.00-0.00); Immature Granulocyte Percent A 0.6 % (0.0-0.0); Lymphocytes Absolute Auto 1.51 K/mm3 (1.10-4.50); Mean Corpuscular HGB Conc 33.3 g/dL (32.0-36.0); Mean Corpuscular Hemoglobin 30.1 pg (27.0-31.0); Mean Corpuscular Volume 90.5 fL (78.0-102.0); Mean Platelet Volume 8.2 fl (8.7-11.0); Monocytes Absolute Auto 0.79 K/mm3 (0.10-0.90); Monocytes Percent Auto 6.3 % (2.0-11.0); Neutrophils Absolute Auto 10.2 K/mm3 (1.7-7.2); Neutrophils Percent Auto 80.9 % (50.0-70.0); Platelet Count Result 236 K/mm3 (150-420); Red Blood Count 4.85 M/mm3 (4.70-6.10); Red Cell Distribution Width 13.8 % (11.6-14.4); White Blood Count 12.6 K/mm3 (4.8-10.8)
[2021-07-26 14:58] LABS: HCO3 ABG 24.4 mmol/L (23-29); Oxygen Content ABG 20.1 %vol (16.0-22.0); Oxygen Saturation ABG 97.7 % (95-97); Oxyhemoglobin 95.6 % (94-100); PCO2 ABG 35.4 mmHg (35-45); PO2 ABG 109.3 mmHg (75-85); Total Hemoglobin 14.9 g/dL (12.0-18.0); pH ABG 7.46 (7.35-7.45)
[2021-07-26 15:06] LABS: Device NASAL CANNULA; Modified Allen's Test Pass; Site Drawn LEFT RADIAL
[2021-07-26] MEDS: ALBUTEROL SULFATE (*SP) INHALER 4 PUFF INHALATION (15:14)
[2021-07-26] MEDS: SODIUM CHLORIDE 0.9% IV 500 ML 999 ML IV CONT (15:14)
[2021-07-26 15:15] VITALS: PULSE 97; RESP 18; O2SAT 98
[2021-07-26] MEDS: methylPREDNISolone SOD SUCC 125 MG VIAL IV PUSH (15:15)
[2021-07-26 15:17] VITALS: PULSE 96; RESP 18; O2SAT 97
[2021-07-26 15:19] LABS: Alanine Aminotransferase 21 U/L (16-63); Albumin Level 3.2 g/dL (3.4-5.0); Alkaline Phosphatase 99 U/L (46-116); Anion Gap 9 mmol/L (8-16); Aspartate Amino Transferase < 10 U/L (15-37); Bilirubin,Total 0.6 mg/dL (0.00-1.00); Blood Urea Nitrogen 14 mg/dL (7-18); Calcium 8.6 mg/dL (8.5-10.1); Carbon Dioxide 28 mmol/L (21-32); Chloride 96 mmol/L (98-108); Estimated CRCL calculation 89 ml/min; Estimated Glomerular Filt Rate > 60; Glucose 130 mg/dL (70-99); Osmolality Calculated 278 mOsm/kg (285-295); Potassium 4.2 mmol/L (3.5-5.1); Sodium 133 mmol/L (136-145); Total Protein 6.1 g/dL (6.4-8.2)
[2021-07-26 15:20] LABS: NT Pro B Type Natriuretic Pept 379 pg/mL (0-125)
[2021-07-26 15:23] LABS: Influenza Control Valid (Valid); SARS-CoV-2 Ag Negative (Negative)
[2021-07-26 15:31] LABS: Add Urine Microscopic? NO; Appearance Urine Clear (Clear); Bilirubin Urine Negative (Negative); Blood Urine Negative (Negative); Color Urine Yellow (Yellow); Glucose Urine UA Negative (Negative); Ketones Urine Negative (Negative); Leukocyte Esterase Ur Negative (Negative); Nitrate Urine Negative (Negative); Protein Urine Negative (Negative); Urobilinogen Urine 0.2 mg/dL (0.2-1.0)
--- NOTE | 2021-07-26 16:34 | ED.SOB ---
HPI - SOB/Dyspnea General Chief Complaint: Shortness of Breath/Dyspnea Stated Complaint: Ambulance Time Seen by Provider: 07/26/21 14:15 Source: patient, EMS and RN notes reviewed Mode of arrival: EMS Limitations: no limitations History of Present Illness MD elicited complaint: shortness of breath Pertinent past history: COPD and other (lung cancer.) Onset (ago): day(s) (1) Context: recent illness and other (pt was seen in the ED on 07/25 and sent home with Rx. the back pain was worse today.) Timing: constant Severity: mild Exacerbating factors: nothing Relieving factors: nothing Known history of: COPD Associated symptoms: wheezing Treatment prior to arrival: oxygen and bronchodilator Related Data Home Medications Medication Instructions Recorded Confirmed enalapril maleate 20 mg PO DAILY 02/15/20 08/12/21 gabapentin 800 mg PO TID 04/23/21 08/12/21 Allergies Allergy/AdvReac Type Severity Reaction Status Date / Time No Known Allergies Allergy Verified 08/12/21 16:26 Review of Systems Review of Systems: All systems reviewed & are unremarkable except as noted in HPI and below PMFSH Past Medical History Medical History Back ache COPD (chronic obstructive pulmonary disease) Lung cancer Parkinsons Pleurisy without effusion Family History Family History Mother Chronic obstructive pulmonary disease Heart disease Father Chronic obstructive pulmonary disease Heart disease Social History Social History Smoking packs per day: 1 Smoking cigarettes per day: 20.0 Years smoked: 50 Smoking pack-years: 50.00 Smoking status: Former smoker Tobacco type: cigarettes Second hand tobacco smoke exposure: No Alcohol intake: former Drinks per week: 1 Substance use: unknown Substance use type: does not use Gender identity (if verbalized by the patient): Male Sexual Orientation (if Verbalized by the Patient): Straight or Heterosexual Spiritual care concerns: No Exam Const: General: no acute distress and alert Nutritional Appearance: well nourished Orientation/consciousness: patient oriented x3 Limitations: no limitations HENMT: Head: normal to inspection Ears: external ears normal and TM's normal bilaterally General nose exam: Normal external nose present and Normal nares present Mouth: Yes lip normal and Yes moist mucous membranes Eyes: Conjunctivae: conjunctivae normal Pupils: Equal, round and reactive pupils present EOM: EOMs intact bilaterally Neck: Neck: normal visual inspection Chest: Chest palpation & inspection: normal inspection of the chest Resp: Effort & Inspection: normal respiratory effort Auscultation: clear to auscultation bilaterally Cardio: Rate: regular rate Rhythm: regular rhythm GI: GI Palp: Yes Soft to palpation and No Tenderness to palpation present (GI) Auscultation: normal bowel sounds : General: Yes no CVA tenderness Back/Spine/Pelvis: Back: no CVA tenderness Skin: General skin exam: normal color Neuro: General: patient oriented x3, moves all extremities, no meningeal signs, no focal motor deficits and CN's II-XI intact bilaterally Extrem: General: edema (minimal pedal edema) bilateral Psych: Mental Status: mental status grossly normal Affect: normal affect Attitude: cooperative Thought content: Yes Normal thought content present Course Course Emergency Course: Pt was stable in the ED. Reevaluation(s) Date: 07/26/21 Time: 15:10 Vital Signs Vital signs: Vital Signs Temperature 36.2 C L 07/26/21 14:23 Pulse Rate 104 H 07/26/21 14:23 Respiratory Rate 16 07/26/21 14:23 Blood Pressure 114/85 07/26/21 14:23 Pulse Oximetry 99 07/26/21 14:23 Temperature 36.9 C 07/26/21 17:22 Pulse Rate 90 07/26/21 17:22 Respiratory Rate 18 07/26/21 17:22 Blood
[2021-07-26] MEDS: KETOROLAC (*BKC) 60 MG/2 ML VIAL IM (17:01)
[2021-07-26 17:22] VITALS: BP 136/88; PULSE 90; RESP 18; TEMP 36.9; O2SAT 99
== END 2021-07-26 17:27 | disposition home or self-care (01) ==
PROVIDERS: Emergency Provider Emergency Medicine; PCP Physician Assistant
DX: J44.9 Chronic obstructive pulmonary disease, unspecified (principal); C34.32 Malignant neoplasm of lower lobe, left bronchus or lung; M54.50 Low back pain, unspecified; Z20.822 Contact with and (suspected) exposure to COVID-19; Z87.891 Personal history of nicotine dependence
CPT/HCPCS: 36600; 71045; 80053; 81003; 82805; 83880; 84484; 85025; 87426; 87804; 93005; 94640; 96361; 96372; 96374; 99284; A9270; C9803; J1885; J2930; J7040

== ENCOUNTER 2021-07-27 11:12 | Emergency (ER) | payer MEDICARE, MEDICAID, SELFPAY ==
[2021-07-27] VITALS (7 sets, daily range): BP systolic 130–145; BP diastolic 80–98; PULSE 52–90; RESP 18–20; TEMP 36.6; O2SAT 89–99
--- NOTE | ~2021-07-27 | XR_ITS ---
EXAMINATION: XR chest 2V DATE: 07/27/2021 12:34 INDICATION: Dyspnea. Wheezing. TECHNIQUE: Frontal and lateral views of the chest were obtained. COMPARISON: Chest single view 07/26/2021 FINDINGS: There is a cavitary mass in left lung lower lobe. No pleural effusion or pneumothorax. The heart size is normal. Calcified mediastinal lymph nodes are consistent with old granulomatous disease . There are multiple chronic compression fractures in the spine. IMPRESSION: 1. Stable cavitary mass in left lung lower lobe, consistent with primary bronchogenic carcinoma. Reviewed, dictated and finalized at location A. GRADER IMPRESSION: 1. Stable cavitary mass in left lung lower lobe, consistent with primary bronch ogenic carcinoma.
--- NOTE | 2021-07-27 11:42 | ECG_ITS ---
Measurements Intervals [place] Rate: 80 P: 63 [place]: 162 QRS: 33 QRSD: 83 T: 64 QT: 345 QTc: 399 Interpretive Statements SINUS RHYTHM NORMAL ECG COMPARED TO ECG 07/26/2021 14:41:27 NO SIGNIFICANT CHANGES Electronically Signed On 07-27-2021 13:05:20 MERCHANDISE APPRAISER by Celso Yen M.D.
--- NOTE | 2021-07-27 11:43 | ED.SOB ---
HPI - SOB/Dyspnea General Chief Complaint: Shortness of Breath/Dyspnea Stated Complaint: AMBULANCE Time Seen by Provider: 07/27/21 11:23 Source: patient, EMS and RN notes reviewed Mode of arrival: EMS Limitations: no limitations History of Present Illness HPI Narrative: this is patient's 3rd visit in 3 days brought in by ambulance because he feels short of breath. He admits that sometimes he can not turn on his oxygen. He also says that he does not uses oxygen and all the time. He says that he did not eat this morning and last night he did not eat because he was sleeping. This is his 3rd evaluation and the last 3 days and the other 2 evaluations were without any significant abnormalities and he was discharged home. MD elicited complaint: shortness of breath Pertinent past history: COPD and asthma Onset (ago): hour(s) (4) Timing: constant and progressively worsening Severity: moderate Exacerbating factors: lying flat and exertion Relieving factors: oxygen Known history of: COPD and asthma Associated symptoms: denies other symptoms Treatment prior to arrival: oxygen and bronchodilator Related Data Home Medications Medication Instructions Recorded Confirmed enalapril maleate 20 mg PO DAILY 02/15/20 07/27/21 gabapentin 800 mg PO TID 04/23/21 07/27/21 Allergies Allergy/AdvReac Type Severity Reaction Status Date / Time No Known Allergies Allergy Verified 07/27/21 12:40 Review of Systems Review of Systems: All systems reviewed & are unremarkable except as noted in HPI and below Constitutional: Constitutional: Denies chills and Denies fever(s) Cardiovascular: Cardiovascular: Denies chest pain Respiratory: Respiratory: Reports cough ( Chronic from COPD) Gastrointestinal: Gastrointestinal: Denies nausea and Denies vomiting [facility] Past Medical History Medical History COPD (chronic obstructive pulmonary disease) Lung cancer Parkinsons Pleurisy without effusion Family History Family History Mother Chronic obstructive pulmonary disease Father Chronic obstructive pulmonary disease Social History Social History Smoking packs per day: 1.5 Smoking cigarettes per day: 30.0 Years smoked: 40 Smoking pack-years: 60.00 Smoking status: Current every day smoker Tobacco type: cigarettes Second hand tobacco smoke exposure: Yes Alcohol intake: former Drinks per week: 1 Substance use: unknown Substance use type: does not use Gender identity (if verbalized by the patient): Male Sexual Orientation (if Verbalized by the Patient): Straight or Heterosexual Spiritual care concerns: No Exam Const: General: no acute distress, alert and ill appearing chronically Nutritional Appearance: well nourished and obese centrally obese Orientation/consciousness: oriented to person, oriented to place and No oriented to time ( Did not know the month, date, day or year) HENMT: Head: normal to inspection Ears: external ears normal Face and sinus: normal facial exam Mouth: Yes moist mucous membranes Eyes: Conjunctivae: conjunctivae normal Pupils: Equal, round and reactive pupils present EOM: EOMs intact bilaterally Neck: Neck: normal visual inspection Resp: Effort & Inspection: normal respiratory effort Auscultation: rhonchi (mild scattered) Cardio: Rate: regular rate Rhythm: regular rhythm GI: GI Palp: Yes Soft to palpation, No Tenderness to palpation present (GI) and No Guarding due to palpation present (GI) Auscultation: normal bowel sounds Back/Spine/Pelvis: Cervical Spine: cervical ROM normal Thoracic/Lumbar Spine: thoraco-lumbar ROM normal Skin: General skin exam: normal color Rashes: no rashes Neuro: General: moves all extremities, no meningeal signs, no focal motor deficits and CN's II-XI intact bilaterally Speech: normal speech Ex
[2021-07-27] MEDS: IPRATROPIUM 0.5 MG/ALBUTEROL SULFATE 2.5 MG AMPUL.NEB 3 ML (12:08)
[2021-07-27 12:12] LABS: Base Excess ABG 2.6 mmol/L (0-2); HCO3 ABG 26.2 mmol/L (23-29); Oxygen Content ABG 19.5 %vol (16.0-22.0); Oxygen Saturation ABG 98.1 % (95-97); Oxyhemoglobin 96.3 % (94-100); PCO2 ABG 37.2 mmHg (35-45); PO2 ABG 121.4 mmHg (75-85); Total Hemoglobin 14.3 g/dL (12.0-18.0); pH ABG 7.47 (7.35-7.45)
[2021-07-27 12:13] LABS: Device NASAL CANNULA; Modified Allen's Test Pass; Site Drawn LEFT RADIAL
[2021-07-27 12:16] LABS: Basophils Absolute Auto 0.01 K/mm3 (0.00-0.10); Basophils Percent Auto 0.1 % (0.0-1.0); Hematocrit 40.7 % (37.0-46.0); Immature Granulocyte Absolute 0.08 K/mm3 (0.00-0.00); Immature Granulocyte Percent A 0.6 % (0.0-0.0); Lymphocytes Absolute Auto 0.72 K/mm3 (1.10-4.50); Lymphocytes Percent Auto 5.7 % (18.0-42.0); Mean Corpuscular HGB Conc 34.4 g/dL (32.0-36.0); Mean Corpuscular Hemoglobin 30.7 pg (27.0-31.0); Mean Corpuscular Volume 89.3 fL (78.0-102.0); Mean Platelet Volume 8.2 fl (8.7-11.0); Monocytes Absolute Auto 0.65 K/mm3 (0.10-0.90); Monocytes Percent Auto 5.2 % (2.0-11.0); Neutrophils Absolute Auto 11.2 K/mm3 (1.7-7.2); Neutrophils Percent Auto 88.4 % (50.0-70.0); Platelet Count Result 211 K/mm3 (150-420); Red Blood Count 4.56 M/mm3 (4.70-6.10); Red Cell Distribution Width 13.5 % (11.6-14.4); White Blood Count 12.6 K/mm3 (4.8-10.8)
[2021-07-27 12:37] LABS: INR 0.9
[2021-07-27 12:45] LABS: Alanine Aminotransferase 20 U/L (16-63); Alkaline Phosphatase 92 U/L (46-116); Anion Gap 7 mmol/L (8-16); Aspartate Amino Transferase 11 U/L (15-37); Bilirubin,Total 0.8 mg/dL (0.00-1.00); Blood Urea Nitrogen 18 mg/dL (7-18); Calcium 8.5 mg/dL (8.5-10.1); Carbon Dioxide 28 mmol/L (21-32); Chloride 95 mmol/L (98-108); Estimated CRCL calculation 100 ml/min; Estimated Glomerular Filt Rate > 60; Glucose 109 mg/dL (70-99); Magnesium 2.3 mg/dL (1.8-2.4); NT Pro B Type Natriuretic Pept 341 pg/mL (0-125); Osmolality Calculated 272 mOsm/kg (285-295); Potassium 4.7 mmol/L (3.5-5.1); Sodium 130 mmol/L (136-145); Total Protein 5.8 g/dL (6.4-8.2)
--- NOTE | 2021-07-27 13:10 | PC.NURSE ---
1310 LUNCH GIVEN PER PT REQUEST WITH DOCTORS PERMISSION
[2021-07-27] MEDS: SODIUM CHLORIDE 0.9% IV 500 ML 999 ML IV CONT (14:15)
--- NOTE | 2021-07-27 15:20 | PCCCNOTE ---
Spoke to patient about ED recurring visits in last few days. Patient at this time alert and orientated x3. Patient is adamant of not going to a fpc. Patient doesn't meet requirements of obs or inpatient stay. Spoke with Help at [facility], Agnieszka [phone]. She reports that homemaker, Alek goes 5 days a week and will be there tomorrow at [address]. [address] Chatman's office in [place], patient has appointment at 1030 tomorrow 07/28/21- Alek is aware and will be taking. Also let Dr. Chatman's office know recurrent ED visits and request home health and maybe start guardianship talks with patient. Have Aydin to come out to do a system care check on O2 equipment/nebulizer r/t patient reports is not working right or he doesn't remember how to use it. Call Elder services to see if they could do reassessment to see if he needs more hours for homemaker program. Also call Swapna and adult protective services for them to a follow up on patient living conditions etc. Also spoke to emergency contact- friend- Jeff Russell to see how often he checks on him and what he is seeing. Jeff states, If would just use the O2 and nebulizer equipment like he suppose too, he would not be getting short of breath and calling the ambulance. Shared all this with Dr. Neumann, ED nurses, and Gregg Casiano HAMMERSMITH HELPER-hospitalist.
--- NOTE | 2021-07-27 15:21 | PC.NURSE ---
1500 rn progressive care unit set up appt and health care worker and welfare check and equipment check pt and friend of pt all notified
== END 2021-07-27 16:04 | disposition home or self-care (01) ==
PROVIDERS: Emergency Provider Emergency Medicine; PCP Physician Assistant
DX: C34.90 Malignant neoplasm of unspecified part of unspecified bronchus or lung (principal); J41.0 Simple chronic bronchitis; F03.90 Unspecified dementia, unspecified severity, without behavioral disturbance, psychotic disturbance, mood disturbance, and anxiety; F17.200 Nicotine dependence, unspecified, uncomplicated
CPT/HCPCS: 36415; 36600; 71046; 80053; 82805; 83735; 83880; 85025; 85610; 93005; 94640; 96360; 99283; J7040

== ENCOUNTER 2021-07-28 09:07 | Emergency (ER) | payer MEDICARE, MEDICAID, SELFPAY ==
--- NOTE | ~2021-07-28 | XR_ITS ---
EXAMINATION: XR chest 1V portable INDICATION: Shortness of breath TECHNIQUE: Portable AP chest at 0931 hours COMPARISON: 07/27/2021 FINDINGS: A cavitary mass of the left lower lobe is again noted. There is also a 1.3 cm nodule of the right lower lobe. No acute airspace opacities are identified. There is no pleural effusion or pneumo thorax. The cardiomediastinal silhouette is normal. IMPRESSION: 1. No acute cardiopulmonary abnormality. 2. Stable cavitary mass of the left lower lobe and right lower lobe nodule, consistent with primary b ronchogenic carcinoma. Reviewed, dictated and finalized at location B. TED CIRCUIT BOARD PCB DRAFTSMAN IMPRESSION: 1. No acute cardiopulmonary abnormality. 2. Stable cavitary mass of the left lower lobe and right lower lobe nodule, con sistent with primary bronchogenic carcinoma.
--- NOTE | 2021-07-28 09:13 | ECG_ITS ---
Measurements Intervals [place] Rate: 94 P: 73 [place]: 163 QRS: 54 QRSD: 90 T: 68 QT: 332 QTc: 415 Interpretive Statements SINUS RHYTHM NORMAL ECG COMPARED TO ECG 07/27/2021 12:01:50 NO SIGNIFICANT CHANGES Electronically Signed On 07-28-2021 13:40:28 GEOGRAPHIC INFORMATION SYSTEMS MANAGER by Celso Yen M.D.
[2021-07-28 09:19] VITALS: BP 157/101; PULSE 96; RESP 20; TEMP 36.6; O2SAT 91
--- NOTE | 2021-07-28 09:20 | ED.SOB ---
HPI - SOB/Dyspnea General Chief Complaint: Chest Pain Stated Complaint: AMBULANCE Time Seen by Provider: 07/28/21 09:23 Source: patient and EMS Mode of arrival: ambulatory History of Present Illness HPI Narrative: patient with a history of cavitary lesion in his lungs the history of COPD continued smoker has been seen in the ER for the last 3 to 4 days in a row. This morning called EMS because he was having dyspnea and hard time catching his breath states that he was having chest pain he rates about 2/10 atypical chest pain with no radiation of his pain no nausea vomiting no diaphoresis. Currently there is no fever chills vitals are stable denies abdominal pain no flank pain no dysuria hematuria. MD elicited complaint: shortness of breath Pertinent past history: COPD Onset (ago): day(s) Context: recent illness Timing: constant Severity: moderate Related Data Home Medications Medication Instructions Recorded Confirmed enalapril maleate 20 mg PO DAILY 02/15/20 07/27/21 gabapentin 800 mg PO TID 04/23/21 07/27/21 Allergies Allergy/AdvReac Type Severity Reaction Status Date / Time No Known Allergies Allergy Verified 07/28/21 09:29 Review of Systems Review of Systems: All systems reviewed & are unremarkable except as noted in HPI and below PMFSH Past Medical History Medical History COPD (chronic obstructive pulmonary disease) Lung cancer Parkinsons Pleurisy without effusion Family History Family History Mother Chronic obstructive pulmonary disease Father Chronic obstructive pulmonary disease Social History Social History Smoking packs per day: 1.5 Smoking cigarettes per day: 30.0 Years smoked: 40 Smoking pack-years: 60.00 Smoking status: Current every day smoker Tobacco type: cigarettes Second hand tobacco smoke exposure: Yes Alcohol intake: former Drinks per week: 1 Substance use: unknown Substance use type: does not use Gender identity (if verbalized by the patient): Male Sexual Orientation (if Verbalized by the Patient): Straight or Heterosexual Spiritual care concerns: No Exam Const: General: no acute distress Orientation/consciousness: patient oriented x3 HENMT: Head: normal to inspection Eyes: Conjunctivae: conjunctivae normal Pupils: Equal, round and reactive pupils present Neck: Neck: normal visual inspection and no lymphadenopathy Chest: Chest palpation & inspection: normal inspection of the chest Resp: Effort & Inspection: normal respiratory effort Auscultation: wheezes and diminished lung sounds Cardio: Rate: regular rate Rhythm: regular rhythm GI: GI Palp: Yes Soft to palpation Back/Spine/Pelvis: Back: no CVA tenderness Skin: General skin exam: normal color Rashes: no rashes Neuro: General: patient oriented x3, moves all extremities, no meningeal signs and no focal motor deficits Other: Parkinson like tremors Extrem: General: normal to inspection and no pedal edema Psych: Mental Status: mental status grossly normal Affect: normal affect Course Course Emergency Course: patient started on IV and given IV Solu-Medrol, DuoNebs, x-rays and labs reviewed with patient , patient had ABGs and blood work reviewed which everything is good since we with within normal limits and compared to prior x-rays and lab work are stable patient received DuoNebs and IV steroids and advised to follow-up with primary care physician. Critical Care Time Critical Care Time Critical Care Time: No Discharge Plan Discharge Clinical Impression: COPD (chronic obstructive pulmonary disease) Qualifiers: COPD type: unspecified COPD Qualified Code(s): J44.9 - Chronic obstructive pulmonary disease, unspecified Lung cancer Qualifiers: Laterality: unspecified laterality Lung location: unspecified part
[2021-07-28 09:25] VITALS: O2SAT 91
[2021-07-28] MEDS: IPRATROPIUM 0.5 MG/ALBUTEROL SULFATE 2.5 MG AMPUL.NEB 3 ML INHALATION (09:33)
[2021-07-28 09:54] VITALS: PULSE 95; RESP 18; O2SAT 98
[2021-07-28 09:58] LABS: Basophils Absolute Auto 0.01 K/mm3 (0.00-0.10); Basophils Percent Auto 0.1 % (0.0-1.0); Eosinophils Absolute Auto 0.02 K/mm3 (0.02-0.50); Eosinophils Percent Auto 0.3 % (1.0-6.0); Hematocrit 46.9 % (37.0-46.0); Hemoglobin 15.8 g/dL (12.4-15.3); Immature Granulocyte Absolute 0.04 K/mm3 (0.00-0.00); Immature Granulocyte Percent A 0.5 % (0.0-0.0); Lymphocytes Absolute Auto 1.68 K/mm3 (1.10-4.50); Lymphocytes Percent Auto 21.5 % (18.0-42.0); Mean Corpuscular HGB Conc 33.7 g/dL (32.0-36.0); Mean Corpuscular Hemoglobin 31.2 pg (27.0-31.0); Mean Corpuscular Volume 92.7 fL (78.0-102.0); Mean Platelet Volume 9.2 fl (8.7-11.0); Monocytes Absolute Auto 0.72 K/mm3 (0.10-0.90); Monocytes Percent Auto 9.2 % (2.0-11.0); Neutrophils Absolute Auto 5.3 K/mm3 (1.7-7.2); Neutrophils Percent Auto 68.4 % (50.0-70.0); Platelet Count Result 233 K/mm3 (150-420); Red Blood Count 5.06 M/mm3 (4.70-6.10); Red Cell Distribution Width 14.1 % (11.6-14.4); White Blood Count 7.8 K/mm3 (4.8-10.8)
[2021-07-28] MEDS: methylPREDNISolone SOD SUCC 125 MG VIAL IV PUSH (10:04)
[2021-07-28 10:07] LABS: Base Excess ABG 2.8 mmol/L (0-2); HCO3 ABG 27.8 mmol/L (23-29); Oxygen Content ABG 21.5 %vol (16.0-22.0); Oxygen Saturation ABG 97.9 % (95-97); Oxyhemoglobin 96.7 % (94-100); PO2 ABG 112.3 mmHg (75-85); Total Hemoglobin 15.7 g/dL (12.0-18.0); pH ABG 7.42 (7.35-7.45)
[2021-07-28 10:09] VITALS: PULSE 92; RESP 18; O2SAT 99
[2021-07-28 10:13] LABS: Device NASAL CANNULA; Modified Allen's Test Pass; Partial Thromboplastin Time 24.2 SEC (23.90-30.70); Prothrombin Time 10.3 Seconds (9.50-12.10); Site Drawn LEFT RADIAL
[2021-07-28 10:20] LABS: Alanine Aminotransferase 21 U/L (16-63); Albumin Level 3.3 g/dL (3.4-5.0); Alkaline Phosphatase 96 U/L (46-116); Anion Gap 7 mmol/L (8-16); Aspartate Amino Transferase 12 U/L (15-37); Bilirubin,Total 0.8 mg/dL (0.00-1.00); Blood Urea Nitrogen 15 mg/dL (7-18); Calcium 8.6 mg/dL (8.5-10.1); Carbon Dioxide 32 mmol/L (21-32); Chloride 101 mmol/L (98-108); Estimated CRCL calculation 99 ml/min; Estimated Glomerular Filt Rate > 60; Glucose 84 mg/dL (70-99); Magnesium 2.3 mg/dL (1.8-2.4); NT Pro B Type Natriuretic Pept 445 pg/mL (0-125); Osmolality Calculated 289 mOsm/kg (285-295); Potassium 4.6 mmol/L (3.5-5.1); Sodium 140 mmol/L (136-145); Total Protein 6.4 g/dL (6.4-8.2); Troponin I 12.7 ng/L (0.00-60.4)
[2021-07-28 11:03] VITALS: BP 156/72; PULSE 90; RESP 20; TEMP 36.6; O2SAT 99
--- NOTE | 2021-07-28 11:11 | PCCCNOTE ---
Spoke to pt while in ED about needing more medical supervision than being at home alone. Pt continues to refuse any longterm placement. Will call Adult Protective Services and notify them he has been back into ED today.
--- NOTE | 2021-07-28 11:21 | PCCCNOTE ---
Spoke to Brijesh at [facility] [phone] with Adult Protection Services to report pt return to ED today. Pt unable to provide self nebulizer txs due to tremors.
== END 2021-07-28 11:00 | disposition home or self-care (01) ==
PROVIDERS: Emergency Provider Emergency Medicine; PCP Physician Assistant
DX: J44.9 Chronic obstructive pulmonary disease, unspecified (principal); C34.90 Malignant neoplasm of unspecified part of unspecified bronchus or lung; G20 Parkinson's disease; F17.200 Nicotine dependence, unspecified, uncomplicated
CPT/HCPCS: 36415; 36600; 71045; 80053; 82805; 83735; 83880; 84484; 85025; 85610; 85730; 87040; 93005; 94640; 96374; 99284; J2930

== ENCOUNTER 2021-07-30 12:35 | Emergency (ER) | payer MEDICARE, MEDICAID, SELFPAY ==
--- NOTE | ~2021-07-30 | XR_ITS ---
EXAMINATION: XR chest 1V portable DATE: 07/30/2021 12:55 INDICATION: Chest pain. Shortness of breath. TECHNIQUE: A single frontal view of the chest was obtained on 2 radiographs. COMPARISON: Chest single view 07/28/2021, chest CT 06/25/2021 FINDINGS: There is a cavitary mass in left lung lower lobe. There is a nodule in right lung lower lob e. No pleural effusion or pneumothorax. The heart size is normal. There are healing right rib fractur es. IMPRESSION: 1. Cavitary mass in left lung lower lobe and nodule in right lung lower lobe, consistent metastatic d isease. Reviewed, dictated and finalized at location A. MIXER IMPRESSION: 1. Cavitary mass in left lung lower lobe and nodule in right lung lower lobe, c onsistent metastatic disease.
[2021-07-30 12:35] VITALS: BP 121/69; PULSE 91; RESP 20; TEMP 35.7; O2SAT 98
--- NOTE | 2021-07-30 12:44 | ECG_ITS ---
Measurements Intervals [place] Rate: 88 P: 66 [place]: 158 QRS: 66 QRSD: 83 T: 75 QT: 350 QTc: 425 Interpretive Statements SINUS RHYTHM COMPARED TO ECG 07/28/2021 09:24:25 NO SIGNIFICANT CHANGES Electronically Signed On 07-30-2021 13:26:20 PEDIATRIC PHYSIATRIST by Carolina Justice M.D.
[2021-07-30 13:04] LABS: Base Excess ABG 6.1 mmol/L (0-2); HCO3 ABG 30.5 mmol/L (23-29); Oxygen Content ABG 19.9 %vol (16.0-22.0); Oxygen Saturation ABG 94.9 % (95-97); Oxyhemoglobin 92.4 % (94-100); PCO2 ABG 43.2 mmHg (35-45); PO2 ABG 72.8 mmHg (75-85); Total Hemoglobin 15.3 g/dL (12.0-18.0); pH ABG 7.47 (7.35-7.45)
[2021-07-30 13:05] LABS: Device ROOM AIR; Modified Allen's Test Pass; Site Drawn RIGHT RADIAL
[2021-07-30 13:06] LABS: Basophils Absolute Auto 0.01 K/mm3 (0.00-0.10); Basophils Percent Auto 0.1 % (0.0-1.0); Eosinophils Absolute Auto 0.01 K/mm3 (0.02-0.50); Eosinophils Percent Auto 0.1 % (1.0-6.0); Hematocrit 44.1 % (37.0-46.0); Immature Granulocyte Absolute 0.07 K/mm3 (0.00-0.00); Immature Granulocyte Percent A 0.6 % (0.0-0.0); Lymphocytes Absolute Auto 0.63 K/mm3 (1.10-4.50); Lymphocytes Percent Auto 5.7 % (18.0-42.0); Mean Corpuscular Hemoglobin 30.9 pg (27.0-31.0); Mean Corpuscular Volume 90.7 fL (78.0-102.0); Mean Platelet Volume 8.7 fl (8.7-11.0); Monocytes Absolute Auto 0.75 K/mm3 (0.10-0.90); Monocytes Percent Auto 6.8 % (2.0-11.0); Neutrophils Absolute Auto 9.6 K/mm3 (1.7-7.2); Neutrophils Percent Auto 86.7 % (50.0-70.0); Platelet Count Result 207 K/mm3 (150-420); Red Blood Count 4.86 M/mm3 (4.70-6.10); Red Cell Distribution Width 13.4 % (11.6-14.4); White Blood Count 11.1 K/mm3 (4.8-10.8)
--- NOTE | 2021-07-30 13:13 | ED.CHESTPAIN ---
HPI - Chest Pain General Chief Complaint: Chest Pain Stated Complaint: ambulance Source: patient and EMS Mode of arrival: EMS Limitations: physical limitation History of Present Illness HPI narrative: this 66-year-old gentleman with frequent ER visits lives at home has a history of COPD and a lung cancer continues to smoke, today the patient says he developed chest discomfort chest wall pain is reproducible with shortness of breath but is resting comfortably currently no chest pain. There is no cough patient has some wheezing, no nausea vomiting no abdominal pain no fever chills. MD complaint: chest pain Onset (ago): hour(s) Timing of current episode: episodic Prior episodes: Yes Onset: during rest Pain location: substernal Pain radiation: none Severity: mild ( has resolved) Quality: aching Exacerbating factors: inspiration Related Data Home Medications Medication Instructions Recorded Confirmed enalapril maleate 20 mg PO DAILY 02/15/20 07/28/21 gabapentin 800 mg PO TID 04/23/21 07/28/21 Allergies Allergy/AdvReac Type Severity Reaction Status Date / Time No Known Allergies Allergy Verified 07/28/21 09:29 Review of Systems Review of Systems: All systems reviewed & are unremarkable except as noted in HPI and below PMFSH Past Medical History Medical History COPD (chronic obstructive pulmonary disease) Lung cancer Parkinsons Pleurisy without effusion Family History Family History Mother Chronic obstructive pulmonary disease Father Chronic obstructive pulmonary disease Social History Social History Smoking packs per day: 1.5 Smoking cigarettes per day: 30.0 Years smoked: 40 Smoking pack-years: 60.00 Smoking status: Current every day smoker Tobacco type: cigarettes Second hand tobacco smoke exposure: Yes Alcohol intake: former Drinks per week: 1 Substance use: unknown Substance use type: does not use Gender identity (if verbalized by the patient): Male Sexual Orientation (if Verbalized by the Patient): Straight or Heterosexual Spiritual care concerns: No Exam Const: General: no acute distress and alert Orientation/consciousness: patient oriented x3 HENMT: Head: normal to inspection Eyes: Conjunctivae: conjunctivae normal Pupils: Equal, round and reactive pupils present EOM: EOMs intact bilaterally Neck: Neck: normal visual inspection, no lymphadenopathy and no meningeal signs Chest: Chest palpation & inspection: normal inspection of the chest Resp: Effort & Inspection: normal respiratory effort Auscultation: wheezes and diminished lung sounds Cardio: Rate: regular rate Rhythm: regular rhythm GI: Auscultation: normal bowel sounds : Testes: Testes normal Urinary Catheter: Urinary Catheter: patent and draining Back/Spine/Pelvis: Back: no CVA tenderness Skin: General skin exam: normal color Rashes: no rashes Neuro: General: patient oriented x3 and moves all extremities Extrem: General: normal to inspection and no pedal edema Psych: Mental Status: mental status grossly normal Affect: normal affect Course Course Emergency Course: labs reviewed with patient chest x-ray was reviewed shows no acute pulmonary findings does show stable right cavitary mass consistent with cancer, EKG is normal sinus rhythm the rate of 88 beats per minute labs reviewed with patient and his BNP was elevated at 800 will give the patient a dose of IM Lasix. Patient received DuoNebs and IM Depo-Medrol. MDM - Chest Pain Lab Data Result diagrams: 07/30/21 12:59 07/30/21 12:59 Labs: Lab Results 07/30/21 07/30/21 07/30/21 Range/Units 12:59 12:59 12:59 WBC 11.1 H (4.8-10.8) K/mm3 RBC 4.86 (4.70-6.10) M/mm3 Hgb 15.0 (12.4-15.3) g/dL Hct 44.1 (37.0-46.0) %
[2021-07-30 13:18] LABS: Partial Thromboplastin Time 24.6 SEC (23.90-30.70); Prothrombin Time 10.3 Seconds (9.50-12.10)
[2021-07-30 13:25] LABS: Alanine Aminotransferase 26 U/L (16-63); Albumin Level 3.2 g/dL (3.4-5.0); Alkaline Phosphatase 96 U/L (46-116); Anion Gap 5 mmol/L (8-16); Aspartate Amino Transferase 11 U/L (15-37); Bilirubin,Total 1.3 mg/dL (0.00-1.00); Blood Urea Nitrogen 17 mg/dL (7-18); Calcium 8.5 mg/dL (8.5-10.1); Carbon Dioxide 32 mmol/L (21-32); Chloride 97 mmol/L (98-108); Estimated Glomerular Filt Rate > 60; Glucose 178 mg/dL (70-99); Magnesium 2.3 mg/dL (1.8-2.4); NT Pro B Type Natriuretic Pept 898 pg/mL (0-125); Osmolality Calculated 283 mOsm/kg (285-295); Sodium 134 mmol/L (136-145); Troponin I 15.7 ng/L (0.00-60.4)
[2021-07-30] MEDS: IPRATROPIUM 0.5 MG/ALBUTEROL SULFATE 2.5 MG AMPUL.NEB 3 ML INHALATION (13:30)
[2021-07-30] MEDS: methylPREDNISolone ACETATE 40 MG/ML VIAL 80 MG IM (13:57)
[2021-07-30 15:10] VITALS: BP 112/83; PULSE 87; RESP 20; TEMP 36.9; O2SAT 97
[2021-07-30 15:18] VITALS: PULSE 91
--- NOTE | 2021-07-30 16:02 | PC.NURSE ---
call to [facility] for bls transfer back to residence. awaiting call back
--- NOTE | 2021-07-30 16:05 | PC.NURSE ---
call back from [facility] ambulance director. declined bls transfer back to residence for pt. states pt doesnt need ambulance to take him home just because he needs oxygen, stated only would take him if he was guaranteed payment. explained i can not guarantee payment from hospital for transfer to residence, i can only fill out medical necessity form for pt as dr hill instructs me to do. [facility] declined transfer. [id number] call to [facility] for bls transfer back to residence, spoke with esperanza , states extended time due to prior scheduled transfer but can take. will call with stephen.
--- NOTE | 2021-07-30 17:48 | PC.NURSE ---
pt in wheelchair with oxygen on , awaiting bls transfer home with [facility]. food tray given as requested.
--- NOTE | 2021-07-30 18:40 | PC.NURSE ---
[facility] crew here, pt loaded and departed with ems. to go home. alert and stable.
== END 2021-07-30 18:42 | disposition home or self-care (01) ==
PROVIDERS: Emergency Provider Emergency Medicine; PCP Physician Assistant
DX: R07.89 Other chest pain (principal); J44.9 Chronic obstructive pulmonary disease, unspecified; R06.2 Wheezing; Z85.118 Personal history of other malignant neoplasm of bronchus and lung; F17.200 Nicotine dependence, unspecified, uncomplicated
CPT/HCPCS: 36415; 36600; 71045; 80053; 82805; 83735; 83880; 84484; 85025; 85610; 85730; 93005; 96372; 99284; J1030; J1940

== ENCOUNTER 2021-07-31 15:59 | Inpatient (IN) | payer MEDICARE, MEDICAID, SELFPAY ==
--- NOTE | ~2021-07-31 | XR_ITS ---
EXAMINATION: XR chest 1V portable DATE: 07/31/2021 16:40 INDICATION: Lung cancer. Shortness of breath. TECHNIQUE: frontal view of the chest was obtained. COMPARISON: Chest radiograph dated 07/30/[address] dated 06/25/2021 FINDINGS: 3.8 cm thick-walled cavitary mass at the medial left lower lobe consistent with primary bronchogenic carcinoma. No new airspace opacities, pulmonary edema, pleural effusion or pneumothorax. Heart size i s normal. Multiple old bilateral rib fractures. This includes a more recent healing anterior right fo urth rib fracture resulting the nodular opacity projecting lateral to the right hilum. IMPRESSION: 1. 3.8 cm thick-walled cavitary left lower lobe mass consistent with primary bronchogenic carcinoma. Reviewed, dictated and finalized at location A. IMPRESSION: 1. 3.8 cm thick-walled cavitary left lower lobe mass consistent with primary br onchogenic carcinoma.
[2021-07-31 16:05] VITALS: BP 154/99; PULSE 81; PULSE 90; RESP 24; TEMP 36.2; O2SAT 100; O2SAT 94
--- NOTE | 2021-07-31 16:10 | ECG_ITS ---
Measurements Intervals [place] Rate: 89 P: 78 SD: 158 QRS: 60 QRSD: 86 T: 67 QT: 330 QTc: 403 Interpretive Statements SINUS RHYTHM COMPARED TO ECG 07/30/2021 12:55:24 NO SIGNIFICANT CHANGES Electronically Signed On 07-31-2021 17:05:08 CDT by Carolina Justice M.D.
[2021-07-31 16:31] LABS: Basophils Absolute Auto 0.01 K/mm3 (0.00-0.10); Basophils Percent Auto 0.1 % (0.0-1.0); Eosinophils Absolute Auto 0.01 K/mm3 (0.02-0.50); Eosinophils Percent Auto 0.1 % (1.0-6.0); Hematocrit 43.3 % (37.0-46.0); Hemoglobin 14.8 g/dL (12.4-15.3); Immature Granulocyte Absolute 0.07 K/mm3 (0.00-0.00); Immature Granulocyte Percent A 0.5 % (0.0-0.0); Lymphocytes Absolute Auto 1.61 K/mm3 (1.10-4.50); Lymphocytes Percent Auto 12.2 % (18.0-42.0); Mean Corpuscular HGB Conc 34.2 g/dL (32.0-36.0); Mean Corpuscular Hemoglobin 31.2 pg (27.0-31.0); Mean Corpuscular Volume 91.2 fL (78.0-102.0); Mean Platelet Volume 9.3 fl (8.7-11.0); Monocytes Absolute Auto 0.88 K/mm3 (0.10-0.90); Monocytes Percent Auto 6.7 % (2.0-11.0); Neutrophils Absolute Auto 10.6 K/mm3 (1.7-7.2); Neutrophils Percent Auto 80.4 % (50.0-70.0); Platelet Count Result 198 K/mm3 (150-420); Red Blood Count 4.75 M/mm3 (4.70-6.10); Red Cell Distribution Width 13.4 % (11.6-14.4); White Blood Count 13.2 K/mm3 (4.8-10.8)
[2021-07-31 16:31] LABS: Base Excess ABG 5.3 mmol/L (0-2); Device NASAL CANNULA; HCO3 ABG 29.8 mmol/L (23-29); Modified Allen's Test Pass; Oxygen Content ABG 19.6 %vol (16.0-22.0); Oxygen Saturation ABG 96.4 % (95-97); Oxyhemoglobin 92.3 % (94-100); PCO2 ABG 43.3 mmHg (35-45); PO2 ABG 82.7 mmHg (75-85); Site Drawn RIGHT RADIAL; Total Hemoglobin 15.1 g/dL (12.0-18.0); pH ABG 7.46 (7.35-7.45)
--- NOTE | 2021-07-31 16:37 | ED.SOB ---
HPI - SOB/Dyspnea General Chief Complaint: Shortness of Breath/Dyspnea Stated Complaint: SOB Time Seen by Provider: 07/31/21 16:03 Source: patient, EMS and RN notes reviewed Mode of arrival: EMS Limitations: no limitations History of Present Illness MD elicited complaint: shortness of breath and asthma attack Pertinent past history: COPD Onset (ago): hour(s) (3) Context: other (several recent ED visits for SOB episodes) Timing: progressively worsening Severity: mild Exacerbating factors: smoke Relieving factors: nothing Known history of: COPD Associated symptoms: wheezing Treatment prior to arrival: none Related Data Home Medications Medication Instructions Recorded Confirmed enalapril maleate 20 mg PO DAILY 02/15/20 07/31/21 gabapentin 800 mg PO TID 04/23/21 07/31/21 Allergies Allergy/AdvReac Type Severity Reaction Status Date / Time No Known Allergies Allergy Verified 07/28/21 09:29 Review of Systems Review of Systems: All systems reviewed & are unremarkable except as noted in HPI and below Respiratory: Respiratory: Reports dyspnea and Reports wheezing PMFSH Past Medical History Medical History COPD (chronic obstructive pulmonary disease) Lung cancer Parkinsons Pleurisy without effusion Family History Family History Mother Chronic obstructive pulmonary disease Father Chronic obstructive pulmonary disease Social History Social History Smoking packs per day: 1.5 Smoking cigarettes per day: 30.0 Years smoked: 40 Smoking pack-years: 60.00 Smoking status: Current every day smoker Tobacco type: cigarettes Second hand tobacco smoke exposure: Yes Alcohol intake: former Drinks per week: 1 Substance use: unknown Substance use type: does not use Gender identity (if verbalized by the patient): Male Sexual Orientation (if Verbalized by the Patient): Straight or Heterosexual Spiritual care concerns: No Exam Const: General: no acute distress and alert Orientation/consciousness: patient oriented x3 Limitations: no limitations HENMT: Ears: external ears normal, TM's normal bilaterally and EAC's normal General nose exam: Normal external nose present and Normal nares present Face and sinus: normal facial exam and sinuses nontender Mouth: Yes moist mucous membranes Throat: posterior oropharynx normal Eyes: Pupils: Equal, round and reactive pupils present EOM: EOMs intact bilaterally Neck: Neck: normal visual inspection and no lymphadenopathy Chest: Chest palpation & inspection: normal inspection of the chest Resp: Effort & Inspection: normal respiratory effort and tachypneic Auscultation: rhonchi and wheezes Cardio: Rate: regular rate Rhythm: regular rhythm GI: GI Palp: Yes Soft to palpation and No Tenderness to palpation present (GI) Auscultation: normal bowel sounds : General: Yes bladder normal to palpation and Yes no CVA tenderness Male General Exam: Yes normal external exam Testes: Testes normal Back/Spine/Pelvis: Back: no CVA tenderness Skin: General skin exam: normal color Rashes: no rashes Neuro: General: patient oriented x3, moves all extremities, no meningeal signs, no focal motor deficits and CN's II-XI intact bilaterally Extrem: General: normal to inspection and no pedal edema Psych: Mental Status: mental status grossly normal Affect: normal affect and Anxious affect present Attitude: cooperative Thought content: Yes Normal thought content present Course Course Emergency Course: Pt was stable in the ED. less SOB Reevaluation(s) Reevaluation #1: vss Date: 07/31/21 Vital Signs Vital signs: Vital Signs Temperature 36.2 C L 07/31/21 16:05 Pulse Rate 90 07/31/21 16:05 Respiratory Rate 24 H 07/31/21 16:05 Blood Pressure 154/99 H 07/31/21 16:05 Pulse Oximetry 100
[2021-07-31] MEDS: methylPREDNISolone SOD SUCC 125 MG VIAL IM (16:43)
[2021-07-31] MEDS: ALBUTEROL SULFATE (*SP) INHALER 4 PUFF INHALATION (16:43)
[2021-07-31] MEDS: UMECLIDINIUM BROMIDE 62.5 MCG ELLIPTA 1 PUFF (16:45)
[2021-07-31 16:52] LABS: Lactic Acid Reflex 1.2 mmol/L (0.4-2.0)
[2021-07-31 16:54] LABS: Alanine Aminotransferase 23 U/L (16-63); Albumin Level 3.2 g/dL (3.4-5.0); Alkaline Phosphatase 91 U/L (46-116); Anion Gap 5 mmol/L (8-16); Aspartate Amino Transferase 10 U/L (15-37); Bilirubin,Total 1.1 mg/dL (0.00-1.00); Blood Urea Nitrogen 13 mg/dL (7-18); Calcium 8.6 mg/dL (8.5-10.1); Carbon Dioxide 31 mmol/L (21-32); Chloride 98 mmol/L (98-108); Estimated CRCL calculation 96 ml/min; Estimated Glomerular Filt Rate > 60; Glucose 127 mg/dL (70-99); NT Pro B Type Natriuretic Pept 582 pg/mL (0-125); Osmolality Calculated 280 mOsm/kg (285-295); Potassium 4.1 mmol/L (3.5-5.1); Sodium 134 mmol/L (136-145); Troponin I 12.1 ng/L (0.00-60.4)
--- NOTE | 2021-07-31 17:41 | PC.NURSE ---
1700 sandwich, cottage cheese , fruit, applesauce , soda given to pt. pt attempted to feed self. pt continues with tremors to bilateral hands to where he is unable to feed himself without spilling food all over himself or the floor. pt asked this nurse to help him eat. pt fed meal per nurse. ate 100%. pt very appreciate for help to be able to eat.
--- NOTE | 2021-07-31 18:07 | PC.NURSE ---
while feeding pt, discussed long-term placement. pt voiced he wants to do the right thing. states he doesnt want to give up his apartment, he has someone that comes in to help clean and do laundry, occasionally she might cook something. pt states she needs to get there because he needs things done. explained if went to long-term, he would have someone there to help him 24 hours a day for anything that he may need. ask pt if he would be agreeable with staying at hospital and speaking with director social service/renal case manager on sunday morning about some options to help him to be properly taken care of. pt states he would not have a problem with that. pt has had repeated visits to the er . he has had 16 er visits for the 2021 year in which he has had 5 visits in the past 1 week
[2021-07-31 19:00] VITALS: O2SAT 93
[2021-07-31 19:08] VITALS: PULSE 84; RESP 20; O2SAT 95
[2021-07-31 19:20] VITALS: BP 136/88; PULSE 82; RESP 22; TEMP 36.6; O2SAT 96
[2021-07-31 19:50] VITALS: BP 152/94; PULSE 84; RESP 20; TEMP 36.7; O2SAT 95
[2021-07-31] MEDS: GABAPENTIN 400 MG CAPSULE 800 MG PO (19:58)
[2021-07-31] MEDS: ALBUTEROL SULFATE (*SP) INHALER 2 PUFF INHALATION (19:59)
--- NOTE | 2021-07-31 20:16 | ADMGEN ---
This patient, Andrez Owens, was admitted to 2nd Floor Room 204-1. Patient oriented to hospital policies and general routines including ID bracelet, bed and alarms, visiting hours, pain management, procedures, bathroom and other care routines, personal items, smoking policy, room service/diet, and visiting hours. Information on how to activate the Rapid Response Team has been discussed. Patient are encouraged to report perceived risks to care and to ask questions if they do not understand what they are told or what they should do.
[2021-07-31 20:19] VITALS: BMI 25.8
--- NOTE | 2021-07-31 20:30 | PC.NURSE ---
Patient in bed. Gabapentin given. Patient unable to hold medicine cup to put pills in his mouth due to his tremors. Patient did hold his cup while taking a drink but had trouble because of his tremors. One of the first things patient did was asked for food, telling this nurse that he hadn't eaten today. This nurse referred to ER nurses note where that nurse listed all patient had eaten at dinner time, with nurses assistance. Reminded patient he had eaten dinner in ER and he then said he would be okay with a snack later. O2 on @ 2 lpm/nc. Respirations even and unlabored. Patient denies pain/complaints/needs @ this time. No distress noted. Call light in reach.
--- NOTE | 2021-07-31 22:00 | PC.NURSE ---
Patient fed a fruit cup and some cottage cheese for a HS snack. Patient unable to feed himself due to his tremors. This nurse talked with patient about him not being able to care for himself @ home and discussed the benefits of going to a [facility] where he could get assistance with the things he needs. Patient said the nurse in ER also discussed going to a [facility] with him. Patient denies pain/complaints/needs @ this time. O2 continues @ 2 lpm/nc. Respirations even and unlabored. No distress noted. Call light in reach.
[2021-08-01] VITALS: BP 117/82; PULSE 84; RESP 20; TEMP 36.6; O2SAT 93
--- NOTE | 2021-08-01 00:10 | PC.NURSE ---
Patient ambulates to/from bathroom with stand by assist with slightly unsteady gait. Patient took O2 off to walk to bathroom. No distress noted. No shortness of breath noted. Patient denies pain/complaints/other needs @ this time. Call light in reach.
[2021-08-01] MEDS: ALBUTEROL SULFATE (*SP) INHALER 2 PUFF INHALATION ×2 (05:54→10:43)
[2021-08-01] MEDS: BUDESONIDE/FORMOTEROL (*SP) 160-4.5 MCG 6 GM INH 2 PUFF INHALATION (05:54)
[2021-08-01 08:00] VITALS: BP 161/97; PULSE 79; RESP 18; TEMP 37.1; O2SAT 96
[2021-08-01] MEDS: ENALAPRIL MALEATE 5 MG TABLET 20 MG PO (08:14)
[2021-08-01] MEDS: GABAPENTIN 400 MG CAPSULE 800 MG PO ×2 (08:14→12:54)
[2021-08-01] MEDS: PANTOPRAZOLE SOD SESQUIHYDRATE 20 MG TAB PO (08:16)
[2021-08-01] MEDS: IBUPROFEN 400 MG TABLET 800 MG PO ×2 (08:16→12:55)
[2021-08-01] MEDS: predniSONE 20 MG TABLET PO (08:16)
[2021-08-01] MEDS: FUROSEMIDE 20 MG TABLET PO (08:17)
--- NOTE | 2021-08-01 08:31 | PM.SD2 ---
Same Day Admit/Disch: HPI History of Present Illness Chief complaint: COPD BRONCHITIS LUNG CANCER Narrative: Andrez Owens is a 66 year old male that is well-known to our establishment patient being admitted for self-neglect due to worsening Parkinson's. patient has a past medical history of COPD, lung cancer, Parkinson's and Pleurisy without effusion. Patient has presented to our emergency department 12 times since the beginning of the year.(06/03, 06/19,06/25,07/03,07/10,07/18,07/25,07/26,07/27,07/28,07/30 and 08/01). Patient admits that he is unable to give himself nebulizer treatments and feed himself due to his excessive tremoring. Our care coordination had arranged for patient to follow-up with his primary physician and talk to his home health service to arrange for transportation. Unfortunately patient was unable to make appointment because he was here at ED. the aging department has been notified. Patient refuses to go to a senior care even though he cannot care for himself. Patient comes to our emergency department nearly every day for a nebulizer treatment patient chief complaint either chest pain or shortness of breath. During this assessment I explained to the patient that he needs placement due to self-neglect. Patient once again refuses also informed patient that aging is following him and at some point they may take legal action that he will no longer have the authority to make decisions on his healthcare. Patient is being discharged today medically he is stable his labs are actually better than the previous day which were not bad either. Patient notes that he is sick and that we are kicking him out and that the ED doctor said that he was sick. We will complete a Mini-Mental on this patient and I will also contact his primary care physician to see if we can possibly get him a consult for neurology to be placed on Parkinson's disease medication. Patient is not happy with me because he believes that I am kicking him out. [facility] Past Medical History Medical History COPD (chronic obstructive pulmonary disease) Lung cancer Parkinsons Pleurisy without effusion Family History Family History Mother Chronic obstructive pulmonary disease Father Chronic obstructive pulmonary disease Social History Social History Smoking packs per day: 1 Smoking cigarettes per day: 20.0 Years smoked: 50 Smoking pack-years: 50.00 Smoking status: Former smoker Tobacco type: cigarettes Second hand tobacco smoke exposure: Yes Alcohol intake: former Drinks per week: 1 Substance use: former Substance use type: does not use Gender identity (if verbalized by the patient): Male Sexual Orientation (if Verbalized by the Patient): Straight or Heterosexual Spiritual care concerns: No Same Day Admit/Disch: Med Pre-admit Medications Home Medications Medication Instructions Recorded Confirmed Type enalapril maleate 20 mg PO DAILY 02/15/20 07/31/21 History gabapentin 800 mg PO TID 04/23/21 07/31/21 History montelukast 10 mg PO DAILY #60 tablet 04/24/21 07/31/21 Rx budesonide-formoterol [Symbicort] 2 puff INHALATION BID #10.2 g 06/26/21 07/31/21 Rx prednisone 20 mg PO DAILY #60 tablet 07/19/21 07/31/21 Rx Spiriva Respimat 2 puff INHALATION QAM #4 g 07/26/21 07/31/21 Rx albuterol sulfate 2 puff INHALATION QID #8.5 g 07/26/21 07/31/21 Rx ibuprofen 800 mg PO TID #20 tablet 07/26/21 07/31/21 Rx methylprednisolone [Medrol (Sergio)] See Rx Instructions .ROUTE 07/26/21 07/31/21 Rx .COMPLEX #21 ea omeprazole magnesium [Prilosec OTC] 20 mg PO BID #20 tablet 07/26/21 07/31/21 Rx furosemide [Lasix] 20 mg PO BID #14 tablet 07/30/21 07/31/21 Rx Exam Narrative: GENERAL: This is a well-nourished, well-developed patient, in no apparent distress. HEAD: normocephalic, atraumatic. EYES: PERRL.
[2021-08-01 09:16] VITALS: PULSE 76; RESP 18; O2SAT 92
[2021-08-01] MEDS: IPRATROPIUM 0.5 MG/ALBUTEROL SULFATE 2.5 MG AMPUL.NEB 3 ML INHALATION (09:16)
[2021-08-01 09:25] VITALS: PULSE 82; RESP 18; O2SAT 99
[2021-08-01 14:00] VITALS: O2SAT 99
--- NOTE | 2021-08-01 14:00 | PC.NURSE ---
Patient discharged to [facility] for transfer. Discharge instructions given to patient. Patient verbalized understanding. Incontinence supplies for 1 day sent home with patient per patient request. Personal belongings returned to patient. Patient able to ambulate to stretcher. O2 required for transfer.
--- NOTE | 2021-08-02 13:20 | PC.NURSE ---
Invalid phone number for discharge call back.
== END 2021-08-01 14:00 | disposition home or self-care (01) | DRG 57 ==
LOC: CHSED 19:15 → CHS2ND 19:16
PROVIDERS: Admitting Provider Internal Medicine; Emergency Provider Emergency Medicine; PCP Physician Assistant; Visit Provider Internal Medicine
DX: J40 Bronchitis, not specified as acute or chronic (principal); G20 Parkinson's disease; C34.90 Malignant neoplasm of unspecified part of unspecified bronchus or lung; C34.32 Malignant neoplasm of lower lobe, left bronchus or lung; J44.9 Chronic obstructive pulmonary disease, unspecified; R09.1 Pleurisy; F17.210 Nicotine dependence, cigarettes, uncomplicated; F09 Unspecified mental disorder due to known physiological condition; Z91.19 Patient's noncompliance with other medical treatment and regimen
CPT/HCPCS: 36415; 36600; 71045; 80053; 82805; 83605; 83880; 84484; 85025; 87040; 93005; 94640; 96365; 96372; 97161; 97165; 99285; A9270; J0696; J2930; J7512

== ENCOUNTER 2021-08-04 22:25 | Observation (INO) | payer MEDICARE, MEDICAID, SELFPAY ==
--- NOTE | ~2021-08-04 | XR_ITS ---
XR chest 1V portable DATE: 08/04/2021 22:45 INDICATION: Central chest pain. History of smoking. TECHNIQUE: Portable upright AP views on 08/04/2021 at 2245 hours COMPARISON: 07/31/2021 portable AP chest FINDINGS: This is a limited portable apical lordotic examination. Approximately 4 cm cavitary lesion is noted in the posterior basilar left lower lobe. The lungs otherwise appear clear. Normal heart size. No pulmonary vascular congestion or pleural effusion or pneumothorax. Aortic arch calcification. Diffuse osteopenia. IMPRESSION: Cavitary mass, left lower lobe; additional pulmonary masses are demonstrated to better ad vantage on June 25, 2021 CT chest examination. Reviewed, dictated and finalized at location A. IMPRESSION: Cavitary mass, left lower lobe; additional pulmonary masses are dem onstrated to better advantage on June 25, 2021 CT chest examination.
[2021-08-04 22:25] VITALS: BP 131/81; PULSE 93; PULSE 94; RESP 24; TEMP 36.4; O2SAT 94
--- NOTE | 2021-08-04 22:29 | ECG_ITS ---
Measurements Intervals [place] Rate: 95 P: 39 [place]: 146 QRS: 36 QRSD: 98 T: 77 QT: 350 QTc: 441 Interpretive Statements SINUS RHYTHM WITH OCCASIONAL SUPRAVENTRICULAR PREMATURE COMPLEXES NONSPECIFIC T-WAVE AFTER COMPARED TO ECG 07/31/2021 15:27:33 NO SIGNIFICANT CHANGES Electronically Signed On 08-05-2021 16:23:59 CDT by Josh Jackson M.D.
[2021-08-04 22:53] LABS: Basophils Absolute Auto 0.02 K/mm3 (0.00-0.10); Basophils Percent Auto 0.2 % (0.0-1.0); Eosinophils Absolute Auto 0.02 K/mm3 (0.02-0.50); Eosinophils Percent Auto 0.2 % (1.0-6.0); Hematocrit 39.4 % (37.0-46.0); Hemoglobin 13.4 g/dL (12.4-15.3); Immature Granulocyte Absolute 0.12 K/mm3 (0.00-0.00); Immature Granulocyte Percent A 1.1 % (0.0-0.0); Lymphocytes Absolute Auto 2.33 K/mm3 (1.10-4.50); Lymphocytes Percent Auto 20.9 % (18.0-42.0); Mean Corpuscular Volume 91.2 fL (78.0-102.0); Monocytes Absolute Auto 0.81 K/mm3 (0.10-0.90); Monocytes Percent Auto 7.3 % (2.0-11.0); Neutrophils Absolute Auto 7.9 K/mm3 (1.7-7.2); Neutrophils Percent Auto 70.3 % (50.0-70.0); Platelet Count Result 190 K/mm3 (150-420); Red Blood Count 4.32 M/mm3 (4.70-6.10); Red Cell Distribution Width 13.3 % (11.6-14.4); White Blood Count 11.2 K/mm3 (4.8-10.8)
--- NOTE | 2021-08-04 23:03 | ED.CHESTPAIN ---
HPI - Chest Pain General Chief Complaint: Chest Pain Stated Complaint: amb Source: patient and EMS History of Present Illness HPI narrative: this is a 66-year-old gentleman that to emergency department via EMS complaining of chest pain that is reproducible has had similar episodes in the past states that it has been ongoing for the last 2 weeks has a history of COPD and and lung cancer, currently O2 sats of 94% on room air patient is afebrile vitals are stable. The patient denies any abdominal pain no fever chills no nausea vomiting. The patient does have a nonproductive cough with shortness of breath. complaint: chest pain ( reproducible) Pertinent past history: other ( history of COPD) Onset (ago): week(s) Timing of current episode: episodic Prior episodes: Yes Onset: during rest Pain location: substernal ( reproducible chest pain) Pain radiation: none Severity: severe Pain scale (0-10): 9 Quality: aching Exacerbating factors: nothing Context: recent illness Treatment prior to arrival: none Related Data Home Medications Medication Instructions Recorded Confirmed enalapril maleate 20 mg PO DAILY 02/15/20 08/04/21 gabapentin 800 mg PO TID 04/23/21 08/04/21 Allergies Allergy/AdvReac Type Severity Reaction Status Date / Time No Known Allergies Allergy Verified 07/28/21 09:29 Review of Systems Review of Systems: All systems reviewed & are unremarkable except as noted in HPI and below PMFSH Past Medical History Medical History COPD (chronic obstructive pulmonary disease) Lung cancer Parkinsons Pleurisy without effusion Family History Family History Mother Chronic obstructive pulmonary disease Father Chronic obstructive pulmonary disease Social History Social History Smoking packs per day: 1 Smoking cigarettes per day: 20.0 Years smoked: 50 Smoking pack-years: 50.00 Smoking status: Former smoker Tobacco type: cigarettes Second hand tobacco smoke exposure: Yes Alcohol intake: former Drinks per week: 1 Substance use: former Substance use type: does not use Gender identity (if verbalized by the patient): Male Sexual Orientation (if Verbalized by the Patient): Straight or Heterosexual Spiritual care concerns: No Exam Const: General: no acute distress Orientation/consciousness: patient oriented x3 HENMT: Head: normal to inspection Eyes: Conjunctivae: conjunctivae normal Pupils: Equal, round and reactive pupils present Neck: Neck: normal visual inspection, no lymphadenopathy and no meningeal signs Chest: Chest palpation & inspection: normal inspection of the chest Resp: Effort & Inspection: normal respiratory effort Auscultation: rhonchi and diminished lung sounds Cardio: Rate: regular rate Rhythm: regular rhythm GI: Auscultation: normal bowel sounds Back/Spine/Pelvis: Back: no CVA tenderness Skin: General skin exam: normal color Rashes: no rashes Neuro: General: patient oriented x3, moves all extremities, no meningeal signs and no focal motor deficits Extrem: General: normal to inspection and no pedal edema Psych: Mental Status: mental status grossly normal Affect: normal affect and Anxious affect present Attitude: cooperative Course Course Emergency Course: Patient was brought in by EMS x-ray reviewed with patient EKG was reviewed with patient as well as blood work the patient received Toradol and nebulizer treatment. patient sodium level was reviewed and had dropped from 06/19 4 at discharge 3 days ago and currently 128, his chest x-ray is essentially the same but has some limited air movement and will add a dose of Levaquin IV as well as patient received DuoNebs and Solu-Medrol as well as 0.5L of normal saline. Vital Signs Vital signs: Vital Signs Temperature 36.4 C L 08/04/21 22
[2021-08-04 23:08] LABS: INR 0.9; Partial Thromboplastin Time 25.4 SEC (23.90-30.70); Prothrombin Time 9.5 Seconds (9.50-12.10)
[2021-08-04] MEDS: KETOROLAC 30 MG/ML VIAL (*BKC) IV PUSH (23:14)
[2021-08-04 23:15] LABS: Alanine Aminotransferase 27 U/L (16-63); Alkaline Phosphatase 94 U/L (46-116); Anion Gap 10 mmol/L (8-16); Aspartate Amino Transferase < 10 U/L (15-37); Bilirubin,Total 0.6 mg/dL (0.00-1.00); Blood Urea Nitrogen 13 mg/dL (7-18); Calcium 8.3 mg/dL (8.5-10.1); Carbon Dioxide 25 mmol/L (21-32); Chloride 93 mmol/L (98-108); Estimated CRCL calculation 70 ml/min; Estimated Glomerular Filt Rate > 60; Glucose 108 mg/dL (70-99); Lipase 106 U/L (73-393); NT Pro B Type Natriuretic Pept 455 pg/mL (0-125); Osmolality Calculated 267 mOsm/kg (285-295); Potassium 3.9 mmol/L (3.5-5.1); Sodium 128 mmol/L (136-145); Total Protein 5.9 g/dL (6.4-8.2); Troponin I 13.7 ng/L (0.00-60.4)
[2021-08-04] MEDS: IPRATROPIUM 0.5 MG/ALBUTEROL SULFATE 2.5 MG AMPUL.NEB 3 ML INHALATION (23:18)
[2021-08-04 23:19] VITALS: PULSE 90; RESP 19; O2SAT 93
[2021-08-04 23:22] VITALS: PULSE 89; RESP 20; O2SAT 94
[2021-08-04] MEDS: SODIUM CHLORIDE 0.9% IV 500 ML 999 ML IV CONT (23:48)
[2021-08-04] MEDS: levoFLOXacin 500 MG/D5W 100 ML 500 MG/100 ML BAG 100 MG IVPB (23:50)
[2021-08-04] MEDS: methylPREDNISolone SOD SUCC 125 MG VIAL IV PUSH (23:51)
[2021-08-05] VITALS (8 sets, daily range): BP systolic 128–154; BP diastolic 79–95; PULSE 88–105; RESP 16–21; TEMP 35.9–36.8; O2SAT 90–96; BMI 32.9
--- NOTE | 2021-08-05 00:12 | PC.NURSE ---
Dr Mina spoke c ADONAY Lawton and orders obtained for 23 hr obs. admission. SCOUT Hogan notified on floor for bed assignemnt.
--- NOTE | 2021-08-05 01:10 | ADMGEN ---
This patient, Andrez Owens, was admitted to 2nd Floor Room 209-1. Patient/family oriented to hospital policies and general routines including ID bracelet, bed and alarms, visiting hours, pain management, procedures, bathroom and other care routines, personal items, smoking policy, room service/diet, and visiting hours. Information on how to activate the Rapid Response Team has been discussed. Patient/Family are encouraged to report perceived risks to care and to ask questions if they do not understand what they are told or what they should do.
--- NOTE | 2021-08-05 03:20 | PC.NURSE ---
Pt was found standing by the bedside voiding on the floor. Once this magazine writer walked into the room the pt stopped and stated he messed up. Pt then sat back down in bed. This magazine writer asked the pt why he did not use his call light to notify the nurses station he needed to void, and why he voided onto the floor. Andrez stated he did not know why he did this. Pt was at first apologetic then became confrontational. Pt's floor was cleaned and pt was instructed to remove his urine soaked socks which he did after reinforcement. Pt was asked if he knew the month and location he was at which aggressively answered incorrectly. Pt then stated he felt like he needed to be put on oxygen multiple times. This magazine writer checked his spO2 levels which have been above 90% q time taken. A gauze pad and tape were applied to the pt's posterior neck to prevent pt from further scratching since the location was beginning to bleed from his persistent scratching. Call light is within reach of pt and door open per pt request.
--- NOTE | 2021-08-05 03:46 | PC.NURSE ---
Sonia Moore NP, called with new orders for pt. Orders received and noted.
[2021-08-05] MEDS: SODIUM CHLORIDE 0.9% IV 1,000 ML 100 ML (04:18)
[2021-08-05] MEDS: SODIUM CHLORIDE 0.9% IV 1,000 ML 100 ML IV CONT (04:20)
[2021-08-05 05:25] LABS: Amphetamine Screen Urine Negative (Negative); Barbiturate Screen Urine Negative (Negative); Benzodiazepines Screen Urine Negative (Negative); Cannabinoid Screen Urine Negative (Negative); Cocaine Screen Urine Negative (Negative); Methadone Screen Urine Negative (Negative); Opiate Screen Urine Negative (Negative); Phencyclidine Screen Urine Negative (Negative)
[2021-08-05] MEDS: IPRATROPIUM 0.5 MG/ALBUTEROL SULFATE 2.5 MG AMPUL.NEB 3 ML INHALATION (07:24)
[2021-08-05 07:45] LABS: Hematocrit 37.3 % (37.0-46.0); Hemoglobin 12.8 g/dL (12.4-15.3); Mean Corpuscular HGB Conc 34.3 g/dL (32.0-36.0); Mean Corpuscular Hemoglobin 31.1 pg (27.0-31.0); Mean Corpuscular Volume 90.8 fL (78.0-102.0); Mean Platelet Volume 8.9 fl (8.7-11.0); Platelet Count Result 169 K/mm3 (150-420); Red Blood Count 4.11 M/mm3 (4.70-6.10); Red Cell Distribution Width 13.3 % (11.6-14.4); White Blood Count 5.4 K/mm3 (4.8-10.8)
[2021-08-05 07:51] LABS: Anion Gap 6 mmol/L (8-16); Blood Urea Nitrogen 18 mg/dL (7-18); Calcium 8.2 mg/dL (8.5-10.1); Carbon Dioxide 28 mmol/L (21-32); Chloride 97 mmol/L (98-108); Estimated CRCL calculation 74 ml/min; Estimated Glomerular Filt Rate > 60; Glucose 242 mg/dL (70-99); Osmolality Calculated 281 mOsm/kg (285-295); Potassium 4.5 mmol/L (3.5-5.1); Sodium 131 mmol/L (136-145)
[2021-08-05] MEDS: LORATADINE 10 MG TABLET PO (09:14)
--- NOTE | 2021-08-05 11:21 | PC.NURSE ---
[facility] called to transfer patient home.
--- NOTE | 2021-08-05 11:56 | PC.NURSE ---
Pt discharged to home. Transported by [facility] per [facility]. Pt given discharge instructions per nurse. Medications reviewed with pt and LAC IV removed. Site covered with a band aid. Lunch sent home with pt.
--- NOTE | 2021-08-05 13:26 | PM.SD2 ---
Same Day Admit/Disch: HPI History of Present Illness Chief complaint: COPD Exacerbation/hyponatremia Narrative: Andrez Owens is a 66 year old male that is well known to policy writer sales he has come in with shortness of breath and not feeling well. Patient has a know history of a lung mass and a need to be treated by oncology although he has missed several of his appointment with his doctor. Patient has not taken his breathing treatment or his medication . Mr. Owens currently when I arrived is laying in the bed without his oxygen and denies any shortness of breath. Patient complaint at this time is the food is taking to long to get to him. I personally sat down to have a conversation with patient to see what I was missing as he is in need to see the oncologist if he truly would like treatment for the lung cancer that I have reviewed one of his many CT scans from the last month that shows that he now has additional masses. I discussed with patient his will to live and question if he was just ready to . Patient informs me that he is wanting to live. I did discuss with patient that there are no oncologist here and it it vital that he keep his PCP, Oncologist, Music Librarian and multimedia artist appointment that he has missed. Mr. Owens has been made aware of being discharged as he was admitted with hyponatremia of 128 and he is currently 131. Patient does not give reason as to why he does not take medication or his breathing treatments. I did explain to the patient we could find placement for and he has declined as well as we would be reporting him to the department of aging as he may not be able to care for himself as he has been in the emergency room 14x in the last 30 days. Patient vitals upon discharge was 98.2 88-20-95% on room air ambulance came to pick him and I encourage patient to use his nebulizer and put his oxygen on . FORMERLY [facility], [facility] Past Medical History Medical History COPD (chronic obstructive pulmonary disease) Lung cancer Parkinsons Pleurisy without effusion Family History Family History Mother Chronic obstructive pulmonary disease Heart disease Father Chronic obstructive pulmonary disease Heart disease Social History Social History Smoking packs per day: 1 Smoking cigarettes per day: 20.0 Years smoked: 50 Smoking pack-years: 50.00 Smoking status: Current some day smoker Tobacco type: cigarettes Second hand tobacco smoke exposure: Yes Alcohol intake: current Drinks per week: 1 Substance use: never Substance use type: does not use Gender identity (if verbalized by the patient): Male Sexual Orientation (if Verbalized by the Patient): Straight or Heterosexual Spiritual care concerns: No Same Day Admit/Disch: Med Pre-admit Medications Home Medications Medication Instructions Recorded Confirmed Type enalapril maleate 20 mg PO DAILY 02/15/20 08/06/21 History gabapentin 800 mg PO TID 04/23/21 08/06/21 History montelukast 10 mg PO DAILY #60 tablet 04/24/21 08/06/21 Rx budesonide-formoterol [Symbicort] 2 puff INHALATION BID #10.2 g 06/26/21 08/06/21 Rx prednisone 20 mg PO DAILY #60 tablet 07/19/21 08/06/21 Rx Spiriva Respimat 2 puff INHALATION QAM #4 g 07/26/21 08/06/21 Rx albuterol sulfate 2 puff INHALATION QID #8.5 g 07/26/21 08/06/21 Rx ibuprofen 800 mg PO TID #20 tablet 07/26/21 08/06/21 Rx methylprednisolone [Medrol (Sergio)] See Rx Instructions .ROUTE 07/26/21 08/06/21 Rx .COMPLEX #21 ea omeprazole magnesium [Prilosec OTC] 20 mg PO BID #20 tablet 07/26/21 08/06/21 Rx furosemide [Lasix] 20 mg PO BID #14 tablet 07/30/21 08/06/21 Rx Exam Narrative: GENERAL:Well-appearing, disheleved HEAD:Normocephalic, atraumatic. EYES: PERRLA and EOMI. ENT: Nares clear, no rhinorrhea or epistaxis. Mucous membranes moist. NECK: Supple. CHEST: Couse scatt
--- NOTE | 2021-08-08 11:17 | PC.NURSE ---
Invalid phone number for discharge call back.
== END 2021-08-05 11:50 | disposition home or self-care (01) ==
LOC: CHSED 08-05 00:08 → CHS2ND 08-05 06:23
PROVIDERS: Nurse Practitioner Family; Admitting Provider Internal Medicine; Emergency Provider Emergency Medicine; PCP Physician Assistant; Visit Provider Internal Medicine
DX: E87.1 Hypo-osmolality and hyponatremia (principal); J44.1 Chronic obstructive pulmonary disease with (acute) exacerbation; R07.9 Chest pain, unspecified; C34.90 Malignant neoplasm of unspecified part of unspecified bronchus or lung; G20 Parkinson's disease; Z91.19 Patient's noncompliance with other medical treatment and regimen
CPT/HCPCS: 36415; 71045; 80048; 80053; 80307; 83690; 83880; 84484; 85025; 85027; 85610; 85730; 93005; 94640; 96361; 96365; 96375; 99285; A9270; G0378; J1885; J1956; J2930; J7030; J7040

== ENCOUNTER 2021-08-06 09:56 | Emergency (ER) | payer MEDICARE, MEDICAID, SELFPAY ==
--- NOTE | ~2021-08-06 | XR_ITS ---
EXAMINATION: XR chest 1V portable 08/06/2021 10:39 INDICATION: Shortness of breath PROCEDURE: AP portable chest COMPARISON: Comparison to multiple prior studies sequentially, with oldest reviewed study dated 07/28. FINDINGS: There are bilateral breast nodules/masses without significant change from prior examination , suspicious for metastatic disease. The cardiomediastinal silhouette is within normal limits. There are no pleural effusions. There is no pneumothorax suspected. IMPRESSION: 1: NO ACUTE CARDIOPULMONARY DISEASE. 2: Bilateral pulmonary nodules/masses, suspicious for metastatic disease. Reviewed, dictated and finalized at location A.
--- NOTE | 2021-08-06 10:04 | ECG_ITS ---
Measurements Intervals [place] Rate: P: [place]: QRS: QRSD: T: QT: QTc: Interpretive Statements NORMAL SINUS RHYTHM. NORMAL EKG Electronically Signed On 08-08-2021 9:01:49 CDT by Arun Chauhan M.D.
[2021-08-06 10:14] VITALS: BP 138/98; PULSE 95; RESP 20; TEMP 35.6; O2SAT 100
[2021-08-06 10:27] LABS: Base Excess ABG 3.9 mmol/L (0-2); HCO3 ABG 27.3 mmol/L (23-29); Oxygen Content ABG 19.8 %vol (16.0-22.0); Oxyhemoglobin 93.4 % (94-100); PCO2 ABG 37.2 mmHg (35-45); PO2 ABG 72.9 mmHg (75-85); Total Hemoglobin 15.1 g/dL (12.0-18.0); pH ABG 7.48 (7.35-7.45)
[2021-08-06 10:28] LABS: Basophils Absolute Auto 0.01 K/mm3 (0.00-0.10); Basophils Percent Auto 0.1 % (0.0-1.0); Device NASAL CANNULA; Eosinophils Absolute Auto 0.01 K/mm3 (0.02-0.50); Eosinophils Percent Auto 0.1 % (1.0-6.0); Immature Granulocyte Absolute 0.05 K/mm3 (0.00-0.00); Immature Granulocyte Percent A 0.6 % (0.0-0.0); Lymphocytes Absolute Auto 2.04 K/mm3 (1.10-4.50); Lymphocytes Percent Auto 23.8 % (18.0-42.0); Mean Corpuscular HGB Conc 34.1 g/dL (32.0-36.0); Mean Corpuscular Hemoglobin 31.1 pg (27.0-31.0); Mean Corpuscular Volume 91.3 fL (78.0-102.0); Mean Platelet Volume 8.7 fl (8.7-11.0); Modified Allen's Test Pass; Monocytes Absolute Auto 0.69 K/mm3 (0.10-0.90); Neutrophils Absolute Auto 5.8 K/mm3 (1.7-7.2); Neutrophils Percent Auto 67.4 % (50.0-70.0); Platelet Count Result 226 K/mm3 (150-420); Red Blood Count 4.82 M/mm3 (4.70-6.10); Red Cell Distribution Width 13.5 % (11.6-14.4); Site Drawn RIGHT RADIAL; White Blood Count 8.6 K/mm3 (4.8-10.8)
[2021-08-06 10:43] LABS: INR 0.9; Partial Thromboplastin Time 23.3 SEC (23.90-30.70); Prothrombin Time 9.8 Seconds (9.50-12.10)
--- NOTE | 2021-08-06 10:45 | PC.NURSE ---
upon arrival to ed patient is in a depend diaper that has been on since his last visit patient reports on and patient's pants are inside out and soild. patient reports he has not eaten in several days and his home health aid has not been showing up like she is suppose to. patient reports last time he saw her was Sunday.
[2021-08-06 10:51] LABS: Alanine Aminotransferase 27 U/L (16-63); Albumin Level 3.2 g/dL (3.4-5.0); Alkaline Phosphatase 99 U/L (46-116); Anion Gap 6 mmol/L (8-16); Aspartate Amino Transferase 13 U/L (15-37); Bilirubin,Total 1.2 mg/dL (0.00-1.00); Blood Urea Nitrogen 17 mg/dL (7-18); Calcium 8.8 mg/dL (8.5-10.1); Carbon Dioxide 33 mmol/L (21-32); Chloride 95 mmol/L (98-108); Estimated CRCL calculation 100 ml/min; Estimated Glomerular Filt Rate > 60; Glucose 105 mg/dL (70-99); Magnesium 1.8 mg/dL (1.8-2.4); NT Pro B Type Natriuretic Pept 906 pg/mL (0-125); Osmolality Calculated 279 mOsm/kg (285-295); Potassium 3.9 mmol/L (3.5-5.1); Sodium 134 mmol/L (136-145); Total Protein 6.3 g/dL (6.4-8.2); Troponin I 18.8 ng/L (0.00-60.4)
--- NOTE | 2021-08-06 11:01 | ED.SOB ---
HPI - SOB/Dyspnea General Chief Complaint: Shortness of Breath/Dyspnea Stated Complaint: ambulance Time Seen by Provider: 08/06/21 11:01 Source: patient and EMS Mode of arrival: EMS Limitations: physical limitation History of Present Illness HPI Narrative: this is a 66-year-old gentleman with history of COPD and history of lung cancer presents via EMS to our facility with some shortness of breath, the patient was recently discharged from the hospital, the patient is frequent to our facility and has been brought to the ER practically every day if not every other day the patient has home health that has not been to his home in the last 2 to 3 days. Was discharged on Sunday and with history of COPD the patient has issues with some compliance and does smoke cigarettes. The patient has not used his home oxygen. Currently the patient felt short of breath with some nonproductive cough with no chest pain no fever chills, no nausea vomiting no diarrhea constipation no abdominal pain no flank pain. The patient was admitted and refused any type of half-way placement. MD elicited complaint: shortness of breath Pertinent past history: COPD Onset (ago): hour(s) Context: smoke/fume exposure ( tobacco abuse) Related Data Home Medications Medication Instructions Recorded Confirmed enalapril maleate 20 mg PO DAILY 02/15/20 08/06/21 gabapentin 800 mg PO TID 04/23/21 08/06/21 Allergies Allergy/AdvReac Type Severity Reaction Status Date / Time No Known Allergies Allergy Verified 08/06/21 10:37 Review of Systems Review of Systems: All systems reviewed & are unremarkable except as noted in HPI and below PMFSH Past Medical History Medical History COPD (chronic obstructive pulmonary disease) Lung cancer Parkinsons Pleurisy without effusion Family History Family History Mother Chronic obstructive pulmonary disease Heart disease Father Chronic obstructive pulmonary disease Heart disease Social History Social History Smoking packs per day: 1 Smoking cigarettes per day: 20.0 Years smoked: 50 Smoking pack-years: 50.00 Smoking status: Current some day smoker Tobacco type: cigarettes Second hand tobacco smoke exposure: Yes Alcohol intake: current Drinks per week: 1 Substance use: never Substance use type: does not use Gender identity (if verbalized by the patient): Male Sexual Orientation (if Verbalized by the Patient): Straight or Heterosexual Spiritual care concerns: No Exam Const: General: no acute distress Orientation/consciousness: patient oriented x3 HENMT: Head: normal to inspection Eyes: Conjunctivae: conjunctivae normal Pupils: Equal, round and reactive pupils present EOM: EOMs intact bilaterally Direct Ophthalmoscopy: no photophobia Neck: Neck: normal visual inspection, no lymphadenopathy and no meningeal signs Chest: Chest palpation & inspection: normal inspection of the chest Resp: Effort & Inspection: normal respiratory effort Auscultation: rhonchi and diminished lung sounds Cardio: Rate: regular rate Rhythm: regular rhythm GI: GI Palp: Yes Soft to palpation Percussion: Yes normal to percussion : Testes: Testes normal Back/Spine/Pelvis: Back: no CVA tenderness Skin: General skin exam: normal color Rashes: no rashes Neuro: General: patient oriented x3, moves all extremities, no meningeal signs and no focal motor deficits Extrem: General: normal to inspection and no pedal edema Psych: Mental Status: mental status grossly normal Course Course Emergency Course: Patient was given breathing treatment and Solu-Medrol in route via EMS, the patient was put on 3L of oxygen which she currently is on at home and is 100%. Patient receives Xopenex neb treatment, x-rays performed of the chest show no a
[2021-08-06] MEDS: LEVALBUTEROL NEB 1.25 MG/3 ML 2.5 MG INHALATION (11:04)
--- NOTE | 2021-08-06 11:07 | PC.NURSE ---
Rn spoke with case managment about patient's recurrent visits to ed. patient states his help at home home care assistant divina has not been showing up and he has not seen her since sunday. patient reports he does not have her number or any way of getting ahold of her. rn called help at home after hours number to see if they could get contact information to discover why she has not been taking care of patient. waiting waste reduction coordinator back from after hours cash posting representative.
--- NOTE | 2021-08-06 11:40 | PC.NURSE ---
patient up for discharge at this time. ambulance has been called to take patient back. patient is on 3L o2 and has no one to get his o2 to bring it here for transportation. due to the situation that the patient has reported upon arrival adult protective services will be called for wellness check.
[2021-08-06 11:50] VITALS: BP 135/80; PULSE 91; RESP 16; TEMP 36.8; O2SAT 98
== END 2021-08-06 12:10 | disposition home or self-care (01) ==
PROVIDERS: Emergency Provider Emergency Medicine; PCP Physician Assistant
DX: J44.9 Chronic obstructive pulmonary disease, unspecified (principal); C34.90 Malignant neoplasm of unspecified part of unspecified bronchus or lung; G20 Parkinson's disease; F17.200 Nicotine dependence, unspecified, uncomplicated
CPT/HCPCS: 36415; 36600; 71045; 80053; 82805; 83735; 83880; 84484; 85025; 85610; 85730; 93005; 99284

== ENCOUNTER 2021-08-11 17:50 | Emergency (ER) | payer MEDICARE, MEDICAID, SELFPAY ==
--- NOTE | ~2021-08-11 | XR_ITS ---
EXAMINATION: XR chest 1V portable EXAM DATE: 08/11/2021 18:13 INDICATION: SOB and central chest pain TECHNIQUE: Portable AP frontal chest x-ray was obtained. Comparison is made to prior examination from 08/06/2021. FINDINGS: Again there is approximately 4 cm masslike region in the left lower lobe. Multiple other no dules were identified on chest CT from 06/25/2021. No evidence of superimposed acute airspace disease. No pneumothorax or pleural effusion. The cardiomediastinal silhouette is prominent but magnified on t his AP technique. There are bony degenerative changes. IMPRESSION: Left lower lobe mass unchanged. Other pulmonary nodules less well visualized. No acute f indings. Reviewed, dictated and finalized at location G. IMPRESSION: Left lower lobe mass unchanged. Other pulmonary nodules less well visualized. No acute findings.
[2021-08-11 18:02] VITALS: BP 158/98; PULSE 91; RESP 16; TEMP 36.2; O2SAT 98
--- NOTE | 2021-08-11 18:02 | ECG_ITS ---
Measurements Intervals [place] Rate: 88 P: 7 [place]: 159 QRS: 39 QRSD: 92 T: -5 QT: 346 QTc: 421 Interpretive Statements SINUS RHYTHM NONSPECIFIC T-WAVE ABNORMALITY ABNORMAL ECG COMPARED TO ECG 08/04/2021 22:34:36 NO SIGNIFICANT CHANGES Electronically Signed On 08-12-2021 16:10:16 CDT by Arun Chauhan M.D.
[2021-08-11 18:21] LABS: Basophils Absolute Auto 0.02 K/mm3 (0.00-0.10); Basophils Percent Auto 0.2 % (0.0-1.0); Hematocrit 36.9 % (37.0-46.0); Hemoglobin 12.7 g/dL (12.4-15.3); Immature Granulocyte Percent A 0.9 % (0.0-0.0); Lymphocytes Absolute Auto 1.13 K/mm3 (1.10-4.50); Lymphocytes Percent Auto 10.6 % (18.0-42.0); Mean Corpuscular HGB Conc 34.4 g/dL (32.0-36.0); Mean Corpuscular Hemoglobin 31.1 pg (27.0-31.0); Mean Corpuscular Volume 90.4 fL (78.0-102.0); Mean Platelet Volume 8.3 fl (8.7-11.0); Monocytes Absolute Auto 0.43 K/mm3 (0.10-0.90); Neutrophils Absolute Auto 8.9 K/mm3 (1.7-7.2); Neutrophils Percent Auto 84.3 % (50.0-70.0); Platelet Count Result 191 K/mm3 (150-420); Red Blood Count 4.08 M/mm3 (4.70-6.10); Red Cell Distribution Width 13.2 % (11.6-14.4); White Blood Count 10.6 K/mm3 (4.8-10.8)
[2021-08-11] MEDS: methylPREDNISolone ACETATE 40 MG/ML VIAL 80 MG IM (18:27)
[2021-08-11] MEDS: KETOROLAC (*BKC) 60 MG/2 ML VIAL IM (18:43)
[2021-08-11 18:44] LABS: Alanine Aminotransferase 26 U/L (16-63); Albumin Level 2.9 g/dL (3.4-5.0); Alkaline Phosphatase 81 U/L (46-116); Anion Gap 6 mmol/L (8-16); Aspartate Amino Transferase 13 U/L (15-37); Bilirubin,Total 0.4 mg/dL (0.00-1.00); Blood Urea Nitrogen 15 mg/dL (7-18); Calcium 8.2 mg/dL (8.5-10.1); Carbon Dioxide 31 mmol/L (21-32); Chloride 91 mmol/L (98-108); Estimated CRCL calculation 98 ml/min; Estimated Glomerular Filt Rate > 60; Glucose 154 mg/dL (70-99); Osmolality Calculated 269 mOsm/kg (285-295); Potassium 4.4 mmol/L (3.5-5.1); Sodium 128 mmol/L (136-145); Total Protein 5.7 g/dL (6.4-8.2); Troponin I 10.1 ng/L (0.00-60.4)
--- NOTE | 2021-08-11 19:21 | ED.SOB ---
HPI - SOB/Dyspnea General Chief Complaint: Shortness of Breath/Dyspnea Stated Complaint: AMB Source: patient and EMS Mode of arrival: ambulatory Limitations: no limitations History of Present Illness HPI Narrative: this is a 66-year-old gentleman that has a history of COPD and history of lung cancer with a mass in his left lower lung presents via EMS with some mild shortness of breath, the patient received a nebulizer treatment EN route via EMS and O2 sats are 98% on room air patient is currently not short of breath no cough no fever does have some left sided pain. There is no fever or chills no chest pain no abdominal pain no flank pain no nausea vomiting diarrhea constipation. MD elicited complaint: shortness of breath Pertinent past history: COPD Onset (ago): month(s) Context: anxiety Timing: intermittent Severity: mild Related Data Home Medications Medication Instructions Recorded Confirmed enalapril maleate 20 mg PO DAILY 02/15/20 08/11/21 gabapentin 800 mg PO TID 04/23/21 08/11/21 Allergies Allergy/AdvReac Type Severity Reaction Status Date / Time No Known Allergies Allergy Verified 08/11/21 18:07 Review of Systems Review of Systems: All systems reviewed & are unremarkable except as noted in HPI and below PMFSH Past Medical History Medical History COPD (chronic obstructive pulmonary disease) Lung cancer Parkinsons Pleurisy without effusion Family History Family History Mother Chronic obstructive pulmonary disease Heart disease Father Chronic obstructive pulmonary disease Heart disease Social History Social History Smoking packs per day: 1 Smoking cigarettes per day: 20.0 Years smoked: 50 Smoking pack-years: 50.00 Smoking status: Current some day smoker Tobacco type: cigarettes Second hand tobacco smoke exposure: Yes Alcohol intake: current Drinks per week: 1 Substance use: never Substance use type: does not use Gender identity (if verbalized by the patient): Male Sexual Orientation (if Verbalized by the Patient): Straight or Heterosexual Spiritual care concerns: No Exam Const: General: no acute distress Orientation/consciousness: patient oriented x3 HENMT: Head: normal to inspection Eyes: Conjunctivae: conjunctivae normal Pupils: Equal, round and reactive pupils present Neck: Neck: normal visual inspection, no lymphadenopathy and no meningeal signs Chest: Chest palpation & inspection: normal inspection of the chest Resp: Effort & Inspection: normal respiratory effort Auscultation: clear to auscultation bilaterally Cardio: Rate: regular rate Rhythm: regular rhythm GI: GI Palp: Yes Soft to palpation Percussion: Yes normal to percussion : Testes: Testes normal Urinary Catheter: Urinary Catheter: patent and draining Back/Spine/Pelvis: Back: no CVA tenderness Skin: General skin exam: normal color Rashes: no rashes Neuro: General: patient oriented x3 and moves all extremities Course Course Emergency Course: Labs reviewed with patient sodium was some a little bit low and S is IV fluids, IV was placed patient was given Toradol , x-ray performed shows no acute intrapulmonary process except for non changed left lower lung mass. Vital Signs Vital signs: Vital Signs Temperature 36.2 C L 08/11/21 18:02 Pulse Rate 91 08/11/21 18:02 Respiratory Rate 16 08/11/21 18:02 Blood Pressure 158/98 H 08/11/21 18:02 Pulse Oximetry 98 08/11/21 18:02 Temperature 36.2 C L 08/11/21 18:02 Pulse Rate 91 08/11/21 18:02 Respiratory Rate 16 08/11/21 18:02 Blood Pressure 158/98 H 08/11/21 18:02 Pulse Oximetry 98 08/11/21 18:02 MDM - SOB/Dyspnea Lab Data Result diagrams: 08/11/21 18:16 08/11/21 18:16 Labs: Lab Results 08/11/21
[2021-08-11] MEDS: SODIUM CHLORIDE 0.9% IV 500 ML 999 ML IV CONT (19:30)
--- NOTE | 2021-08-11 20:33 | PC.NURSE ---
pt states that he does not have a ride home. attempted to contact pt's emergency contact with no answer. contacted [facility] for pt transport but their transfer team is out on a call. Contacted [facility]'s department to request [facility] for pt transport; informed that they will can us back once their transfer team becomes available.
--- NOTE | 2021-08-11 20:50 | PC.NURSE ---
[facility] dispatch called with update indicating that the [place] team is on a call and will follow up with them once they are back in service.
--- NOTE | 2021-08-11 21:35 | PC.NURSE ---
[facility] department called to inform us that [facility] is available to transport pt from the ER to his home residency.
[2021-08-11 22:12] VITALS: BP 143/102; PULSE 86; RESP 20; TEMP 36.9; O2SAT 97
--- NOTE | 2021-08-11 22:15 | PC.NURSE ---
[facility] transporting pt from ER to pt's home residency
== END 2021-08-11 22:15 | disposition home or self-care (01) ==
PROVIDERS: Emergency Provider Emergency Medicine; PCP Physician Assistant
DX: C34.32 Malignant neoplasm of lower lobe, left bronchus or lung (principal); J44.9 Chronic obstructive pulmonary disease, unspecified; G20 Parkinson's disease; F17.200 Nicotine dependence, unspecified, uncomplicated
CPT/HCPCS: 36415; 71045; 80053; 84484; 85025; 93005; 96360; 96372; 99284; J1030; J1885; J7040

== ENCOUNTER 2021-08-12 16:13 | Observation (INO) | payer MEDICARE, MEDICAID, SELFPAY ==
--- NOTE | ~2021-08-12 | XR_ITS ---
EXAMINATION: XR chest 1V portable EXAM DATE: 08/12/2021 16:56 INDICATION: Central chest pain with weakness and SOB. TECHNIQUE: Portable AP frontal chest x-ray was obtained. Comparison is made to prior examination from 08/11/2021. FINDINGS: There is retrocardiac 4 cm masslike density again noted. Other known pulmonary nodules are less well visualized. No pneumothorax or pleural effusion. No acute airspace disease. Cardiomediastin al silhouette is normal. There are bony degenerative changes. There is no significant interval change . IMPRESSION: Retrocardiac mass unchanged. No acute findings. Reviewed, dictated and finalized at location G.
[2021-08-12 16:15] VITALS: BP 127/86; PULSE 93; RESP 20; TEMP 36.4; O2SAT 97
--- NOTE | 2021-08-12 16:31 | ECG_ITS ---
Measurements Intervals [place] Rate: 84 P: 58 [place]: 159 QRS: 53 QRSD: 93 T: 72 QT: 374 QTc: 442 Interpretive Statements SINUS RHYTHM NORMAL ECG COMPARED TO ECG 08/11/2021 18:41:23 NO SIGNIFICANT CHANGES Electronically Signed On 08-14-2021 8:36:19 CDT by Josh Jackson M.D.
--- NOTE | 2021-08-12 16:41 | ED.GENADULT ---
HPI - General Adult General Chief complaint: Shortness of Breath/Dyspnea Stated complaint: AMB Source: patient and EMS Mode of arrival: EMS Limitations: no limitations History of Present Illness HPI narrative: Andrez is a 66M with a PMH of Parkinsons, COPD w/ 3L at home, and lung cancer that presented to the ED with chest pain via EMS. He is a frequent utilizer of the ED (>10 visits this month). He had left sided squeezing chest pain that started an hour ago. He has had SOB for a few days (was seen in the ED for this yesterday). The pain does not radiate, there is no lightheadedness, and no N/V. Related Data Home Medications Medication Instructions Recorded Confirmed enalapril maleate 20 mg PO DAILY 02/15/20 08/12/21 gabapentin 800 mg PO TID 04/23/21 08/12/21 Allergies Allergy/AdvReac Type Severity Reaction Status Date / Time No Known Allergies Allergy Verified 08/12/21 16:26 Review of Systems Constitutional: Constitutional: Reports no additional constitutional complaints, Denies chills and Denies fever(s) Eyes: Eyes: Reports no additional eye complaints ENT: Reports system reviewed and no additional complaints, except as documented Cardiovascular: Cardiovascular: Reports no additional cardiovascular complaints Respiratory: Respiratory: Reports as per HPI, Reports cough and Reports dyspnea Gastrointestinal: Gastrointestinal: Reports no additional gastrointestinal complaints Genitourinary: Genitourinary: Reports no additional male genitourinary complaints Musculoskeletal: Musculoskeletal: Reports no additional musculoskeletal complaints Integumentary/Breasts: Skin/Breast: Reports system reviewed and no additional complaints, except as docu Neurologic: Reports system reviewed and no additional complaints, except as documented Psychiatric: Psychiatric: Reports no additional psychiatric complaints Endocrine: Endocrine: Reports no additional endocrine complaints Hematologic/Lymphatic: Hematologic/Lymphatic: Reports no additional hematologic/lymphatic complaints Allergic/Immunologic: Allergic/Immunologic: Reports no additional allergic/immunologic complaints [facility] Past Medical History Medical History COPD (chronic obstructive pulmonary disease) Lung cancer Parkinsons Pleurisy without effusion Family History Family History Mother Chronic obstructive pulmonary disease Heart disease Father Chronic obstructive pulmonary disease Heart disease Social History Social History Smoking packs per day: 1 Smoking cigarettes per day: 20.0 Years smoked: 50 Smoking pack-years: 50.00 Smoking status: Former smoker Tobacco type: cigarettes Second hand tobacco smoke exposure: No Alcohol intake: former Drinks per week: 1 Substance use: unknown Substance use type: does not use Gender identity (if verbalized by the patient): Male Sexual Orientation (if Verbalized by the Patient): Straight or Heterosexual Spiritual care concerns: No Exam Const: General: no acute distress and alert; No confusion Orientation/consciousness: patient oriented x3 Limitations: No altered mental status HENMT: Head: normal to inspection Other: normocephalic, atraumatic Eyes: Conjunctivae: conjunctivae normal Pupils: Equal, round and reactive pupils present Neck: Neck: normal visual inspection Chest: Chest palpation & inspection: normal inspection of the chest Resp: Effort & Inspection: normal respiratory effort, not labored and not tachypneic Other: Diffuse scant wheezing but no increases work of breathing today. No cough present on exam Cardio: Rate: regular rate Rhythm: regular rhythm GI: Inspection: non-distended GI Palp: Yes Soft to palpation, No Tenderness to palpation present (GI) and No Guarding due to palpation present (GI
[2021-08-12] MEDS: ASPIRIN 81 MG CHEWABLE TABLET 324 MG PO (16:48)
[2021-08-12 16:55] LABS: Basophils Absolute Auto 0.02 K/mm3 (0.00-0.10); Basophils Percent Auto 0.2 % (0.0-1.0); Hematocrit 41.7 % (37.0-46.0); Hemoglobin 14.5 g/dL (12.4-15.3); Immature Granulocyte Absolute 0.08 K/mm3 (0.00-0.00); Immature Granulocyte Percent A 0.7 % (0.0-0.0); Mean Corpuscular HGB Conc 34.8 g/dL (32.0-36.0); Mean Corpuscular Hemoglobin 30.9 pg (27.0-31.0); Mean Corpuscular Volume 88.7 fL (78.0-102.0); Mean Platelet Volume 8.4 fl (8.7-11.0); Monocytes Absolute Auto 0.43 K/mm3 (0.10-0.90); Monocytes Percent Auto 3.7 % (2.0-11.0); Neutrophils Absolute Auto 10.5 K/mm3 (1.7-7.2); Neutrophils Percent Auto 89.4 % (50.0-70.0); Platelet Count Result 207 K/mm3 (150-420); Red Cell Distribution Width 13.1 % (11.6-14.4); White Blood Count 11.7 K/mm3 (4.8-10.8)
[2021-08-12 17:17] LABS: Alanine Aminotransferase 27 U/L (16-63); Albumin Level 3.3 g/dL (3.4-5.0); Alkaline Phosphatase 94 U/L (46-116); Anion Gap 8 mmol/L (8-16); Aspartate Amino Transferase 15 U/L (15-37); Bilirubin,Total 0.8 mg/dL (0.00-1.00); Blood Urea Nitrogen 11 mg/dL (7-18); Calcium 8.3 mg/dL (8.5-10.1); Carbon Dioxide 29 mmol/L (21-32); Chloride 90 mmol/L (98-108); Estimated CRCL calculation 598 ml/min; Estimated Glomerular Filt Rate > 60; Glucose 136 mg/dL (70-99); Osmolality Calculated 265 mOsm/kg (285-295); Potassium 4.2 mmol/L (3.5-5.1); Sodium 127 mmol/L (136-145)
[2021-08-12] MEDS: ACETAMINOPHEN 500 MG TABLET 1000 MG PO (17:17)
[2021-08-12 17:19] LABS: Lipase 89 U/L (73-393); Troponin I 13.2 ng/L (0.00-60.4)
[2021-08-12 17:21] VITALS: BP 129/74; PULSE 87; RESP 18; TEMP 36.5; O2SAT 96
[2021-08-12 17:26] LABS: NT Pro B Type Natriuretic Pept 1374 pg/mL (0-125)
[2021-08-12 18:05] LABS: Add Urine Microscopic? NO; Appearance Urine Clear (Clear); Bilirubin Urine Negative (Negative); Blood Urine Negative (Negative); Color Urine Light Yellow (Yellow); Glucose Urine UA Negative (Negative); Ketones Urine Negative (Negative); Leukocyte Esterase Ur Negative (Negative); Nitrate Urine Negative (Negative); Protein Urine Negative (Negative); Urobilinogen Urine 0.2 mg/dL (0.2-1.0)
--- NOTE | 2021-08-12 18:28 | PC.NURSE ---
report called to [facility] on [facility]. pt watching TV. Awaiting Admission orders to transport pt to room 208
--- NOTE | 2021-08-12 18:48 | PCDIET ---
pt ate sandwich, fruit cup, cottage cheese cup, applesauce cup , diet pepsi. pt unable to feed self related to tremors. fed per SCOUT [place].
[2021-08-12] MEDS: FUROSEMIDE 20 MG TABLET PO (19:46)
[2021-08-12] MEDS: ALBUTEROL SULFATE (*SP) INHALER 2 PUFF INHALATION (19:46)
[2021-08-12] MEDS: GABAPENTIN 400 MG CAPSULE 800 MG PO (19:46)
[2021-08-12] MEDS: SODIUM CHLORIDE 1 GM TABLET PO (19:47)
--- NOTE | 2021-08-12 20:34 | PC.NURSE ---
Patient admitted to room 208, is alert and oriented times 2, is also confused, anxious, o2 per orders, oriented to call light.
[2021-08-12 20:37] VITALS: BMI 27.3
[2021-08-12 22:00] VITALS: BP 128/79; PULSE 95; RESP 18; TEMP 36.3; O2SAT 97
[2021-08-12] MEDS: HYDROcodone/acetaminophen (*CRX) 5-325 MG TABLET 1 TAB PO (23:03)
[2021-08-12 23:50] VITALS: O2SAT 97
[2021-08-13] VITALS: BP 128/79; PULSE 95; RESP 18; TEMP 36.3; O2SAT 97
[2021-08-13 05:20] LABS: Anion Gap 3 mmol/L (8-16); Blood Urea Nitrogen 13 mg/dL (7-18); Calcium 8.2 mg/dL (8.5-10.1); Carbon Dioxide 34 mmol/L (21-32); Chloride 92 mmol/L (98-108); Estimated CRCL calculation 90 ml/min; Estimated Glomerular Filt Rate > 60; Glucose 127 mg/dL (70-99); Osmolality Calculated 270 mOsm/kg (285-295); Potassium 3.8 mmol/L (3.5-5.1); Sodium 129 mmol/L (136-145)
[2021-08-13] MEDS: ALBUTEROL SULFATE (*SP) INHALER 2 PUFF INHALATION (06:04)
[2021-08-13] MEDS: BUDESONIDE/FORMOTEROL (*SP) 160-4.5 MCG 6 GM INH 2 PUFF INHALATION (06:15)
[2021-08-13 08:00] VITALS: BP 123/86; PULSE 70; RESP 16; TEMP 36.2; O2SAT 98; O2SAT 99
--- NOTE | 2021-08-13 08:25 | PM.SD2 ---
Same Day Admit/Disch: HPI History of Present Illness Chief complaint: AMB Narrative: Andrez Owens is a 66 year old male that presented to our emergency department with complaints of shortness of breath and chest pains. Patient has a past medical history of COPD, lung cancer and Parkinson's disease. Patient is noncompliant with medication and making his doctor's appointment with his primary care physician and specialist. Patient is well-known to our establishment he visited our ED nearly every day. Patient is unable to care for himself at home and home health has dropped him as a patient due to his noncompliance and smoking in his household. This day patient is sitting up on the side of the bed eating his food. No distress noted patient denies any chest pain he does not appear to have any shortness of breath and denies it at this time. Patient informed that he will discharge home. Patient's vital signs and labs at baseline. Patient sodium 127 which is baseline for patient which is his reason for being admitted per ED doctor. Patient will be discharged home with sodium tabs. Patient will be educated once again on the importance of following up with his primary care physician and specialty. Patient asked once again if he would like to be placed into a longterm to assist him with his daily activities seeing though he is not capable of caring for himself. Will inform care coordination to inform Department of aging once again of patient admission into the hospital due to his inability to care for himself. There will be no change in care. [facility] Past Medical History Medical History COPD (chronic obstructive pulmonary disease) Lung cancer Parkinsons Pleurisy without effusion Family History Family History Mother Chronic obstructive pulmonary disease Heart disease Father Chronic obstructive pulmonary disease Heart disease Social History Social History Smoking packs per day: 1 Smoking cigarettes per day: 20.0 Years smoked: 50 Smoking pack-years: 50.00 Smoking status: Former smoker Tobacco type: cigarettes Second hand tobacco smoke exposure: No Alcohol intake: former Drinks per week: 1 Substance use: unknown Substance use type: does not use Gender identity (if verbalized by the patient): Male Sexual Orientation (if Verbalized by the Patient): Straight or Heterosexual Spiritual care concerns: No Same Day Admit/Disch: Med Pre-admit Medications Home Medications Medication Instructions Recorded Confirmed Type enalapril maleate 20 mg PO DAILY 02/15/20 08/12/21 History gabapentin 800 mg PO TID 04/23/21 08/12/21 History montelukast 10 mg PO DAILY #60 tablet 04/24/21 08/12/21 Rx budesonide-formoterol [Symbicort] 2 puff INHALATION BID #10.2 g 06/26/21 08/12/21 Rx prednisone 20 mg PO DAILY #60 tablet 07/19/21 08/12/21 Rx Spiriva Respimat 2 puff INHALATION QAM #4 g 07/26/21 08/12/21 Rx albuterol sulfate 2 puff INHALATION QID #8.5 g 07/26/21 08/12/21 Rx ibuprofen 800 mg PO TID #20 tablet 07/26/21 08/12/21 Rx methylprednisolone [Medrol (Sergio)] See Rx Instructions .ROUTE 07/26/21 08/12/21 Rx .COMPLEX #21 ea omeprazole magnesium [Prilosec OTC] 20 mg PO BID #20 tablet 07/26/21 08/12/21 Rx furosemide [Lasix] 20 mg PO BID #14 tablet 07/30/21 08/12/21 Rx sodium chloride 1 g PO BID #30 tablet 08/13/21 Rx Exam Narrative: GENERAL: This is a well-nourished, well-developed patient, in no apparent distress. HEAD: normocephalic, atraumatic. EYES: PERRL. Sclera clear/white. Vision is grossly intact. EARS: External ears normal, auditory canals clear and without drainage, TMs normal without perforation. Hearing grossly intact. NOSE: External nose normal with no obvious nasal discharge, nares without redness, no rhinorrhea. THROAT: Mucous membranes mo
[2021-08-13] MEDS: GABAPENTIN 400 MG CAPSULE 800 MG PO (08:45)
[2021-08-13] MEDS: ENALAPRIL MALEATE 5 MG TABLET 20 MG PO (08:48)
[2021-08-13] MEDS: MONTELUKAST SODIUM 10 MG TABLET PO (08:49)
[2021-08-13] MEDS: FUROSEMIDE 20 MG TABLET PO (08:50)
[2021-08-13] MEDS: SODIUM CHLORIDE 1 GM TABLET PO (08:51)
[2021-08-13] MEDS: predniSONE 20 MG TABLET PO (08:51)
--- NOTE | 2021-08-13 10:11 | PC.NURSE ---
[facility] service with no truck today, [facility]a Spe[facility] contacted and will not transport until guaranteed payment is secure, unable to reach insurance to provide authorization for transport due to office is closed, message left with [facility] [employer] for assistance to secure ride home for patient, does have oxygen requirements
--- NOTE | 2021-08-13 11:28 | PC.NURSE ---
Attempted med car transfer, al med transfer, no hours on weekends
--- NOTE | 2021-08-13 12:00 | PC.NURSE ---
[facility] contacted and given details of patient discharge, need for home oxygen but no home o2 tank and no one to give him a ride to his residence, agreeable to send unit to take home, faxed face sheet and PCS form to [facility].
--- NOTE | 2021-08-13 14:18 | PC.NURSE ---
Pt discharged to home with VSS. Discharge instructions given to pt. Medications reviewed with pt. RN encouraged pt to follow up with Doctor. Pt transported to home via [facility].
--- NOTE | 2021-08-16 09:41 | PC.NURSE ---
Invalid phone number for discharge call back.
== END 2021-08-13 12:40 | disposition home or self-care (01) ==
LOC: CHSED 18:10 → CHS2ND 18:17
PROVIDERS: Nurse Practitioner; Admitting Provider Internal Medicine; Emergency Provider Family Medicine; PCP Physician Assistant; Visit Provider Internal Medicine
DX: E87.1 Hypo-osmolality and hyponatremia (principal); C34.92 Malignant neoplasm of unspecified part of left bronchus or lung; R07.9 Chest pain, unspecified; G20 Parkinson's disease; J44.9 Chronic obstructive pulmonary disease, unspecified; F17.210 Nicotine dependence, cigarettes, uncomplicated; Z91.19 Patient's noncompliance with other medical treatment and regimen
CPT/HCPCS: 36415; 71045; 80048; 80053; 81003; 83690; 83880; 84484; 85025; 93005; 99285; A9270; G0378; J7512